=== PATIENT | female | born 1945 | race Caucasian/White ===

== ENCOUNTER → 2016-12-01 | Outpatient (CLI) | payer MEDICARE ==
--- NOTE | 2016-12-01 17:34 | BD ---
EXAMINATION TYPE: MG DEXA axial skeleton. DATE OF EXAM: 12/01/2016 COMPARISON: NONE CLINICAL HISTORY: Postmenopausal female. Height: 5 FT 4 1/2 IN Weight: 147 FRAX RISK QUESTIONS: Alcohol (3 or more units per day): NO Family History (Parent hip fracture): NO Glucocorticoids (More than 3mos): NO (Ex: prednisone, prednisolone, methylprednisolone, dexamethasone, and hydrocortisone). History of Fracture in Adulthood: NO Secondary Osteoporosis: 1. Type 1 Diabetes: NO 2. Hyperthyroidism: NO 3. Menopause before 45: YES 4. Malnutrition: NO 5. Chronic liver disease: NO Rheumatoid Arthritis: NO Current Tobacco Use: NO RISK FACTORS HISTORY OF: History of Wrist Fracture: YES BOTH When: A CHILD Active: YES Postmenopausal woman: TOTAL HYST AGE 45 MEDICATIONS: Additional Medications: LORAZAPAN,IBUPROFEN 800 MG, Additional History: PT HAD BREAST CA 2016 RAD AND CHEMO EXAM MEASUREMENTS: Bone mineral densitometry was performed using the [employer] System. Bone mineral density as measured about the Lumbar spine is: ----- L1-L4(G/cm2): 0.901 T Score Values are as follows: ----- L2: -3.1 ----- L3: -2.3 ----- L4: -1.7 ----- L1-L4: -2.3 Bone mineral density has: Decreased -0.1 since the study of: 2013 Bone mineral density about the R hip (g/cm2): 0.533 Bone mineral density about the L hip (g/cm2): 0.564 T Score values are as follows: -----R Neck: -3.6 -----L Neck: -3.4 -----R Total: -3.8 -----L Total: -3.8 Bone mineral density has: Decreased -13.4 centimeters study of: 2013 IMPRESSION: OSTEOPOROSIS. NOTE: T-SCORE=SD OF THE YOUNG ADULT MEAN.
== END | disposition home or self-care (01) ==
LOC: RADBDWWP 16:06
PROVIDERS: ATTEND Internal Medicine Hematology & Oncology
DX: M81.0 Age-related osteoporosis without current pathological fracture (principal); C50.311 Malignant neoplasm of lower-inner quadrant of right female breast; C50.511 Malignant neoplasm of lower-outer quadrant of right female breast; Z78.0 Asymptomatic menopausal state
CPT/HCPCS: 77080

== ENCOUNTER → 2016-12-23 | Outpatient (CLI) | payer MEDICARE ==
--- NOTE | 2016-12-23 15:18 | NM ---
EXAMINATION TYPE: NM bone scan whole body DATE OF EXAM: 12/23/2016 COMPARISON: NONE HISTORY: Breast CA Delayed whole-body scanning was performed following the injection of mCi Tc 99m MDP. Images acquired hours post injection. FINDINGS: No scintigraphic evidence to suggest metastatic disease at this time. Degenerative uptake about the s houlders, right hand and wrist, left hand and wrist, bilateral knees and left hip. IMPRESSION: No scintigraphic evidence to suggest metastatic disease at this time.
== END | disposition home or self-care (01) ==
LOC: RADNMMAIN 11:23
PROVIDERS: ATTEND Internal Medicine Hematology & Oncology
DX: C50.311 Malignant neoplasm of lower-inner quadrant of right female breast (principal); C50.511 Malignant neoplasm of lower-outer quadrant of right female breast
CPT/HCPCS: 78306; A9503

== ENCOUNTER → 2017-04-08 | Day surgery (SDC) | payer MEDICARE ==
--- NOTE | 2017-04-08 13:25 | USB ---
EXAMINATION TYPE: US biopsy breast VAD LT, MG diagnostic mammo LT wo CAD DATE OF EXAM: 04/08/2017 CLINICAL HISTORY: Z85.3 HX right-sided BREAST CA. Abnormal ultrasound. Palpable abnormality and lump right breast. TECHNIQUE: Ultrasound guided core biopsy of left breast with clip placement and follow-up two-view mammogram. COMPARISON: Left breast ultrasound March 12, 2017 FINDINGS: The procedure of ultrasound guided core biopsy was explained to the patient. Benefits, alternatives, and risks were discussed. An informed consent was then obtained. The patient was placed in supine positioning for imaging and for the procedure. Preprocedure imaging redemonstrates small curvilinear fluid collection 4:00 position left breast adjacent to area of heterogeneous hypoechoic tissue. The overlying skin was prepped and draped in usual sterile fashion. Lidocaine was used as anesthetic into the skin. Lidocaine with epinephrine is used as anesthetic into the deeper tissue up to area of concern in the left breast. Under ultrasound guidance, a 12-gauge vacuum assisted biopsy gun device was used to obtain 3 core samples. Following this, a biopsy clip was left in lesion. The patient tolerated the procedure well without any immediate complication. The patient was kept in the radiology department for short stay after the procedure and then discharged home in stable condition. Postprocedure mammogram shows successful deployment of clip. IMPRESSION: Successful, uncomplicated ultrasound guided core biopsy of area of concern in the left breast, full pathology results to follow. Intermediate index of suspicion noted at time of procedure. Pathology Results: Benign BREAST, LEFT, ULTRASOUND GUIDED CORE BIOPSY: FAT NECROSIS WITH FIBROSIS AND CHRONIC INFLAMMATION. NEGATIVE FOR MALIGNANCY Recommendation Follow up ultrasound of the left breast in 6 months. SUKHI
[2017-04-08 23:26] VITALS: BP 153/77; PULSE 86; RESP 16; TEMP 98.2; BMI 26.9
== END ==
LOC: RADUSWWP 11:51
PROVIDERS: ATTEND Plastic Surgery
DX: R92.8 Other abnormal and inconclusive findings on diagnostic imaging of breast (principal); N64.1 Fat necrosis of breast; N60.32 Fibrosclerosis of left breast; Z85.3 Personal history of malignant neoplasm of breast
CPT/HCPCS: 88305; 77065; 19083; A4648; J2001

== ENCOUNTER → 2017-06-10 | Outpatient (CLI) | payer MEDICARE ==
--- NOTE | 2017-06-11 11:21 | MM ---
Reason for exam: screening (asymptomatic). Last mammogram was performed 2 months ago. History: Patient is postmenopausal and has history of breast cancer at age 70. Family history of breast cancer in maternal aunt. Benign US biopsy breast VAD LT of the left breast, April 08, 2017. Malignant US biopsy breast VAD RT of the right breast, November 15, 2015. Malignant US biopsy breast add'l VAD RT of the right breast, November 15, 2015. Physical Findings: A clinical breast exam by your physician is recommended on an annual basis and results should be correlated with mammographic findings. MG 3D Screening Mammo W/Cad Bilateral CC and MLO view(s) were taken. Prior study comparison: October 18, 2015, bilateral MG 3d screening mammo w/cad. November 21, 2013, bilateral MG screening mammo w CAD. No significant changes when compared with prior studies. ASSESSMENT: Benign, BI-RAD 2 RECOMMENDATION: Routine screening mammogram of both breasts in 1 year.
== END | disposition home or self-care (01) ==
LOC: RADMAMWWP 15:13
PROVIDERS: ATTEND Surgery
DX: Z12.31 Encounter for screening mammogram for malignant neoplasm of breast (principal)
CPT/HCPCS: 77063; 77067

== ENCOUNTER → 2017-06-12 | Outpatient (CLI) | payer MEDICARE ==
--- NOTE | 2017-06-12 16:05 | XR ---
EXAMINATION TYPE: XR chest 2V DATE OF EXAM: 06/12/2017 COMPARISON: 01/07/2016 HISTORY: Shortness of breath and breast cancer TECHNIQUE: Frontal and lateral views of the chest are obtained. FINDINGS: Mildly prominent pulmonary vasculature without cephalization are unchanged from the prior o f 01/07/2016. Right-sided Mediport has been removed in the interim. There is no focal air space opacit y, pleural effusion, or pneumothorax seen. The cardiac silhouette size is within normal limits. Th e osseous structures are intact. There is diffuse osseous demineralization. Minimal multilevel degene rative changes of the thoracic spine are seen. IMPRESSION: No acute cardiopulmonary process.
== END | disposition home or self-care (01) ==
LOC: RADXRMAIN 15:09
PROVIDERS: ATTEND Nurse Practitioner Adult Health
DX: C50.311 Malignant neoplasm of lower-inner quadrant of right female breast (principal); C50.511 Malignant neoplasm of lower-outer quadrant of right female breast; M06.9 Rheumatoid arthritis, unspecified; Z17.1 Estrogen receptor negative status [ER-]
CPT/HCPCS: 71046

== ENCOUNTER → 2017-06-16 | Outpatient (CLI) | payer MEDICARE ==
--- NOTE | 2017-06-16 18:28 | ECHOF ---
Referral Reason:increasing shortness of breath R06.02 MEASUREMENTS -------- HEIGHT: 167.6 cm WEIGHT: 76.7 kg BP: RVIDd: 2.3 cm (< 3.3) IVSd: 1.1 cm (0.6 - 1.1) LVIDd: 3.7 cm (3.9 - 5.3) LVPWd: 1.1 cm (0.6 - 1.1) IVSs: 1.7 cm LVIDs: 2.6 cm LVPWs: 1.6 cm LAESV Index (A-L): 17.53 ml/m Ao Diam: 3.4 cm (2.0 - 3.7) AV Cusp: 2.0 cm (1.5 - 2.6) LA Diam: 2.9 cm (2.7 - 3.8) MV EXCURSION: 17.007 mm (> 18.000) MV EF SLOPE: 75 mm/s (70 - 150) EPSS: 0.9 cm MV E Apco: 0.63 m/s MV DecT: 277 ms MV A Paco: 0.85 m/s MV E/A Ratio: 0.73 RAP: 5.00 mmHg RVSP: 32.20 mmHg FINDINGS -------- Sinus rhythm. Pulsatile mass in the liver. May consider computed tomography scan or ultrasound of the liver for further evaluation This was a technically good study. The left ventricular size is normal. There is borderline concentric left ventricular hypertrophy. Overall left ventricular systolic function is normal with, an EF between 55 - 60 %. The right ventricle is normal in size and function. Normal LA size by volume 22+/-6 ml/m2. The right atrium is normal in size. The aortic valve is trileaflet, and appears structurally normal. No aortic stenosis or regurgitation. Mild mitral annular calcification present. There is trace to mild mitral regurgitation. Trace tricuspid regurgitation present. Right ventricular systolic pressure is normal at < 35 mmHg. There is no evidence of pulmonary hypertension. Trace/mild (physiologic) pulmonic regurgitation. The aortic root size is normal. Normal inferior vena cava with normal inspiratory collapse consistent with estimated right atrial pre ssure of 5 mmHg. There is a small pericardial effusion is located near the right ventricle. Incidental finding in li alicia. CONCLUSIONS -------- 1. Sinus rhythm. 2. Pulsatile mass in the liver. May consider computed tomography scan or ultrasound of the liver for further evaluation 3. This was a technically good study. 4. The left ventricular size is normal. 5. There is borderline concentric left ventricular hypertrophy. 6. Overall left ventricular systolic function is normal with, an EF between 55 - 60 %. 7. Normal LA size by volume 22+/-6 ml/m2. 8. The aortic valve is trileaflet, and appears structurally normal. No aortic stenosis or regurgitati on. 9. Mild mitral annular calcification present. 10. There is trace to mild mitral regurgitation. 11. Trace tricuspid regurgitation present. 12. Right ventricular systolic pressure is normal at < 35 mmHg. 13. There is no evidence of pulmonary hypertension. 14. Trace/mild (physiologic) pulmonic regurgitation. 15. The aortic root size is normal. 16. There is a small pericardial effusion is located near the right ventricle. 17. Incidental finding in liver. HOG STOMACH PREPARER: Suhail Joseph RDCS
== END | disposition home or self-care (01) ==
LOC: RADECHMAIN 12:50
PROVIDERS: ATTEND Internal Medicine Hematology & Oncology
DX: I34.0 Nonrheumatic mitral (valve) insufficiency (principal); I31.3 Pericardial effusion (noninflammatory); Z88.0 Allergy status to penicillin
CPT/HCPCS: 93306

== ENCOUNTER → 2017-07-03 | Outpatient (CLI) | payer MEDICARE ==
--- NOTE | 2017-07-03 08:33 | US ---
EXAMINATION TYPE: US liver DATE OF EXAM: 07/03/2017 COMPARISON: PET/CT 12/01/2015 CLINICAL HISTORY: C50.311 Breast Ca, R93.8 Abnormal Imaging. Liver lesion seen on recent echo, histor y of breast cancer EXAM MEASUREMENTS: Liver Length: 13.2 cm Gallbladder Wall: 0.3 cm CBD: 0.4 cm Right Kidney: 10.7 x 3.9 x 4.2 cm Pancreas: visualized portions appear wnl Liver: heterogeneous in appearance with multiple probable complex cystic areas, largest = 6.7 x 5.9 x 6.7cm Gallbladder: no evidence of stones Evidence for sonographic Martinez's sign: no CBD: wnl Right Kidney: no evidence of hydronephrosis IMPRESSION: 1. Multiple large cystic lesions throughout the liver were present on prior PET/CT fusion dated 2015.
== END ==
LOC: RADUSWWP 07:27
PROVIDERS: ATTEND Internal Medicine Hematology & Oncology
DX: C50.311 Malignant neoplasm of lower-inner quadrant of right female breast (principal); K76.89 Other specified diseases of liver
CPT/HCPCS: 76705

== ENCOUNTER → 2017-12-01 | Outpatient (CLI) | payer MEDICARE ==
--- NOTE | 2017-12-01 14:37 | US ---
EXAMINATION TYPE: US carotid duplex BILAT DATE OF EXAM: 12/01/2017 COMPARISON: NONE CLINICAL HISTORY: I65.23 Occlusion and stenosis of bilateral carotid. Patient denies symptoms. EXAM MEASUREMENTS: RIGHT: Peak Systolic Velocity (PSV) cm/sec ----- Right CCA: 72.9 ----- Right ICA: 74.7 ----- Right ECA: 69.6 ICA/CCA ratio: 1.0 RIGHT: End Diastole cm/sec ----- Right CCA: 22.3 ----- Right ICA: 25.0 ----- Right ECA: 0.0 LEFT: Peak Systolic Velocity (PSV) cm/sec ----- Left CCA: 68.8 ----- Left ICA: 83.6 ----- Left ECA: 88.6 ICA/CCA ratio: 1.2 LEFT: End Diastole cm/sec ----- Left CCA: 17.1 ----- Left ICA: 20.2 ----- Left ECA: 20.4 VERTEBRALS (direction of flow): Right Vertebral: Antegrade Left Vertebral: Antegrade Rhythm: Arrhythmia Moderate and irregular intimal wall changes are noted at bilateral carotid bifurcation, but PSV is wn l. IMPRESSION: Atheromatous plaquing and intimal thickening. Significant flow-limiting stenosis is not evident. Criteria for Assigning % of Stenosis / Diameter reduction (Estimation based on the indirect measurements of the internal carotid artery velocities (ICA PSV). 1. Normal (no stenosis)=ICA PSV < 125 cm/s: ratio < 2.0: ICA EDV<40 cm/s. 2. Less than 50% stenosis=ICA PSV < 125 cm/s: ratio < 2.0: ICA EDV<40 cm/s. 3. 50 to 69% stenosis=ICA PSV of 125 to 230 cm/s: ration 2.0 ? 4.0: ICA EDV 40-100 cm/s. 4. Greater than 70% stenosis to near occlusion= ICA PSV > 230 cm/s: ratio > 4.0: ICA EDV > 100 cm/s. 5. Near occlusion= ICA PSV velocities may be low or undetectable: variable ratio and ICA EDV. 6. Total occlusion=unable to detect flow.
== END | disposition home or self-care (01) ==
LOC: RADUSWWP 12:38
PROVIDERS: ATTEND Internal Medicine
DX: I67.2 Cerebral atherosclerosis (principal); I65.23 Occlusion and stenosis of bilateral carotid arteries
CPT/HCPCS: 93880

== ENCOUNTER → 2018-04-12 | Outpatient (CLI) | payer MEDICARE ==
--- NOTE | 2018-04-12 15:47 | BD ---
EXAMINATION TYPE: Axial Bone Density DATE OF EXAM: 04/12/2018 Comparison: Prior DEXA bone scan 2016. CLINICAL HISTORY: Height: 64.25 Weight: 155 FRAX RISK QUESTIONS: Alcohol (3 or more units per day): no Family History (Parent hip fracture): father broke femur, unsure if hip Glucocorticoids (More than 3mos): no (Ex: prednisone, prednisolone, methylprednisolone, dexamethasone, and hydrocortisone). History of Fracture in Adulthood: no Secondary Osteoporosis: 1. Type 1 Diabetes: no 2. Hyperthyroidism: no 3. Menopause before 45: yes 4. Malnutrition: no 5. Chronic liver disease: no Rheumatoid Arthritis: yes Current Tobacco Use: no RISK FACTORS HISTORY OF: History of Wrist Fracture: yes, both When: as child Surgery to Wrist (left): yes When: as young child Family History of Osteoporosis: unsure Active: yes Diet low in dairy products/other sources of calcium: no Postmenopausal woman: yes Take estrogen and/or progesterone medications: no Lost more than 2 inches in height since high school: yes Frequent falls: no Poor Health: no Hyperparathyroidism: no Adrenal Insufficiency: no MEDICATIONS: Thyroid Medications: no Osteoporosis Medications: no Additional Medications: Calcium & Vitamin D , Duloxetine HCL, Omeprazole, Lorazepam, Letrozole, ibupr ofen Additional History: Breast CA 2016/radiation-chemo EXAM MEASUREMENTS: Bone mineral densitometry was performed using the [employer] System. Bone mineral density as measured about the Lumbar spine is: ----- L1-L4(G/cm2): 0.769 T Score Values are as follows: ----- L2: -3.7 ----- L3: -3.4 ----- L4: -3.4 ----- L1-L4: -3.4 Bone mineral density has: Decreased -15.1% since study of: 12/01/2016 Bone mineral density about the R hip (g/cm2): 0.541 Bone mineral density about the L hip (g/cm2): 0.567 T Score values are as follows: -----R Neck: -3.6 -----L Neck: -3.4 -----R Total: -3.7 -----L Total: -3.7 Bone mineral density has: Increased 2.1% since study of: 12/01/2016 IMPRESSION: Osteoporosis (T Score less than -2.5) persistent bilateral hips and is now present in the low back. There remains increased fracture risk and therapy is usually indicated based on age. Re-Screen 1-2 years. NOTE: T-SCORE=SD OF THE YOUNG ADULT MEAN.
== END | disposition home or self-care (01) ==
LOC: RADBDWWP 12:23
PROVIDERS: ATTEND Internal Medicine Hematology & Oncology
DX: C50.311 Malignant neoplasm of lower-inner quadrant of right female breast (principal); M81.0 Age-related osteoporosis without current pathological fracture
CPT/HCPCS: 77080

== ENCOUNTER → 2018-06-11 | Outpatient (CLI) | payer MEDICARE ==
--- NOTE | 2018-06-11 11:52 | MM ---
Reason for exam: additional evaluation requested from prior study. Last mammogram was performed 1 year ago. History: Patient is postmenopausal and has history of breast cancer at age 70. Family history of breast cancer in maternal aunt. Benign US biopsy breast VAD LT of the left breast, April 08, 2017. Reductions of both breasts, 2017. Malignant US biopsy breast VAD RT of the right breast, November 15, 2015. Malignant US biopsy breast add'l VAD RT of the right breast, November 15, 2015. Chemotherapy, 2016. Radiation therapy, 2016. Taking antineoplastic for 3 years. Physical Findings: Nurse Summary: 1.5 x 2cm nodule in the left breast at 4 o'clock (nurse ts). MG 3D Diag Mammo W/Cad CHRIS Bilateral CC and MLO view(s) were taken. Prior study comparison: June 10, 2017, bilateral MG 3d screening mammo w/cad. April 08, 2017, left breast MG diagnostic mammo LT wo CAD. There is a distortion and increased density. There are benign appearing round calcifications in the left breast consistent with fat necrosis dystrophic calcifications. Previous mammotome biopsy in the left breast. There is chronic nodularity in the left breast. These results were verbally communicated with the patient and result sheet given to the patient on 06/11/18. ASSESSMENT: Probably benign, BI-RAD 3 RECOMMENDATION: Follow-up diagnostic mammogram of the left breast in 6 months.
== END | disposition home or self-care (01) ==
LOC: RADMAMWWP 10:45
PROVIDERS: ATTEND Radiology Radiation Oncology
DX: C50.311 Malignant neoplasm of lower-inner quadrant of right female breast (principal); Z17.0 Estrogen receptor positive status [ER+]
CPT/HCPCS: 77066; G0279; 77062

== ENCOUNTER → 2018-12-13 | Outpatient (CLI) | payer MEDICARE ==
--- NOTE | 2018-12-14 07:04 | MM ---
Reason for exam: follow-up at short interval from prior study. Last mammogram was performed 6 months ago. History: Patient is postmenopausal and has history of breast cancer at age 70. Family history of breast cancer in maternal aunt at age 70. Benign US biopsy breast VAD LT of the left breast, April 08, 2017. Reductions of both breasts, 2017. Malignant US biopsy breast VAD RT of the right breast, November 15, 2015. Malignant US biopsy breast add'l VAD RT of the right breast, November 15, 2015. Chemotherapy, 2015. Radiation therapy, 2016. Took hormonal contraceptives for 10 years. Taking antineoplastic for 3 years. Physical Findings: Nurse Summary: 2cm nodule in the left breast at 3 o'clock (nurse TM). MG 3D Diag Mammo W/Cad LT CC and MLO view(s) were taken of the left breast. Prior study comparison: June 11, 2018, bilateral MG 3d diag mammo w/cad CHRIS. June 10, 2017, bilateral MG 3d screening mammo w/cad. The breast tissue is almost entirely fat. Large area of fat necrosis left breast is stable with dystrophic calcifications. These results were verbally communicated with the patient and result sheet given to the patient on 12/13/18. ASSESSMENT: Benign, BI-RAD 2 RECOMMENDATION: Follow-up diagnostic mammogram of both breasts in 6 months. Manage patient on a clinical basis.
== END | disposition home or self-care (01) ==
LOC: RADMAMWWP 15:11
PROVIDERS: ATTEND Radiology Radiation Oncology
DX: C50.311 Malignant neoplasm of lower-inner quadrant of right female breast (principal); Z17.0 Estrogen receptor positive status [ER+]
CPT/HCPCS: 77065; G0279; 77061

== ENCOUNTER → 2019-04-21 | Day surgery (SDC) | payer MEDICARE ==
[2019-04-19 15:17] VITALS: BMI 26.0
[~2019-04-21] MED LIST: LACTATED RINGERS 1,000 ML IV SCH; PROPOFOL 10 MG/ML 20 ML VIAL IV ONE
[2019-04-21 09:57] VITALS: TEMP 98.2
[2019-04-21 10:00] LABS: Glucose,Whole Blood 155 mg/dL (75-99)
--- NOTE | 2019-04-21 10:55 | P.PCN ---
Date of Procedure: 04/21/19 Procedure(s) Performed: BRIEF HISTORY: Patient is a 73-year-old pleasant white female scheduled for an elective colonoscopy as a part of evaluation of positive cologuard. PROCEDURE PERFORMED: Attempted Colonoscopy. PREOPERATIVE DIAGNOSIS: Positive cologuard. IV sedation per Anesthesia. PROCEDURE: After informed consent was obtained, the patient, was brought into the endoscopy unit. IV sedation was administered by Anesthesia under continuous monitoring. Digital rectal examination was normal. Initially the Olympus CF-160 flexible video colonoscope was then inserted in the rectum, gradually advanced into the sigmoid: Further advancement was not possible because of acute angulation in this area. Despite multiple attempts and changing the scope to a pediatric colonoscopy was still unable to advance into the descending colon. At this time procedure was terminated. Scattered sigmoid diverticulosis seen. Mucosa of the sigmoid colon, and rectum appeared normal. Retroflexion was performed in the rectum and no lesions were seen. The patient tolerated the procedure well. IMPRESSION: Attempted colonoscopy up to the sigmoid: Further advancement was not possible because of acute angulation in this area. Sigmoid diverticula RECOMMENDATIONS: Findings of this examination were discussed with the patient as well as his family. She will be scheduled for a barium enema today to examine the rest of the colon. She'll be seen in office in 2 weeks.
[2019-04-21 11:07] VITALS: RESP 18
[2019-04-21 13:39] VITALS: BP 112/67; PULSE 62
--- NOTE | 2019-04-21 15:37 | XR ---
EXAMINATION TYPE: XR abdomen 1V DATE OF EXAM: 04/21/2019 2:15 PM CLINICAL HISTORY: Incomplete colonoscopy. TECHNIQUE: Single supine KUB image of the abdomen is obtained. COMPARISON: None. FINDINGS: Air is seen throughout the colon dilating the colon up to 7.0 cm. The entirety of the bowel is not visualized on this image was to evaluate for the possibility of barium enema. No dilated smal l bowel. Diffuse osseous demineralization and degenerative changes of the lumbar spine and hips. IMPRESSION: Postprocedure air mildly dilated portions of the colon.
--- NOTE | 2019-04-22 12:15 | FL ---
EXAMINATION TYPE: FL barium enema DATE OF EXAM: 04/22/2019 COMPARISON: None HISTORY: Incomplete colonoscopy TECHNIQUE: Attempts to perform a double air contrast unsuccessful due to the cooperative patient's in ability ability to roll onto her stomach. Study was performed as a single contrast study. Fluoroscopy time: 1 minute 48 seconds. Images: 25 FINDINGS: Barium is refluxed through the colon to appears to be the cecum. The appendix is not identi fied. The terminal ileum was not identified. Diverticular changes are within the sigmoid colon. No persistent suspicious area of circumferential n arrowing is evident. There are some additional scattered diverticuli present in the proximal transver se colon. Postevacuation film appears unremarkable. IMPRESSION: 1. Diverticulosis.
== END ==
LOC: ORWHC2ENDO 09:09
PROVIDERS: ATTEND Internal Medicine Gastroenterology
DX: K57.30 Diverticulosis of large intestine without perforation or abscess without bleeding (principal); E11.9 Type 2 diabetes mellitus without complications; M06.9 Rheumatoid arthritis, unspecified; K21.9 Gastro-esophageal reflux disease without esophagitis; Z86.69 Personal history of other diseases of the nervous system and sense organs; Z79.52 Long term (current) use of systemic steroids; Z79.84 Long term (current) use of oral hypoglycemic drugs; Z98.890 Other specified postprocedural states; Z88.0 Allergy status to penicillin; Z87.891 Personal history of nicotine dependence
CPT/HCPCS: 74018; 45330; J2704; 45378; 74270

== ENCOUNTER → 2019-04-22 | Outpatient (CLI) | payer MEDICARE | END | disposition home or self-care (01) | LOC: RADFLMAIN 08:07 | PROVIDERS: ATTEND Internal Medicine Gastroenterology | DX: Z53.9 Procedure and treatment not carried out, unspecified reason (principal) ==

== ENCOUNTER → 2019-06-13 | Outpatient (CLI) | payer MEDICARE ==
--- NOTE | 2019-06-13 13:59 | MM ---
Reason for exam: follow-up at short interval from prior study. Last mammogram was performed 6 months ago. History: Patient is postmenopausal and has history of breast cancer at age 70. Family history of breast cancer in maternal aunt at age 70. Benign US biopsy breast VAD LT of the left breast, April 08, 2017. Reductions of both breasts, 2017. Malignant US biopsy breast VAD RT of the right breast, November 15, 2015. Malignant US biopsy breast add'l VAD RT of the right breast, November 15, 2015. Chemotherapy, 2015. Radiation therapy, 2015. Took hormonal contraceptives for 10 years. Taking antineoplastic for 3 years. Physical Findings: Nurse Summary: lateral 1 x 1.5cm nodule in the left breast at 3 o'clock, medial 0.5 x 1cm nodule in the left breast at 3 o'clock (nurse ts). MG 3D Diag Mammo W/Cad CHRIS Bilateral CC and MLO view(s) were taken. Prior study comparison: December 13, 2018, left breast MG 3d diag mammo w/cad LT. June 11, 2018, bilateral MG 3d diag mammo w/cad CHRIS. There are scattered fibroglandular densities. No suspicious abnormality. Post therapy change on the left and associated fat necrosis. Left upper outer quadrant stable probable intramammary lymph node. No significant new findings when compared with previous films. These results were verbally communicated with the patient and result sheet given to the patient on 06/13/19. ASSESSMENT: Benign, BI-RAD 2 RECOMMENDATION: Routine screening mammogram of both breasts in 1 year.
== END | disposition home or self-care (01) ==
LOC: RADMAMWWP 12:57
PROVIDERS: ATTEND Radiology Radiation Oncology
DX: C50.311 Malignant neoplasm of lower-inner quadrant of right female breast (principal); Z17.0 Estrogen receptor positive status [ER+]
CPT/HCPCS: 77066; G0279; 77062

== ENCOUNTER → 2020-07-03 | Outpatient (CLI) | payer MEDICARE ==
--- NOTE | 2020-07-03 16:49 | BD ---
EXAMINATION TYPE: Axial Bone Density DATE OF EXAM: 07/03/2020 COMPARISON: 04/12/2018 CLINICAL HISTORY: Postmenopausal screening Height: 63.5 IN Weight: 164 LBS FRAX RISK QUESTIONS: Secondary Osteoporosis: 3. Menopause before 45: TOTAL HYST AGE 35 Rheumatoid Arthritis: YES RISK FACTORS HISTORY OF: History of Wrist Fracture: CHRIS WRIST FX AGE 10 Surgery to Wrist (CHRIS): APPROX AGE 10 Active: LIMITED Diet low in dairy products/other sources of calcium: YES Postmenopausal woman: TOTAL HYST AGE 35 Take estrogen and/or progesterone medications: NOT NOW . TOOK 5 YEARS Lost more than 2 inches in height since high school: YES 04/07" MEDICATIONS: Additional Medications: OMEPRAZOLE, DULOXETINE, RALOXIFENE, METFORMIN, LORAZEPAM, LISINOPRIL Additional History: BREAST CANCER WITH CHEMO AND RADIATION EXAM MEASUREMENTS: Bone mineral densitometry was performed using the [employer] System. Bone mineral density as measured about the Lumbar spine is: ----- L1-L4(G/cm2): 0.931 T Score Values are as follows: ----- L2: -2.3 ----- L3: -1.8 ----- L4: -1.9 ----- L1-L4: -2.1 Bone mineral density has: Increased 23.2% since study of: 04/12/2018 Bone mineral density about the R hip (g/cm2): 0.519 Bone mineral density about the L hip (g/cm2): 0.614 T Score values are as follows: -----R Neck: -3.7 -----L Neck: -3.0 -----R Total: -3.3 -----L Total: -3.4 Bone mineral density has: Increased 8.5% since study of: 04/12/2018 IMPRESSION: Osteoporosis (T Score less than -2.5). There is increased fracture risk and therapy is usually indicated based on age. Re-Screen 1-2 years. NOTE: T-SCORE=SD OF THE YOUNG ADULT MEAN.
--- NOTE | 2020-07-05 13:53 | MM ---
Reason for exam: screening (asymptomatic). Last mammogram was performed 1 year and 1 month ago. History: Patient is postmenopausal and has history of breast cancer at age 70. Family history of breast cancer in maternal aunt at age 70. Benign US biopsy breast VAD LT of the left breast, April 08, 2017. Reductions of both breasts, 2017. Malignant US biopsy breast VAD RT of the right breast, November 15, 2015. Malignant US biopsy breast add'l VAD RT of the right breast, November 15, 2015. Chemotherapy, 2015. Radiation therapy, 2015. Took hormonal contraceptives for 10 years. Taking antineoplastic for 3 years. Physical Findings: A clinical breast exam by your physician is recommended on an annual basis and results should be correlated with mammographic findings. MG 3D Screening Mammo W/Cad Bilateral CC and MLO view(s) were taken. Prior study comparison: June 13, 2019, bilateral MG 3d diag mammo w/cad CHRIS. December 13, 2018, left breast MG 3d diag mammo w/cad LT. Chronic changes in the left breast. No significant changes when compared with prior studies. ASSESSMENT: Benign, BI-RAD 2 RECOMMENDATION: Routine screening mammogram of both breasts in 1 year.
== END | disposition home or self-care (01) ==
LOC: RADMAMWWP 10:20
PROVIDERS: ATTEND Internal Medicine Hematology & Oncology
DX: Z12.31 Encounter for screening mammogram for malignant neoplasm of breast (principal); M81.0 Age-related osteoporosis without current pathological fracture; Z78.0 Asymptomatic menopausal state; Z80.3 Family history of malignant neoplasm of breast; Z85.3 Personal history of malignant neoplasm of breast
CPT/HCPCS: 77063; 77067; 77080

== ENCOUNTER 2020-12-07 13:18 | Emergency (ER) | payer MEDICARE ==
--- NOTE | 2020-12-07 14:53 | CT ---
EXAMINATION TYPE: CT brain gaye barnard DATE OF EXAM: 12/07/2020 COMPARISON: None HISTORY: fall CT DLP: 1020.[address] of the brain was performed. The ventricles, basal cisterns and sulci overlying the cerebral convexities demonstrate mild enlargem ent. There is no evidence for intracranial hemorrhage or sulcal effacement. There is decreased attenuatio n about the periventricular white matter and deep white matter of both cerebral hemispheres, compatib le with chronic small vessel ischemia. No mass effects are seen. If symptoms persist consider MRI. Osseous calvarium is intact. IMPRESSION: 1. Age related atrophic and chronic small vessel ischemic change without acute intracranial process seen at this time. CT Cervical Spine: Unenhanced CT of the cervical spine was performed with bone and soft tissue window settings submitted . Coronal and sagittal reconstruction is obtained. There is normal alignment and prevertebral soft tissues. No evidence for acute cervical fracture . Mo derate degenerative disc disease and spondylosis. Biapical scarring. IMPRESSION: 1. No evidence for acute fracture or subluxation of the cervical spine.
--- NOTE | 2020-12-07 14:56 | CT ---
EXAMINATION TYPE: CT facial bones wo con DATE OF EXAM: 12/07/2020 COMPARISON: None HISTORY: fall CT DLP: 798.[address] of the facial bones was performed in the axial and coronal planes. Bone and soft tissu e window settings are submitted. There is displaced and depressed nasal bone fracture with nasal spine involvement. Soft tissue swelli ng noted. No additional fracture seen. The globes are intact. Paranasal sinuses are well-aerated. IMPRESSION: 1. There is displaced and depressed nasal bone fracture with nasal spine involvement.
--- NOTE | 2020-12-07 15:21 | XR ---
EXAMINATION TYPE: XR hand complete RT DATE OF EXAM: 12/07/2020 COMPARISON: None HISTORY: Severe arthritis fixation of the hands TECHNIQUE: 3 view right hand FINDINGS: Advanced degenerative changes are present. There is extensive erosive changes of the fourth and fifth metacarpals. There is fusion of the metacarpal phalangeal regions of the thumb. Loss of prasanth int spaces. The index and middle fingers. Advanced degenerative changes are at radial carpal junction . There is fusion of the carpal and metacarpal osseous structures. An acute fracture is not identified. Follow-up can be performed 7-10 days from acute trauma for shukri nued pain. IMPRESSION: 1. No acute osseous abnormality. 2. Extensive destructive degenerative changes throughout the hand and wrist
--- NOTE | 2020-12-07 15:22 | ED ---
General Adult HPI - General Source: patient Mode of arrival: ambulatory Limitations: no limitations <Juancarlos Gill - Last Filed: 12/07/20 15:24> <Mariluz Brunner - Last Filed: 12/08/20 14:14> - General Chief complaint: Fall Stated complaint: Fall Time Seen by Provider: 12/07/20 13:40 - History of Present Illness Initial comments: 75-year-old female presents to the emergency room for a chief complaint of fall. Patient was in the bathroom and went to stand put something in a cabinet and tripped over the rug. Patient fell and hit her nose and mouth on the floor. No loss of consciousness. No blood thinners. Patient states her nose was bleeding but that has mostly resolved. Patient denies any loose teeth. Patient denies headache.Patient has no other complaints at this time including shortness of breath, chest pain, abdominal pain, nausea or vomiting, headache, or visual changes. (Juancarlos Gill) - Related Data Home Medications Medication Instructions Recorded Confirmed LORazepam [Ativan] 0.5 mg PO TID PRN 10/19/14 05/16/20 DULoxetine HCL [Cymbalta] 60 mg PO HS 04/19/19 05/16/20 Omeprazole 20 mg PO DAILY 04/19/19 05/16/20 Raloxifene [Evista] 60 mg PO HS 04/19/19 05/16/20 metFORMIN HCL [Glucophage] 500 mg PO BID 04/19/19 05/16/20 predniSONE 4 mg PO DAILY 04/19/19 05/16/20 Lisinopril [Prinivil] 10 mg PO DAILY 05/09/20 05/16/20 Allergies Allergy/AdvReac Type Severity Reaction Status Date / Time Penicillins Allergy Itching Verified 12/07/20 13:32 Review of Systems ROS Other: All systems not noted in ROS Statement are negative. <Juancarlos Gill - Last Filed: 12/07/20 15:24> ROS Other: All systems not noted in ROS Statement are negative. <Mariluz Brunner - Last Filed: 12/08/20 14:14> ROS Statement: Those systems with pertinent positive or pertinent negative responses have been documented in the HPI. Past Medical History Past Medical History: Cancer, GERD/Reflux, Rheumatoid Arthritis (RA) Additional Past Medical History / Comment(s): "head tremors", Right Breast Cancer (Nov 2015) History of Any Multi-Drug Resistant Organisms: None Reported Past Surgical History: Hysterectomy Additional Past Surgical History / Comment(s): right breast lumpectomy 2016,left breast reduction 2016 skin cysts removed, Breast bx. Past Anesthesia/Blood Transfusion Reactions: No Reported Reaction Past Psychological History: Anxiety Smoking Status: Former smoker Past Alcohol Use History: None Reported Past Drug Use History: None Reported - Past Family History Brother(s) Family Medical History: Cancer <Juancarlos Gill - Last Filed: 12/07/20 15:24> General Exam Limitations: no limitations General appearance: alert, in no apparent distress Head exam: Present: atraumatic Eye exam: Present: normal appearance, PERRL, EOMI. Absent: scleral icterus, conjunctival injection ENT exam: Present: normal exam, normal oropharynx, mucous membranes moist, other (tenderness to the nasal bridge. No epistaxis at this time. no septal hematoma.) Neck exam: Present: normal inspection, full ROM. Absent: tenderness Respiratory exam: Present: normal lung sounds bilaterally. Absent: respiratory distress, wheezes Cardiovascular Exam: Present: regular rate, normal rhythm, normal heart sounds GI/Abdominal exam: Present: soft, normal bowel sounds. Absent: distended, tenderness <Juancarlos Gill - Last Filed: 12/07/20 15:24> - General Exam Comments Initial Comments: Ecchymosis noted to the right third digit. Patient does have chronic deformities noted of the hands. There is minimal generalized tenderness of the right third digit. No other traumatic injury in the upper or lower extremities. (Juancarlos Gill) Course Vital Signs 12/07/20 12/07/20 13:29 15:44 Temperature 97.9 F 97.6 F Pulse Rate 79 76 Respiratory 16 18 Rate Blood Pressure 155/75 149/77 O2 Sat by Pulse 95 98 Oximetry Medical Decision Making <Juancarlos Gill - Last Filed: 12/07/20 15:24> <Mariluz Brunner - Last Filed: 12/08/20 14:14> - Medical Decision Making CT brain shows age-related atrophic and chronic small vessel ischemic changes without acute cranial process seen. CT cervical spine shows no evidence for acute fracture or subluxation. CT nasal bones does show a displaced and depressed nasal bone fracture with nasal spine involvement. X-ray of the right hand shows no acute osseous abnormality, destructive changes noted. Patient was given ENT follow-up. She was encouraged not to blow her nose. She will return for any worsening symptoms. (Juancarlos Gill) I was available for consultation in the emergency department. The history and physical exam were done by the midlevel provider. I was consulted for this patients care. I reviewed the case with the midlevel provider and based on their presentation of the patient, I agree with the assessment, medical decision making and plan of care as documented. Chart was dictated using [employer] dictation software. Attempts were made to correct any dictation errors however some typographical errors may persist. Patient was seen during a national state of emergency due to the Covid-19 pandemic. (Mariluz Brunner) Disposition Is patient prescribed a controlled substance at d/c from ED?: No Time of Disposition: 15:26 <Juancarlos Gill - Last Filed: 12/07/20 15:24> <Mariluz Brunner - Last Filed: 12/08/20 14:14> Clinical Impression: Nasal fracture Disposition: HOME SELF-CARE Condition: Good Instructions (If sedation given, give patient instructions): Nasal Fracture (ED) Additional Instructions: Take tylenol for pain. Ice the nose on and off. Try to refrain from blowing your nose. Return to the ER for any worsening symptoms. Other guevara follow up with ENT. Referrals: Nieves Martin MD [Primary Care Provider] - 1-2 days George Sharma MD [STAFF PHYSICIAN] - 1-2 days Aram Garcia MD [STAFF PHYSICIAN] - 1-2 days
[2020-12-07 15:46] VITALS: BP 149/77; PULSE 76; RESP 18; TEMP 97.6
== END 2020-12-07 15:47 | disposition home or self-care (01) ==
LOC: EC 13:18
DX: S02.2XXA Fracture of nasal bones, initial encounter for closed fracture (principal); K21.9 Gastro-esophageal reflux disease without esophagitis; M06.9 Rheumatoid arthritis, unspecified; F41.9 Anxiety disorder, unspecified; Z79.52 Long term (current) use of systemic steroids; Z79.84 Long term (current) use of oral hypoglycemic drugs; Z79.899 Other long term (current) drug therapy; Z87.891 Personal history of nicotine dependence; Z88.0 Allergy status to penicillin; Z85.3 Personal history of malignant neoplasm of breast; W01.0XXA Fall on same level from slipping, tripping and stumbling without subsequent striking against object, initial encounter
CPT/HCPCS: 70450; 70486; 72125; 99284

== ENCOUNTER → 2021-07-25 | Outpatient (CLI) | payer MEDICARE ==
--- NOTE | 2021-07-29 11:35 | MM ---
Reason for exam: screening (asymptomatic). Last mammogram was performed 1 year and 1 month ago. History: Patient is postmenopausal and has history of breast cancer at age 70. Family history of breast cancer in maternal aunt at age 70. Benign US biopsy breast VAD LT of the left breast, April 08, 2017. Reductions of both breasts, 2017. Malignant US biopsy breast VAD RT of the right breast, November 15, 2015. Malignant US biopsy breast add'l VAD RT of the right breast, November 15, 2015. Chemotherapy, 2015. Radiation therapy, 2016. Took hormonal contraceptives for 10 years. Taking antineoplastic for 3 years. Physical Findings: A clinical breast exam by your physician is recommended on an annual basis and results should be correlated with mammographic findings. MG 3D Screening Mammo W/Cad Bilateral CC and MLO view(s) were taken. Prior study comparison: July 03, 2020, bilateral MG 3d screening mammo w/cad. June 13, 2019, bilateral MG 3d diag mammo w/cad [facility]. There are scattered fibroglandular densities. Focal asymmetry in the left breast is stable. No significant changes when compared with prior studies. ASSESSMENT: Benign, BI-RAD 2 RECOMMENDATION: Routine screening mammogram of both breasts in 1 year.
== END | disposition home or self-care (01) ==
LOC: RADMAMWWP 13:11
PROVIDERS: ATTEND Internal Medicine Hematology & Oncology
DX: Z12.31 Encounter for screening mammogram for malignant neoplasm of breast (principal); Z78.0 Asymptomatic menopausal state; Z85.3 Personal history of malignant neoplasm of breast; Z80.3 Family history of malignant neoplasm of breast
CPT/HCPCS: 77063; 77067

== ENCOUNTER → 2022-06-12 | Outpatient (CLI) | payer MEDICARE ==
--- NOTE | 2022-06-12 14:57 | USB ---
Patient History: Menarche at age 11. First Full-Term at age 20. Left ovary removed at age 35. Right ovary removed at age 35. Hysterectomy at age 35. Postmenopausal. Breast cancer, age 70. Patient used Hormonal Contraceptives for 10 years. 2016, Bilateral Reduction. 04/08/2017, Benign Core Biopsy on the left side. 11/15/2015, Malignant Core Biopsy on the right side. 11/15/2015, Malignant Core Biopsy on the right side. 2015, Chemotherapy. 2015, Radiation Therapy. Maternal aunt had breast cancer, age 70. Prior Study Comparison: 06/13/2019 Bilateral Diagnostic Mammogram, [facility]. 07/03/2020 Bilateral Screening Mammogram, [facility]. 07/25/2021 Bilateral Screening Mammogram, [facility]. Findings: The axilla of the right breast was scanned. Electronically signed and approved by: Napoleon Palmer M.D. Radiologist
== END | disposition home or self-care (01) ==
LOC: RADUSWWP 12:00
PROVIDERS: ATTEND Internal Medicine
DX: D36.0 Benign neoplasm of lymph nodes (principal); Z78.0 Asymptomatic menopausal state; Z80.3 Family history of malignant neoplasm of breast

== ENCOUNTER → 2022-07-07 | Outpatient (CLI) | payer MEDICARE ==
--- NOTE | 2022-07-07 15:40 | BD ---
EXAMINATION TYPE: Axial Bone Density DATE OF EXAM: 07/07/2022 CLINICAL HISTORY: 76 years old Female. 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 History of Fracture in Adulthood: Yes, left toe, nasal bone Secondary Osteoporosis: 1. Type 1 Diabetes: Yes 2. Hyperthyroidism: No 3. Menopause before 45: Yes, in her 30's, hysterectomy 4. Malnutrition: No 5. Chronic liver disease: No Rheumatoid Arthritis: Possibly, doctor said she could have both Current Tobacco Use: No RISK FACTORS HISTORY OF: Hip Fracture (Right/Left): No Spine Fracture: No History of Wrist Fracture: Yes, bilateral wrist fracture when young Surgery to Spine/Hip(right/left)/Wrist (right/left): No Family History of Osteoporosis: Unknown Active: No Diet low in dairy products/other sources of calcium: No Postmenopausal woman: Yes Lost more than 2 inches in height since high school: No Frequent falls: Yes, 3-4 times in last couple years Poor Health: No Hyperparathyroidism: No Adrenal Insufficiency: No MEDICATIONS: Prednisone or other steroids: Yes, Prednisone, 4 weeks left to take Thyroid Medications: No Osteoporosis Medications: No Additional Medications: Lipitor, omeprazole, vitamin D3, calcium, anti-anxiety/depression meds (ralox ifene), diabetic medications including metformin, prednisone Additional History: Breast cancer with chemotherapy and radiation (approx.. 7 years ago) EXAM MEASUREMENTS: Bone mineral densitometry was performed using the [employer] System. Bone mineral density as measured about the Lumbar spine is: ----- L1-L4(G/cm2): 0.894 T Score Values are as follows: ----- L1: -3.2 ----- L2: -3.2 ----- L3: -1.9 ----- L4: -1.7 ----- L1-L4: -2.4 Z Score Values are as follows: ----- L1: -1.6 ----- L2: -1.6 ----- L3: -0.3 ----- L4: -0.1 ----- L1-L4: -0.8 Bone mineral density has: decreased -4.3% since study of: 07/03/2020 Bone mineral density about the R hip (g/cm2): 0.586 Bone mineral density about the L hip (g/cm2): 0.581 T Score values are as follows: -----R Neck: -3.1 -----L Neck: -2.7 -----R Total: -3.3 -----L Total: -3.4 Z Score values are as follows: -----R Neck: -1.2 -----L Neck: -0.9 -----R Total: -1.7 -----L Total: -1.7 Bone mineral density has: decreased -0.5% since study of: 07/03/2020 FRAX%s: The graph provided illustrates a 32.6% chance for a major osteoporotic fx and a 12.8% chance for the hips probability for fx in 10 years time. IMPRESSION: Osteoporosis (T Score less than -2.5). There is increased fracture risk and therapy is usually indicated based on age. Re-Screen 1-2 years. NOTE: T-SCORE=SD OF THE YOUNG ADULT MEAN.
== END | disposition home or self-care (01) ==
LOC: RADBDWWP 09:43
PROVIDERS: ATTEND Internal Medicine Hematology & Oncology
DX: C50.311 Malignant neoplasm of lower-inner quadrant of right female breast (principal); M81.0 Age-related osteoporosis without current pathological fracture; M85.89 Other specified disorders of bone density and structure, multiple sites; Z78.0 Asymptomatic menopausal state
CPT/HCPCS: 77080

== ENCOUNTER 2022-07-19 11:29 | Emergency (ER) | payer MEDICARE ==
[2022-07-19 11:45] VITALS: BP 147/75; PULSE 78; RESP 20; TEMP 98.3
[2022-07-19] MEDS ORDERED: HYDROcodone/APAP 5-325MG 1 EACH TAB PO STA (12:46)
--- NOTE | 2022-07-19 12:51 | ED ---
Fall HPI - General Chief Complaint: Fall Stated Complaint: fall on table Time Seen by Provider: 07/19/22 12:30 Source: patient, family Mode of arrival: wheelchair Limitations: no limitations - History of Present Illness Initial Comments: This is a pleasant nontoxic-appearing 76-year-old female with complaints of left anterior rib pain. Patient states that she tripped over a friend's dogs and landed on the side table 10 days ago. Has had pain since and is concerned for fracture. Denies any other injuries. No shortness of breath. She is taking ox ycodone for her arthritis with no relief. 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) Fall Witnessed: yes, by family Place Fall Occurred: home Loss of Consciousness: none Prolonged Down Time?: no Severity scale (1-10): 8 Context: tripped/slipped Associated Symptoms: headache - Related Data Home Medications Medication Instructions Recorded Confirmed LORazepam [Ativan] 0.5 mg PO TID PRN 10/19/14 05/16/20 DULoxetine HCL [Cymbalta] 60 mg PO HS 04/19/19 05/16/20 Omeprazole 20 mg PO DAILY 04/19/19 05/16/20 Raloxifene [Evista] 60 mg PO HS 04/19/19 05/16/20 metFORMIN HCL [Glucophage] 500 mg PO BID 04/19/19 05/16/20 predniSONE 4 mg PO DAILY 04/19/19 05/16/20 lisinopriL [Prinivil] 10 mg PO DAILY 05/09/20 05/16/20 Previous Rx's Medication Instructions Recorded Lidocaine 5% Patch [Lidoderm] 1 patch TOPICAL DAILY 14 Days #14 07/19/22 patch Allergies Allergy/AdvReac Type Severity Reaction Status Date / Time Penicillins Allergy Itching Verified 07/19/22 11:45 Review of Systems ROS Statement: Those systems with pertinent positive or pertinent negative responses have been documented in the HPI. ROS Other: All systems not noted in ROS Statement are negative. Past Medical History Past Medical History: Cancer, GERD/Reflux, Rheumatoid Arthritis (RA) Additional Past Medical History / Comment(s): "head tremors", Right Breast Cancer (Nov 2015) History of Any Multi-Drug Resistant Organisms: None Reported Past Surgical History: Hysterectomy Additional Past Surgical History / Comment(s): right breast lumpectomy 2016,left breast reduction 2016 skin cysts removed, Breast bx. Past Anesthesia/Blood Transfusion Reactions: No Reported Reaction Past Psychological History: Anxiety Smoking Status: Former smoker Past Alcohol Use History: None Reported Past Drug Use History: None Reported - Past Family History Brother(s) Family Medical History: Cancer General Exam Limitations: no limitations General appearance: alert, in no apparent distress Head exam: Present: atraumatic, normocephalic, normal inspection Eye exam: Present: normal appearance. Absent: scleral icterus, conjunctival injection, periorbital swelling Neck exam: Present: full ROM. Absent: tenderness, meningismus, lymphadenopathy Respiratory exam: Present: normal lung sounds bilaterally, chest wall tenderness (Left anterior under her breast). Absent: respiratory distress, accessory muscle use Cardiovascular Exam: Present: regular rate GI/Abdominal exam: Present: soft. Absent: distended, tenderness, guarding, rebound, rigid Extremities exam: Present: full ROM, normal capillary refill. Absent: tenderness, pedal edema, joint swelling, calf tenderness Back exam: Present: normal inspection, full ROM. Absent: tenderness, CVA tende rness (R), CVA tenderness (L), rash noted Neurological exam: Present: alert, oriented X3 Psychiatric exam: Present: normal affect, normal mood Skin exam: Present: warm, dry, normal color. Absent: cyanosis, diaphoretic, petechiae, pallor Course Vital Signs 07/19/22 11:42 Temperature 98.3 F Pulse Rate 78 Respiratory 20 Rate Blood Pressure 147/75 O2 Sat by Pulse 94 L Oximetry Medical Decision Making - Medical Decision Making On exam patient does have anterior chest wall pain over the left side ribs. No evidence of bruising or redness. Lungs sounds are clear to auscultation. No respiratory distress. No other injuries. Chest x-ray interpreted by me shows no evidence of focal consolidation, cardiac silhouette with a normal size. No evidence of rib fracture. Radiologist interpretation no acute cardiopulmonary disease or process. COPD changes. No acute osseous pathology. Patient was given a Lidoderm patch. She was directed to continue her previously prescribed pain medications which include [place]. She was given a prescription for Lidoderm patches. Directed to use incentive spirometry as provided. Follow- up with her primary care doctor. Was pt. sent in by a medical professional or institution (JONNY Seals, QUARRY EQUIPMENT OPERATOR, urgent care, hospital, or longterm...) When possible be specific @ -No Did you speak to anyone other than the patient for history (EMS, parent, family, police, friend...)? What history was obtained from this source @ -family at bedside and witnessed fall onto the table, no loss of consciousn ess or any other injuries Did you review nursing and triage notes (agree or disagree)? Why? @ -I reviewed and agree with nursing and triage notes Were old charts reviewed (outside hosp., previous admission, EMS record, old EKG, old radiological studies, urgent care reports/EKG's, longterm records)? Report findings @ -No old charts were reviewed Differential Diagnosis (chest pain, altered mental status, abdominal pain women, abdominal pain men, vaginal bleeding, weakness, fever, dyspnea, syncope, headache, dizziness, GI bleed, back pain, seizure, CVA, palpatations, mental health, musculoskeletal)? @ -Rib fracture, contusion, pneumothorax, pneumonia EKG interpreted by me (3pts min.). @ -n/a X-rays interpreted by me (1pt min.). @ -Yes as above CT interpreted by me (1pt min.). @ -None done U/S interpreted by me (1pt. min.). @ -None done What testing was considered but not performed or refused? (CT, X-rays, U/S, labs)? Why? @ -None What meds were considered but not given or refused? Why? @ -None Did you discuss the management of the patient with other professionals (professionals i.e. JONNY Seals, QUARRY EQUIPMENT OPERATOR, lab, RT, psych nurse, social problems specialist, admiralty lawyer, teacher, community development officer, watch caser)? Give summary @ -No Was smoking cessation discussed for >3mins.? @ -No Was critical care preformed (if so, how long)? @ -No Were there social determinants of health that impacted care today? How? (Homelessness, low income, unemployed, alcoholism, drug addiction, transportation, low edu. Level, literacy, decrease access to med. care, fpc, rehab)? @ -No Was there de-escalation of care discussed even if they declined (Discuss DNR or withdrawal of care, Hospice)? DNR status @ -No What co-morbidities impacted this encounter? (DM, HTN, Smoking, COPD, CAD, Cancer, CVA, ARF, Chemo, Hep., AIDS, mental health diagnosis, sleep apnea, morbid obesity)? @ -History of breast cancer, rheumatoid arthritis, GERD, anxiety Was patient admitted / discharged? Hospital course, mention meds given and route, prescriptions, significant lab abnormalities, going to OR and other pertinent info. @ -Discharged Undiagnosed new problem with uncertain prognosis? @ -No Drug Therapy requiring intensive monitoring for toxicity (Heparin, Nitro, Insulin, Cardizem)? @ -No Were any procedures done? @ -No Diagnosis/symptom? @ -Rib contusion Acute, or Chronic, or Acute on Chronic? @ -Acute Uncomplicated (without systemic symptoms) or Complicated (systemic symptoms)? @ -Uncomplicated Side effects of treatment? @ -No Exacerbation, Progression, or Severe Exacerbation? @ -No Poses a threat to life or bodily function? How? (Chest pain, [place], [place], pneumonia, PE, COPD, DKA, ARF, appy, cholecystitis, CVA, Diverticulitis, Homicidal, Suicidal, threat to staff... and all critical care pts) @ -No Disposition Clinical Impression: Fall, Rib pain on left side Disposition: HOME SELF-CARE Instructions (If sedation given, give patient instructions): Fall Prevention for Older Adults (ED), Rib Contusion (ED) Additional Instructions: Continue taking your previously prescribed pain medications. You can use the Lidoderm patches once a day 12 hours on 12 hours off. Use incentive spirometer as provided. Remember to take deep breaths and cough at least once an hour to prevent pneumonia. Follow-up with your primary care doctor on Thursday. Return to the emergency room with any new or concerning symptoms including difficulty breathing or fevers Prescriptions: Lidocaine 5% Patch [Lidoderm] 1 patch TOPICAL DAILY 14 Days #14 patch Is patient prescribed a controlled substance at d/c from ED?: No Referrals: Nieves Martin MD [Primary Care Provider] - 1-2 days Time of Disposition: 13:29
[2022-07-19] MEDS ORDERED: LIDOCAINE 5% PATCH TOPICAL SCH (13:00)
--- NOTE | 2022-07-19 13:24 | XR ---
EXAMINATION TYPE: XR chest 2V DATE OF EXAM: 07/19/2022 1:19 PM COMPARISON: Chest radiographs from 06/12/2017. TECHNIQUE: XR chest 2V Frontal and lateral views of the chest. CLINICAL INDICATION:Female, 76 years old with history of fall left anterior rib pain; FINDINGS: Lungs/Pleura: There is flattening of the diaphragm with increased lucency of the lungs. No evidence o f pneumothorax, pleural effusion or focal consolidation. Chronic senescent parenchymal change. Pulmonary vascularity: Unremarkable. Heart/mediastinum: Cardiomediastinal silhouette is unremarkable. Atherosclerotic calcifications are seen in the aorta. Musculoskeletal: No acute osseous pathology. IMPRESSION: 1. No acute cardiopulmonary disease process. 2. COPD changes.
== END 2022-07-19 14:35 | disposition home or self-care (01) ==
LOC: EC 11:29
DX: R07.81 Pleurodynia (principal); J44.9 Chronic obstructive pulmonary disease, unspecified; K21.9 Gastro-esophageal reflux disease without esophagitis; F41.9 Anxiety disorder, unspecified; Z87.891 Personal history of nicotine dependence; Z79.899 Other long term (current) drug therapy; Z88.0 Allergy status to penicillin; W01.119A Fall on same level from slipping, tripping and stumbling with subsequent striking against unspecified sharp object, initial encounter; Y92.009 Unspecified place in unspecified non-institutional (private) residence as the place of occurrence of the external cause
CPT/HCPCS: 71046; 99284

== ENCOUNTER 2022-08-24 18:50 | Emergency (ER) | payer MEDICARE ==
[2022-08-24 19:45] VITALS: RESP 16; TEMP 98.1
[2022-08-24] MEDS ORDERED: SODIUM CHLORIDE 0.9% 500 ML 500 ML IV STA (21:30)
[2022-08-24] MEDS ORDERED: HYDROmorphone 1 MG/ML 1 ML SYRINGE IVP STA (21:32)
[2022-08-24 22:42] LABS: ALT 10 U/L (4-34); AST 16 U/L (14-36); African American GFR (CKD) >90 (>60 ml/min/1.73 sqM); Albumin 3.1 g/dL (3.5-5.0); Alkaline Phosphatase 81 U/L (38-126); Anion Gap 12 mmol/L; Blood Urea Nitrogen 12 mg/dL (7-17); Carbon Dioxide 28 mmol/L (22-30); Chloride 95 mmol/L (98-107); Glucose 149 mg/dL (74-99); Non-African American GFR(CKD) 89 (>60 ml/min/1.73 sqM); Potassium 3.7 mmol/L (3.5-5.1); Sodium 135 mmol/L (137-145); Total Bilirubin 0.5 mg/dL (0.2-1.3); Total Protein 6.2 g/dL (6.3-8.2)
[2022-08-24 22:55] LABS: Basophils % (A) 1 %; Eosinophils # (A) 0.1 k/uL (0-0.7); Eosinophils % (A) 1 %; HCT 40.6 % (34.0-46.0); HGB 12.9 gm/dL (11.4-16.0); Hypochromasia Slight; Lymphocytes % (A) 12 %; MCH 25.8 pg (25.0-35.0); MCHC 31.8 g/dL (31.0-37.0); MCV 80.9 fL (80.0-100.0); Mean Platelet Volume 8.3; Monocytes # (A) 0.6 k/uL (0-1.0); Monocytes % (A) 7 %; Neutrophils # (A) 6.7 k/uL (1.3-7.7); Neutrophils % (A) 79 %; Platelet Count 373 k/uL (150-450); RBC 5.02 m/uL (3.80-5.40); RDW 15.3 % (11.5-15.5); WBC 8.5 k/uL (3.8-10.6)
[2022-08-24 23:05] LABS: C Reactive Protein 15.2 mg/dL (<1.0)
[2022-08-24] MEDS ORDERED: KETOROLAC 15 MG/ML 1 ML VIAL IVP STA (23:08)
[2022-08-24] MEDS ORDERED: methylPREDNISolone SOD SUCCI 125 MG/2 ML VIAL IV STA (23:10)
[2022-08-24 23:14] VITALS: BP 160/74; PULSE 70
--- NOTE | 2022-08-24 23:20 | ED ---
Extremity Problem HPI - General Chief complaint: Extremity Problem,Nontraumatic Stated complaint: pain Time Seen by Provider: 08/24/22 21:00 Source: patient, family Mode of arrival: ambulatory Limitations: physical limitation - History of Present Illness Initial comments: 76-year-old female presents to the emergency department reporting body pain. She has history of rheumatoid arthritis and states that her current flare has been going on for the past 3 weeks. states she can barely ambulate. She reports to most of her pain in her lower back and hips. She denies any fevers. She does not currently take any medications specific for her rheumatoid arthritis. Reports the following with several [facility] however never agreed to trying any medications. Her primary care physician did place her on some opiate pain medications but she states this has not been helping. She does have a history of breast cancer. Denies any bowel or bladder symptoms. Recently was treated for UTI with antibiotics. No headaches or visual changes. Minimal hand wrist pain. No other alleviating, precipitating or modifying factors - Related Data Home Medications Medication Instructions Recorded Confirmed LORazepam [Ativan] 0.5 mg PO TID PRN 10/19/14 05/16/20 DULoxetine HCL [Cymbalta] 60 mg PO HS 04/19/19 05/16/20 Omeprazole 20 mg PO DAILY 04/19/19 05/16/20 Raloxifene [Evista] 60 mg PO HS 04/19/19 05/16/20 metFORMIN HCL [Glucophage] 500 mg PO BID 04/19/19 05/16/20 predniSONE 4 mg PO DAILY 04/19/19 05/16/20 lisinopriL [Prinivil] 10 mg PO DAILY 05/09/20 05/16/20 Previous Rx's Medication Instructions Recorded Lidocaine 5% Patch [Lidoderm] 1 patch TOPICAL DAILY 14 Days #14 07/19/22 patch Cefpodoxime Proxetil [Vantin] 200 mg PO Q12HR 10 Days #20 tab 08/11/22 Ibuprofen [Motrin] 600 mg PO Q8HR PRN #30 tab 08/25/22 predniSONE [Deltasone] 20 mg PO BID #10 tab 08/25/22 Allergies Allergy/AdvReac Type Severity Reaction Status Date / Time Penicillins Allergy Itching Verified 08/24/22 19:40 Review of Systems ROS Statement: Those systems with pertinent positive or pertinent negative responses have been documented in the HPI. ROS Other: All systems not noted in ROS Statement are negative. Past Medical History Past Medical History: Cancer, GERD/Reflux, Rheumatoid Arthritis (RA) Additional Past Medical History / Comment(s): "head tremors", Right Breast Cancer (Nov 2015) History of Any Multi-Drug Resistant Organisms: None Reported Past Surgical History: Hysterectomy Additional Past Surgical History / Comment(s): right breast lumpectomy 2015,left breast reduction 2015 skin cysts removed, Breast bx. Past Anesthesia/Blood Transfusion Reactions: No Reported Reaction Past Psychological History: Anxiety Smoking Status: Former smoker Past Alcohol Use History: None Reported Past Drug Use History: None Reported - Past Family History Brother(s) Family Medical History: Cancer General Exam Limitations: physical limitation General appearance: alert, anxious, in distress Head exam: Present: atraumatic, normocephalic, normal inspection Eye exam: Present: normal appearance, PERRL, EOMI. Absent: scleral icterus, conjunctival injection, periorbital swelling ENT exam: Present: normal exam, mucous membranes moist Neck exam: Present: normal inspection. Absent: tenderness, meningismus, lymphadenopathy Respiratory exam: Present: normal lung sounds bilaterally. Absent: respiratory distress, wheezes, rales, rhonchi, stridor Cardiovascular Exam: Present: regular rate, normal rhythm, normal heart sounds. Absent: systolic murmur, diastolic murmur, rubs, gallop, clicks GI/Abdominal exam: Present: soft, normal bowel sounds. Absent: distended, tenderness, guarding, rebound, rigid Extremities exam: Present: full ROM, normal capillary refill, other (chronic def ormity of hands). Absent: tenderness, pedal edema, joint swelling, calf tenderness Back exam: Present: normal inspection Neurological exam: Present: alert, oriented X3, CN II-XII intact Psychiatric exam: Present: normal affect, normal mood Skin exam: Present: warm, dry, intact, normal color. Absent: rash Course Vital Signs 08/24/22 08/24/22 19:40 23:00 Temperature 98.1 F Pulse Rate 78 70 Respiratory 16 16 Rate Blood Pressure 131/72 160/74 O2 Sat by Pulse 98 Oximetry Medical Decision Making - Medical Decision Making Was pt. sent in by a medical professional or institution (, PA, [facility], urgent care, hospital, or retirement...) When possible be specific @ -No Did you speak to anyone other than the patient for history (EMS, parent, family, police, friend...)? What history was obtained from this source @ -Patients provides symptoms and details of providers that she has already seen for this condition Did you review nursing and triage notes (agree or disagree)? Why? @ -I reviewed and agree with nursing and triage notes Were old charts reviewed (outside hosp., previous admission, EMS record, old EKG, old radiological studies, urgent care reports/EKG's, retirement records)? Report findings @ -No old charts were reviewed Differential Diagnosis (chest pain, altered mental status, abdominal pain women, abdominal pain men, vaginal bleeding, weakness, fever, dyspnea, syncope, he adache, dizziness, GI bleed, back pain, seizure, CVA, palpatations, mental health, musculoskeletal)? @ -RA flare, lupus, osteoarthritis, chronic pain EKG interpreted by me (3pts min.). @ -Not done X-rays interpreted by me (1pt min.). @ -yes - advanced arthritis CT interpreted by me (1pt min.). @ -None done U/S interpreted by me (1pt. min.). @ -None done What testing was considered but not performed or refused? (CT, X-rays, U/S, labs)? Why? @ -None What meds were considered but not given or refused? Why? @ -None Did you discuss the management of the patient with other professionals (professionals i.e. , PA, [facility], lab, RT, psych nurse, social welfare administrator, bone crusher, teacher, freedom of information officer, family service caseworker)? Give summary @ -No Was smoking cessation discussed for >3mins.? @ -No Was critical care preformed (if so, how long)? @ -No Were there social determinants of health that impacted care today? How? (Homelessness, low income, unemployed, alcoholism, drug addiction, transportation, low edu. Level, literacy, decrease access to med. care, usp, rehab)? @ -No Was there de-escalation of care discussed even if they declined (Discuss DNR or withdrawal of care, Hospice)? DNR status @ -No What co-morbidities impacted this encounter? (DM, HTN, Smoking, COPD, CAD, Cancer, CVA, ARF, Chemo, Hep., AIDS, mental health diagnosis, sleep apnea, morbid obesity)? @ -RA Was patient admitted / discharged? Hospital course, mention meds given and route, prescriptions, significant lab abnormalities, going to OR and other pertinent info. @ -Upon arrival patient is placed into room 19. A thorough history and physical exam is performed. IV access established laboratory studies were conducted. Patient is given 1 mg of Dilaudid. Laboratory studies demonstrated an ESR of 72. CRP of 15.2. She is sent over for an x-ray of her lumbar spine as well as her pelvis because of her history of breast cancer. This demonstrates degenerative disc disease and osteopenia. No signs of suspicious masses. Patient reevaluated and continues to have pain. She is given a dose of Toradol and Solu-Medrol. Did discuss treatment options with the patient. Patient will be discharged home at this time. She is given follow-up information for rheumatology. She will be placed on 5 days of prednisone. May continue taking her oxycodone. I did recommend anti-inflammatories however once the steroids are finished. Return for any new or worsening symptoms. Patient was agreeable with plan and discharged home stable condition Undiagnosed new problem with uncertain prognosis? @ -No Drug Therapy requiring intensive monitoring for toxicity (Heparin, Nitro, Insulin, Cardizem)? @ -No Were any procedures done? @ -No Diagnosis/symptom? @ -acute myalgias, back pain, ra flare Acute, or Chronic, or Acute on Chronic? @ -acute on chronic Uncomplicated (without systemic symptoms) or Complicated (systemic symptoms)? @ -complicated Side effects of treatment? @ -allergic reaction, hallucinations, nausea and vomiting Exacerbation, Progression, or Severe Exacerbation? @ -yes Poses a threat to life or bodily function? How? (Chest pain, USA, ID, pneumonia, PE, COPD, DKA, ARF, appy, cholecystitis, CVA, Diverticulitis, Homicidal, Suicidal, threat to staff... and all critical care pts) @ -No - Lab Data Result diagrams: 08/24/22 21:57 08/24/22 21:57 Lab Results 08/24/22 08/24/22 Range/Units 21:57 21:57 WBC 8.5 (3.8-10.6) k/uL RBC 5.02 (3.80-5.40) m/uL Hgb 12.9 (11.4-16.0) gm/dL Hct 40.6 (34.0-46.0) % MCV 80.9 (80.0-100.0) fL MCH 25.8 (25.0-35.0) pg MCHC 31.8 (31.0-37.0) g/dL RDW 15.3 (11.5-15.5) % Plt Count 373 (150-450) k/uL MPV 8.3 Neutrophils % 79 % Lymphocytes % 12 % Monocytes % 7 % Eosinophils % 1 % Basophils % 1 % Neutrophils # 6.7 (1.3-7.7) k/uL Lymphocytes # 1.0 (1.0-4.8) k/uL Monocytes # 0.6 (0-1.0) k/uL Eosinophils # 0.1 (0-0.7) k/uL Basophils # 0.0 (0-0.2) k/uL Hypochromasia Slight ESR 72 H (0-20) mm/hr Sodium 135 L (137-145) mmol/L Potassium 3.7 (3.5-5.1) mmol/L Chloride 95 L (98-107) mmol/L Carbon Dioxide 28 (22-30) mmol/L Anion Gap 12 mmol/L BUN 12 (7-17) mg/dL Creatinine 0.59 (0.52-1.04) mg/dL Est GFR (CKD-EPI)AfAm >90 (>60 ml/min/1.73 sqM) Est GFR (CKD-EPI)NonAf 89 (>60 ml/min/1.73 sqM) Glucose 149 H (74-99) mg/dL Calcium 9.0 (8.4-10.2) mg/dL Total Bilirubin 0.5 (0.2-1.3) mg/dL AST 16 (14-36) U/L ALT 10 (4-34) U/L Alkaline Phosphatase 81 (38-126) U/L C-Reactive Protein 15.2 H (<1.0) mg/dL Total Protein 6.2 L (6.3-8.2) g/dL Albumin 3.1 L (3.5-5.0) g/dL Disposition Clinical Impression: Hip pain, Rheumatoid arthritis flare, Back pain Disposition: HOME SELF-CARE Condition: Stable Instructions (If sedation given, give patient instructions): Rheumatoid Arthritis (ED) Additional Instructions: Please follow-up with the [facility] for further management of your rheumatoid arthritis. See Dr. Martin in 1 week and return for any new or worsening symptoms. Take the steroids for the next 5 days. When those are gone, you may start taking the Motrin. Prescriptions: predniSONE [Deltasone] 20 mg PO BID #10 tab Ibuprofen [Motrin] 600 mg PO Q8HR PRN #30 tab PRN Reason: Pain Is patient prescribed a controlled substance at d/c from ED?: No Referrals: Nieves Martin MD [Primary Care Provider] - 1-2 days Olu Justice MD [REFERRING] - 1-2 days Time of Disposition: 00:06
[2022-08-24 23:25] LABS: Erythrocyte Sedimentation Rate 72 mm/hr (0-20)
--- NOTE | 2022-08-24 23:35 | XR ---
EXAM: XR Lumbosacral Spine, 2 or 3 Views CLINICAL HISTORY: ITS.REASON XR Reason: pain, hx breast cancer TECHNIQUE: Frontal and lateral views of the lumbar spine and sacrum. COMPARISON: 06/12/2022. FINDINGS: Vertebrae: There is osteopenia. The vertebral bodies and the pedicles are unremarkable. No acute fracture. Normal alignment. Sacrum/coccyx: Mild to moderate osteoarthritic changes about the sacrum nectars. No acute fracture. Disc spaces: Mild to moderate degenerative disc disease of the lumbar spine. Soft tissues: Unremarkable. Vasculature: Atherosclerotic disease. Other findings: A 0.3 cm nonobstructing left renal calculus. IMPRESSION: 1. Osteopenia. 2. Mild to moderate degenerative disc disease. 3. Levoscoliosis. 4. Atherosclerotic disease.
--- NOTE | 2022-08-24 23:36 | XR ---
EXAM: XR Pelvis, 1 or 2 Views CLINICAL HISTORY: ITS.REASON XR Reason: pain, hx breast cancer TECHNIQUE: Frontal view of the pelvis. COMPARISON: No previous studies. FINDINGS: Bones/joints: Moderate to severe osteoarthritic changes about the left hip joint. Right hip joint is intact. Moderate osteoarthritic changes about the sacral iliac joints. Lower lumbar spine is unremarkable. No acute fracture. No dislocation. Soft tissues: Unremarkable. IMPRESSION: 1. Moderate to severe osteoarthritic changes about the left hip joint. 2. No acute fracture or dislocation.
== END 2022-08-25 00:44 | disposition home or self-care (01) ==
LOC: EC 18:50
DX: M06.9 Rheumatoid arthritis, unspecified (principal); M54.50 Low back pain, unspecified; M25.559 Pain in unspecified hip; K21.9 Gastro-esophageal reflux disease without esophagitis; F41.9 Anxiety disorder, unspecified; Z87.891 Personal history of nicotine dependence; Z88.0 Allergy status to penicillin; Z79.84 Long term (current) use of oral hypoglycemic drugs; Z79.899 Other long term (current) drug therapy
CPT/HCPCS: 36415; 80053; 85652; 85025; 86140; 72100; 72170; 99284; 96374; 96375 ×2; 96361; J2930; J1170; J1885

== ENCOUNTER → 2022-09-19 | Outpatient (CLI) | payer MEDICARE ==
--- NOTE | 2022-09-22 09:30 | MM ---
Reason for Exam: Screening (asymptomatic). Last mammogram was performed 1 year(s) and 2 month(s) ago. Patient History: Menarche at age 11. First Full-Term at age 20. Left ovary removed at age 35. Right ovary removed at age 35. Hysterectomy at age 35. Postmenopausal. Breast cancer, right, age 70. Previous chest radiation therapy at age 70. Previous chemotherapy at age 70. Patient used Hormonal Contraceptives for 10 years. 2017, Bilateral Reduction. 04/08/2017, Benign Core Biopsy on the left side. 11/15/2015, Malignant Core Biopsy on the right side. 11/15/2015, Malignant Core Biopsy on the right side. 2016, Chemotherapy. 2016, Radiation Therapy. Maternal aunt had breast cancer, age 70. Prior Study Comparison: 06/13/2019 Bilateral Diagnostic Mammogram, [facility]. 07/03/2020 Bilateral Screening Mammogram, [facility]. 07/25/2021 Bilateral Screening Mammogram, [facility]. Tissue Density: The breast tissue is heterogeneously dense. This may lower the sensitivity of mammography. Findings: Analyzed By CAD. There is no suspicious group of microcalcifications or new suspicious mass in either breast. Traumatic oil cyst left breast with benign calcifications. Overall Assessment: Benign, BI-RAD 2 Management: Screening Mammogram of both breasts in 1 year. . Patient should continue monthly self-breast exams. A clinical breast exam by your physician is recommended on an annual basis. This exam should not preclude additional follow-up of suspicious palpable abnormalities. Note on Esme scores and lifetime risk: 1. A Esme score greater than 3% is considered moderate risk. If this is the case, consider specialist referral to assess eligibility for a risk reducing agent. 2. If overall lifetime risk for the development of breast cancer is 20% or higher, the patient may qualify for future screening with alternating mammogram and breast MRI. Electronically signed and approved by: Félix Burris M.D. Radiologis
== END | disposition home or self-care (01) ==
LOC: RADMAMWWP 15:11
PROVIDERS: ATTEND Internal Medicine Hematology & Oncology
DX: Z12.31 Encounter for screening mammogram for malignant neoplasm of breast (principal); Z78.0 Asymptomatic menopausal state; Z80.3 Family history of malignant neoplasm of breast
CPT/HCPCS: 77063; 77067

== ENCOUNTER 2023-05-20 05:50 | Day surgery (SDC) | payer MEDICARE ==
[2023-05-18 11:34] VITALS: BMI 23.3
[2023-05-20 06:42] LABS: Glucose,Whole Blood 145 mg/dL (70-110)
[2023-05-20] MEDS: LACTATED RINGERS 1,000 ML IV SCH (06:42)
[2023-05-20] MEDS ORDERED: PROPOFOL 10 MG/ML 20 ML VIAL IV ONE (06:58)
[2023-05-20] MEDS ORDERED: LIDOCAINE 2% (PF) 20 MG/ML 5 ML VIAL ONE (06:58)
--- NOTE | 2023-05-20 07:44 | P.PCN ---
Date of Procedure: 05/20/23 Procedure(s) Performed: Brief history: Patient is a pleasant 77-year-old white female scheduled for an elective upper endoscopy as well as colonoscopy as a part of evaluation of I deficiency anemia. Procedure performed: Esophagogastroduodenoscopy biopsy Colonoscopy Preoperative diagnosis: Iron deficiency anemia Anesthesia: MAC Procedure: After informed consent was obtained from the patient was brought into the endoscopy unit and IV sedation was administered by anesthesia under continuous monitoring. Initially upper endoscopy was done. The Olympus GF 160 video endoscope was inserted inserted into the mouth and esophagus intubated without any difficulty and was gradually advanced into the stomach and duodenum and carefully examined. The bulb and second part of the duodenum appeared normal. The scope was then withdrawn into the stomach adequately insufflated with air and upon careful examination the antrum had mild gastritis and biopsies were done from this area. Mucosa of the body, cardia and fundus appeared normal. The scope was then withdrawn into the esophagus. The GE junction was located at 40 cm to the incisors. Small hiatal hernia noted. There was a short segment of White's esophagus extending 3 mm proximal to the cecum was biopsied. Rest of the esophagus appeared normal. Patient tolerated the procedure well. At this time the patient continued to remain sedation. Initial digital rectal examination was normal. Olympus CF 160 video pediatric colonoscope was then inserted into the rectum and gradually advanced to the sigmoid: Further advancement was not possible despite multiple attempts. At this time and upper scope was used and with gentle manipulation advance the scope into the cecum without any difficulty. Careful examination was performed as the scope was gradually being withdrawn. The prep was excellent. The cecum, ascending colon, transverse colon, descending colon, sigmoid colon and rectum appeared normal. Diverticulosis. Retroflexion was performed in the rectum and no lesions were noted. Patient tolerated the procedure well. Impression: 1. Upper endoscopy revealed antral gastritis, small hiatal hernia and short segment White's esophagus 2. Colonoscopy revealed scattered sigmoid diverticulosis but no evidence of colorectal neoplasia Recommendations: Findings of this examination were discussed with the patient as well as her family. She was advised to follow with the biopsy results. Monitor CBC periodically. If she has persistent iron deficiency anemia she may be a candidate for a small bowel capsule endoscopy in the future.
[2023-05-20 08:00] VITALS: RESP 14; TEMP 97
[2023-05-20 08:11] LABS: Glucose,Whole Blood 176 mg/dL (70-110)
[2023-05-20 08:32] VITALS: BP 114/59; PULSE 64
== END 2023-05-20 08:36 | disposition home or self-care (01) ==
LOC: ORWHC2ENDO 05:50
PROVIDERS: ATTEND Internal Medicine Gastroenterology
DX: K29.50 Unspecified chronic gastritis without bleeding (principal); K44.9 Diaphragmatic hernia without obstruction or gangrene; K22.70 Barrett's esophagus without dysplasia; D50.9 Iron deficiency anemia, unspecified; K57.30 Diverticulosis of large intestine without perforation or abscess without bleeding; M06.9 Rheumatoid arthritis, unspecified; E78.5 Hyperlipidemia, unspecified; E11.9 Type 2 diabetes mellitus without complications; Z87.891 Personal history of nicotine dependence; Z79.899 Other long term (current) drug therapy; Z88.0 Allergy status to penicillin; Z98.890 Other specified postprocedural states; Z85.3 Personal history of malignant neoplasm of breast; Z92.21 Personal history of antineoplastic chemotherapy
CPT/HCPCS: 88305; 45378; 43239; J2704; J2001

== ENCOUNTER → 2023-12-31 | Outpatient (CLI) | payer MEDICARE ==
--- NOTE | 2024-01-03 21:43 | MM ---
Reason for Exam: Screening (asymptomatic). Last mammogram was performed 1 year(s) and 3 month(s) ago. Patient History: Menarche at age 11. First Full-Term at age 20. Left ovary removed at age 35. Right ovary removed at age 35. Hysterectomy at age 35. Postmenopausal. Breast cancer, right, age 70. Previous chest radiation therapy at age 70. Previous chemotherapy at age 70. Patient used Hormonal Contraceptives for 10 years. 2017, Bilateral Reduction. 04/08/2017, Benign Core Biopsy on the left side. 11/15/2015, Malignant Core Biopsy on the right side. 11/15/2015, Malignant Core Biopsy on the right side. 2016, Chemotherapy. 2016, Radiation Therapy. Maternal aunt had breast cancer, age 70. Prior Study Comparison: 07/03/2020 Bilateral Screening Mammogram, [facility]. 07/25/2021 Bilateral Screening Mammogram, [facility]. 09/19/2022 Bilateral MG 3D screening mammo w/cad, [facility]. Tissue Density: There are scattered areas of fibroglandular density. Findings: Analyzed By CAD. Pattern is stable. Chronic changes noted through the left breast. Coarse calcifications are present. No significant interval change. No suspicious groups of microcalcifications, spiculated or lobular masses, architectural distortion or other secondary signs of malignancy are mammographically apparent. Overall Assessment: Benign, BI-RAD 2 Management: Screening Mammogram of both breasts in 1 year. A negative mammogram report should not preclude additional follow up of suspicious palpable abnormalities. Patient should continue monthly self breast exam. A clinical breast exam by your physician is recommended on an annual basis and results should be correlated with mammographic findings. Note on Esme scores and lifetime risk: 1. A Esme score greater than 3% is considered moderate risk. If this is the case, consider specialist referral to assess eligibility for a risk reducing agent. 2. If overall lifetime risk for the development of breast cancer is 20% or higher, the patient may qualify for future screening with alternating mammogram and breast MRI. [facility], , 01/03/2024 9:40 PM. Electronically signed and approved by: Addison Samayoa D.O. Radiologis
== END | disposition home or self-care (01) ==
LOC: RADMAMWWP 12:49
PROVIDERS: ATTEND Internal Medicine Hematology & Oncology
DX: Z12.31 Encounter for screening mammogram for malignant neoplasm of breast
CPT/HCPCS: 77063; 77067

== ENCOUNTER 2024-05-16 04:42 | Inpatient (IN) | payer MEDICARE ==
[2024-05-16 04:50] LABS: Glucose,Whole Blood 128 mg/dL (70-110)
[2024-05-16] MEDS: HYDROmorphone 0.5 MG/0.5 ML SYRINGE IVP STA ×2 (05:13→19:19)
--- NOTE | 2024-05-16 06:09 | XR ---
EXAM: XR Lumbosacral Spine, 2 or 3 Views CLINICAL HISTORY: ITS.REASON XR Reason: fall injury TECHNIQUE: Frontal and lateral views of the lumbar spine and sacrum. COMPARISON: No relevant prior studies available. FINDINGS: Vertebrae: Diffuse endplate hypertrophy. Facet hypertrophy is seen at L2-S1. No acute fracture. Normal alignment. Sacrum/coccyx: Unremarkable as visualized. No acute fracture. Disc spaces: See above. Soft tissues: Unremarkable. Vasculature: Calcifications overlie the aortic shadow. IMPRESSION: Multilevel degenerative change. No definitive fracture.
[2024-05-16] MEDS ORDERED: MAG HYDROX/AL HYDROX/SIMETH 30 ML CUP PO PRN (06:10)
[2024-05-16] MEDS ORDERED: ACETAMINOPHEN TAB 325 MG TAB PO PRN (06:10)
[2024-05-16] MEDS ORDERED: NALOXONE 0.4 MG/ML 1 ML VIAL IV PRN ×2 (06:10→18:49)
--- NOTE | 2024-05-16 06:10 | XR ---
EXAM: XR Right Hip With Pelvis When Performed, 2 or 3 Views CLINICAL HISTORY: ITS.REASON XR Reason: fall injury TECHNIQUE: Two or three views of the right hip with pelvis when performed. COMPARISON: Comminuted intertrochanteric fracture is visualized to the right femur. FINDINGS: Bones/joints: Degenerative changes are seen within the spine and hips. No acute fracture. No dislocation of the femoral head. Soft tissues: Unremarkable. IMPRESSION: Comminuted right femoral fracture.
--- NOTE | 2024-05-16 06:17 | XR ---
EXAM: XR Chest, 1 View CLINICAL HISTORY: ITS.REASON XR Reason: FALL TECHNIQUE: Frontal view of the chest. COMPARISON: No relevant prior studies available. FINDINGS: Lungs: Chronic lung markings are seen bilaterally. No consolidation. Pleural space: Unremarkable. No pneumothorax. Heart: Mild enlargement of the cardiac silhouette. Mediastinum: Unremarkable. Normal mediastinal contour. Bones/joints: Degenerative changes are seen in the spine and shoulders. No acute fracture. Vasculature: Calcifications overlie the aorta. IMPRESSION: No acute findings in the chest.
--- NOTE | 2024-05-16 06:21 | ED ---
Fall HPI - General Chief Complaint: Fall Stated Complaint: fall Time Seen by Provider: 05/16/24 04:48 Source: EMS Mode of arrival: EMS - History of Present Illness Initial Comments: This patient is a 78-year-old woman with history of breast cancer, who presents for evaluation after having had ground-level fall. The patient had gotten up to use the bathroom. When the patient was in the bathroom she stood up, lost her balance and fell backward striking her back. She has pain to the lumbar back area and to the right hip. She was not able to stand. EMS was called and trans ported the patient. They report that patient had shortening of the right leg. Patient denies head or neck injury or pain. No chest, abdomen or other extremity pain. MD Complaint: fall Onset/Timin -: hour(s) Fall From: standing When Fall Occurred: just prior to arrival Fall Witnessed: no Place Fall Occurred: home Loss of Consciousness: none Prolonged Down Time?: no Location: back Location - Extremities: Right: Thigh Severity: severe Quality: sharp Context: tripped/slipped Associated Symptoms: unable to walk - Related Data Home Medications Medication Instructions Recorded Confirmed DULoxetine HCL [Cymbalta] 60 mg PO BID 04/19/19 05/16/24 Omeprazole 20 mg PO BID 04/19/19 05/16/24 metFORMIN HCL [Glucophage] 1,000 mg PO BID 04/19/19 05/16/24 LORazepam [Ativan] 0.5 mg PO TID 05/18/23 05/16/24 ARIPiprazole [Abilify] 2 mg PO DAILY 05/16/24 05/16/24 Insulin Glargine/Lixisenatide 15 units SQ DAILY 05/16/24 05/16/24 [[place] 100 Unit-33 Mcg/ml Pen] lisinopriL [Zestril] 5 mg PO DAILY 05/16/24 05/16/24 predniSONE 10 mg PO DAILY 05/16/24 05/16/24 Previous Rx's Medication Instructions Recorded Aspirin 81 mg PO BID #60 tab 05/18/24 HYDROcodone/APAP 10-325MG [[place] 1 each PO Q6H PRN #28 tab 05/18/24 10] Sennosides-Docusate Sodium 1 tab PO BID PRN #60 tablet 05/18/24 [Senokot-S] Allergies Allergy/AdvReac Type Severity Reaction Status Date / Time Penicillins Allergy Itching Verified 05/16/24 11:16 Review of Systems ROS Statement: Those systems with pertinent positive or pertinent negative responses have been documented in the HPI. ROS Other: All systems not noted in ROS Statement are negative. Constitutional: Denies: fever, chills Respiratory: Denies: cough, dyspnea Cardiovascular: Denies: chest pain, palpitations, dyspnea on exertion Gastrointestinal: Denies: abdominal pain, nausea, vomiting Genitourinary: Denies: dysuria, hematuria Musculoskeletal: Reports: as per HPI, back pain, arthralgia Skin: Denies: rash Neurological: Denies: headache, weakness, numbness Past Medical History Past Medical History: Cancer, Diabetes Mellitus, GERD/Reflux, Hyperlipidemia, Rheumatoid Arthritis (RA) Additional Past Medical History / Comment(s): anemia,fatigue, has followed w/ Dr Mello in the past with prior iron transfusion, "head tremors", Rt Right Breast Cancer (Nov 2015)-received chemo and radiation. daily steroid History of Any Multi-Drug Resistant Organisms: None Reported Past Surgical History: Hysterectomy Additional Past Surgical History / Comment(s): right breast lumpectomy 2015,left breast reduction 2016 skin cysts removed, Breast bx. Past Anesthesia/Blood Transfusion Reactions: No Reported Reaction Additional Past Anesthesia/Blood Transfusion Reaction / Comment(s): iron transfusions in past no blood transfusions Past Psychological History: Anxiety Smoking Status: Former smoker - Past Family History Brother(s) Family Medical History: Cancer Additional Family Medical History / Comment(s): w/ bladder CA General Exam Limitations: no limitations General appearance: alert, in no apparent distress Head exam: Present: atraumatic, normocephalic Eye exam: Present: normal appearance. Absent: scleral icterus, conjunctival injection Neck exam: Present: normal inspection, full ROM. Absent: tenderness Respiratory exam: Present: normal lung sounds bilaterally. Absent: respiratory distress, wheezes, rales, rhonchi, stridor, chest wall tenderness, accessory muscle use Cardiovascular Exam: Present: regular rate, normal rhythm, normal heart sounds. Absent: systolic murmur, diastolic murmur, rubs, gallop GI/Abdominal exam: Present: soft. Absent: distended, tenderness, guarding, rebound, rigid, mass Extremities exam: Present: normal capillary refill. Absent: pedal edema, calf tenderness Right Hip exam: Present: tenderness, external rotation, shortening. Absent: full ROM Back exam: Present: normal inspection, paraspinal tenderness, vertebral tenderness. Absent: CVA tenderness (R), CVA tenderness (L) Course Vital Signs 05/16/24 05/16/24 05/16/24 04:43 06:05 07:28 Temperature 98.1 F Pulse Rate 89 80 98 Respiratory 20 16 20 Rate Blood Pressure 197/88 142/71 143/95 O2 Sat by Pulse 94 L 93 L 95 Oximetry 05/16/24 05/16/24 05/16/24 08:14 10:33 13:16 Temperature Pulse Rate 81 96 87 Respiratory 14 20 18 Rate Blood Pressure 120/74 133/79 97/87 O2 Sat by Pulse 95 94 L 93 L Oximetry 05/16/24 14:59 Temperature Pulse Rate 82 Respiratory 18 Rate Blood Pressure 140/86 O2 Sat by Pulse 94 L Oximetry Medical Decision Making - Medical Decision Making The patient had hip and pelvis x-ray that I interpreted to show acute intertrochanteric hip fracture. The patient had lumbar spine x-ray that I interpreted as negative for acute fracture The patient had chest x-ray as part of presurgical clearance that I interpreted as negative for acute infiltrate, pneumothorax, congestive heart failure Was pt. sent in by a medical professional or institution ([facility], [facility], urgent care, hospital, or penitentiary...) When possible be specific @ -[No] Did you speak to anyone other than the patient for history (EMS, parent, family, police, friend...)? What history was obtained from this source @ -[No] Did you review nursing and triage notes (agree or disagree)? Why? @ -[I reviewed and agree with nursing and triage notes] Were old charts reviewed (outside hosp., previous admission, EMS record, old EKG, old radiological studies, urgent care reports/EKG's, penitentiary records)? Report findings @ -[No old charts were reviewed] Differential Diagnosis (chest pain, altered mental status, abdominal pain women, abdominal pain men, vaginal bleeding, weakness, fever, dyspnea, syncope, headache, dizziness, GI bleed, back pain, seizure, CVA, palpatations, mental health, musculoskeletal)? @ -[Differential Musculoskeletal Muscular strain, contusion, ligament sprain, fracture, arthritis, septic arthritis, bursitis, cellulitis, muscle spasm, nerve compression, DVT, arterial occlusion, herpes zoster, electrolyte abnormality, tumor.... This is not meant to be in all inclusive list EKG interpreted by me (3pts min.). @ -[I interpreted as above] X-rays interpreted by me (1pt min.). @ -I interpreted as above CT interpreted by me (1pt min.). @ -[None done] U/S interpreted by me (1pt. min.). @ -[None done] What testing was considered but not performed or refused? (CT, X-rays, U/S, labs)? Why? @ -[None] What meds were considered but not given or refused? Why? @ -[None] Did you discuss the management of the patient with other professionals (professionals i.e. , PA, [facility], lab, RT, psych nurse, delinquency prevention social worker, technical services assistant, teacher, network security officer, cyanide case hardener)? Give summary @ -[I discussed the case with admitting physician, treatment recommendations are incorporated also discussed case with the medical investigator who will see the patient as part of presurgical clearance. Was smoking cessation discussed for >3mins.? @ -[No] Was critical care preformed (if so, how long)? @ -[No] Were there social determinants of health that impacted care today? How? (Homelessness, low income, unemployed, alcoholism, drug addiction, transportation, low edu. Level, literacy, decrease access to med. care, [facility], rehab)? @ -[No] Was there de-escalation of care discussed even if they declined (Discuss DNR or withdrawal of care, Hospice)? DNR status @ -[No] What co-morbidities impacted this encounter? (DM, HTN, Smoking, COPD, CAD, Cancer, CVA, ARF, Chemo, Hep., AIDS, mental health diagnosis, sleep apnea, morbid obesity)? @ -[None] Was patient admitted / discharged? Hospital course, mention meds given and route, prescriptions, significant lab abnormalities, going to OR and other pertinent info. @ -[Patient is 78-year-old woman who had fallen and is found to have intertro chanteric hip fracture. Case discussed with the orthopedic surgeon who will admit the patient and then also discussed with the patient's java front end web developer who will help in performing presurgical clearance. Undiagnosed new problem with uncertain prognosis? @ -[No] Drug Therapy requiring intensive monitoring for toxicity (Heparin, Nitro, Insulin, Cardizem)? @ -[No] Were any procedures done? @ -[No] Diagnosis/symptom? @ -[Acute intertrochanteric hip fracture Acute, or Chronic, or Acute on Chronic? @ -[Acute Uncomplicated (without systemic symptoms) or Complicated (systemic symptoms)? @ -[Uncomplicated Side effects of treatment? @ -[No] Exacerbation, Progression, or Severe Exacerbation? @ -[No] Poses a threat to life or bodily function? How? (Chest pain, [place], [place], pneumonia, PE, COPD, DKA, ARF, appy, cholecystitis, CVA, Diverticulitis, Homicidal, Suicidal, threat to staff... and all critical care pts) @ -[Yes require surgical consultation for patient to return to ambulation All treatments are based on ideal body weight as in ED triage - Lab Data Result diagrams: 05/18/24 06:57 05/22/24 02:42 Lab Results 05/16/24 05/16/24 05/16/24 Range/Units 04:47 04:50 04:50 WBC 13.2 H (3.8-10.6) k/uL RBC 4.65 (3.80-5.40) m/uL Hgb 12.6 (11.4-16.0) gm/dL Hct 40.3 (34.0-46.0) % MCV 86.6 (80.0-100.0) fL MCH 27.0 (25.0-35.0) pg MCHC 31.2 (31.0-37.0) g/dL RDW 15.4 (11.5-15.5) % Plt Count 277 (150-450) k/uL MPV 8.3 Neutrophils % 75 % Lymphocytes % 16 % Monocytes % 7 % Eosinophils % 1 % Basophils % 1 % Neutrophils # 9.8 H (1.3-7.7) k/uL Lymphocytes # 2.1 (1.0-4.8) k/uL Monocytes # 0.9 (0-1.0) k/uL Eosinophils # 0.1 (0-0.7) k/uL Basophils # 0.1 (0-0.2) k/uL Hypochromasia Slight PT 11.2 (10.0-12.5) sec INR 1.0 (<1.2) APTT 24.1 (22.0-30.0) sec Sodium (137-145) mmol/L Potassium (3.5-5.1) mmol/L Chloride (98-107) mmol/L Carbon Dioxide (22-30) mmol/L Anion Gap mmol/L BUN (7-17) mg/dL Creatinine (0.52-1.04) mg/dL Est GFR (CKD-EPI)AfAm (>60 ml/min/1.73 sqM) Est GFR (CKD-EPI)NonAf (>60 ml/min/1.73 sqM) Glucose (74-99) mg/dL POC Glucose (mg/dL) 128 H (70-110) mg/dL POC Glu Ticket Attendant ID [place] Ernie Calcium (8.4-10.2) mg/dL Total Bilirubin (0.2-1.3) mg/dL AST (14-36) U/L ALT (4-34) U/L Alkaline Phosphatase (38-126) U/L Total Protein (6.3-8.2) g/dL Albumin (3.5-5.0) g/dL 05/16/24 Range/Units 04:50 WBC (3.8-10.6) k/uL RBC (3.80-5.40) m/uL Hgb (11.4-16.0) gm/dL Hct (34.0-46.0) % MCV (80.0-100.0) fL MCH (25.0-35.0) pg MCHC (31.0-37.0) g/dL RDW (11.5-15.5) % Plt Count (150-450) k/uL MPV Neutrophils % % Lymphocytes % % Monocytes % % Eosinophils % % Basophils % % Neutrophils # (1.3-7.7) k/uL Lymphocytes # (1.0-4.8) k/uL Monocytes # (0-1.0) k/uL Eosinophils # (0-0.7) k/uL Basophils # (0-0.2) k/uL Hypochromasia PT (10.0-12.5) sec INR (<1.2) APTT (22.0-30.0) sec Sodium 137 (137-145) mmol/L Potassium 4.1 (3.5-5.1) mmol/L Chloride 98 (98-107) mmol/L Carbon Dioxide 27 (22-30) mmol/L Anion Gap 12 mmol/L BUN 19 H (7-17) mg/dL Creatinine 0.68 (0.52-1.04) mg/dL Est GFR (CKD-EPI)AfAm >90 (>60 ml/min/1.73 sqM) Est GFR (CKD-EPI)NonAf 84 (>60 ml/min/1.73 sqM) Glucose 113 H (74-99) mg/dL POC Glucose (mg/dL) (70-110) mg/dL POC Glu Ticket Attendant ID Calcium 9.0 (8.4-10.2) mg/dL Total Bilirubin 0.5 (0.2-1.3) mg/dL AST 17 (14-36) U/L ALT 14 (4-34) U/L Alkaline Phosphatase 62 (38-126) U/L Total Protein 6.6 (6.3-8.2) g/dL Albumin 3.8 (3.5-5.0) g/dL - EKG Data -: EKG Interpreted by Me EKG shows normal: sinus rhythm (With frequent premature supraventricular complexes), axis (Normal), intervals (Normal), QRS complexes (Normal) Rate: normal (Rate approximately 97) Disposition Clinical Impression: Fall, Intertrochanteric fracture of right hip Disposition: ADMITTED IP TO THIS [facility] Condition: Stable Is patient prescribed a controlled substance at d/c from ED?: No
[2024-05-16] MEDS: SODIUM CHLORIDE 0.9% 1,000 ML IV SCH (06:30)
[2024-05-16 06:35] LABS: Basophils # (A) 0.1 k/uL (0-0.2); Basophils % (A) 1 %; Eosinophils # (A) 0.1 k/uL (0-0.7); Eosinophils % (A) 1 %; HCT 40.3 % (34.0-46.0); HGB 12.6 gm/dL (11.4-16.0); Hypochromasia Slight; Lymphocytes # (A) 2.1 k/uL (1.0-4.8); Lymphocytes % (A) 16 %; MCHC 31.2 g/dL (31.0-37.0); MCV 86.6 fL (80.0-100.0); Mean Platelet Volume 8.3; Monocytes # (A) 0.9 k/uL (0-1.0); Monocytes % (A) 7 %; Neutrophils # (A) 9.8 k/uL (1.3-7.7); Neutrophils % (A) 75 %; Platelet Count 277 k/uL (150-450); RBC 4.65 m/uL (3.80-5.40); RDW 15.4 % (11.5-15.5); WBC 13.2 k/uL (3.8-10.6)
[2024-05-16 06:45] LABS: Partial Thromboplastin Time 24.1 sec (22.0-30.0); Prothrombin Time 11.2 sec (10.0-12.5)
[2024-05-16 06:47] LABS: ALT 14 U/L (4-34); AST 17 U/L (14-36); African American GFR (CKD) >90 (>60 ml/min/1.73 sqM); Albumin 3.8 g/dL (3.5-5.0); Alkaline Phosphatase 62 U/L (38-126); Anion Gap 12 mmol/L; Blood Urea Nitrogen 19 mg/dL (7-17); Carbon Dioxide 27 mmol/L (22-30); Chloride 98 mmol/L (98-107); Glucose 113 mg/dL (74-99); Non-African American GFR(CKD) 84 (>60 ml/min/1.73 sqM); Potassium 4.1 mmol/L (3.5-5.1); Sodium 137 mmol/L (137-145); Total Bilirubin 0.5 mg/dL (0.2-1.3); Total Protein 6.6 g/dL (6.3-8.2)
[2024-05-16] MEDS: MORPHINE SULFATE 4 MG/ML SYRINGE IV PRN (07:34)
[2024-05-16] MEDS: INSULIN ASPART (NovoLOG) 100 UNIT/ML VIAL SQ SCH (07:40)
[2024-05-16 07:41] LABS: Glucose,Whole Blood 136 mg/dL (70-110)
[2024-05-16] MEDS: PANTOPRAZOLE 40 MG/10 ML VIAL IV SCH (08:13)
--- NOTE | 2024-05-16 08:13 | P.HPOR ---
History of Present Illness The patient is a very pleasant 78-year-old female who is presently in the ER following a ground-level fall. The patient states that she fell last night resulting in right hip pain and an inability to ambulate. She was brought to [facility] ER where x-rays show a right hip fracture. At the time of my evaluation the patient is complaining of isolated pain in her right hip. She normally lives at home with her and is a community ambulator. She denies antecedent right hip pain. Past Medical History Past Medical History: Cancer, Diabetes Mellitus, GERD/Reflux, Hyperlipidemia, Rheumatoid Arthritis (RA) Additional Past Medical History / Comment(s): anemia,fatigue, has followed w/ Dr Mello in the past with prior iron transfusion, "head tremors", Rt Right Breast Cancer (Nov 2015)-received chemo and radiation. daily steroid History of Any Multi-Drug Resistant Organisms: None Reported Past Surgical History: Hysterectomy Additional Past Surgical History / Comment(s): right breast lumpectomy 2015,left breast reduction 2015 skin cysts removed, Breast bx. Past Anesthesia/Blood Transfusion Reactions: No Reported Reaction Additional Past Anesthesia/Blood Transfusion Reaction / Comment(s): iron transfusions in past no blood transfusions Past Psychological History: Anxiety Smoking Status: Former smoker - Past Family History Brother(s) Family Medical History: Cancer Additional Family Medical History / Comment(s): w/ bladder CA Medications and Allergies Home Medications Medication Instructions Recorded Confirmed Type DULoxetine HCL [Cymbalta] 60 mg PO BID 04/19/19 01/04/24 History Omeprazole 20 mg PO BID 04/19/19 01/04/24 History Raloxifene [[place]] 60 mg PO DAILY 04/19/19 01/04/24 History metFORMIN HCL [Glucophage] 500 mg PO BID 04/19/19 01/04/24 History predniSONE 10 mg PO QAM 04/19/19 01/04/24 History lisinopriL [Prinivil] 5 mg PO QAM 05/09/20 01/04/24 History Atorvastatin [Lipitor] 40 mg PO DAILY 05/18/23 01/04/24 History LORazepam [Ativan] 0.5 mg PO TID PRN 05/18/23 01/04/24 History Allergies Allergy/AdvReac Type Severity Reaction Status Date / Time Penicillins Allergy Itching Verified 05/16/24 04:51 Physical Examination Patient is resting comfortably in her ER gurney. She is alert and able to answer questions. Her head is normocephalic and atraumatic. She demonstrates nonlabored breathing. Her abdomen is soft and nontender. Both upper extremities and the left lower extremity are without deformities. A focused exam of the right lower extremity was conducted. The right leg is shortened and externally rotated. There are no skin lesions. She has pain with any attempts at passive range of motion. She is nontender over the right knee or ankle. She can actively plantarflex and dorsiflex her ankle and her toes. Results X-rays of the pelvis and right hip show a short reverse oblique proximal femur fracture - Labs Labs: Abnormal Lab Results - Last 24 Hours (Table) 05/16/24 05/16/24 05/16/24 Range/Units 04:47 04:50 04:50 WBC 13.2 H (3.8-10.6) k/uL Neutrophils # 9.8 H (1.3-7.7) k/uL BUN 19 H (7-17) mg/dL Glucose 113 H (74-99) mg/dL POC Glucose (mg/dL) 128 H (70-110) mg/dL 05/16/24 Range/Units 07:39 WBC (3.8-10.6) k/uL Neutrophils # (1.3-7.7) k/uL BUN (7-17) mg/dL Glucose (74-99) mg/dL POC Glucose (mg/dL) 136 H (70-110) mg/dL H & H 05/16/24 Range/Units 04:50 Hgb 12.6 (11.4-16.0) gm/dL Hct 40.3 (34.0-46.0) % Coagulation 05/16/24 Range/Units 04:50 INR 1.0 (<1.2) Result Diagrams: 05/16/24 04:50 05/16/24 04:50 Assessment and Plan Assessment: Right reverse oblique intertrochanteric femur fracture Plan: I met with the patient in the emergency department to discuss her injury and treatment options. I would recommend stabilization with an intramedullary hip screw. We discussed the procedure and the potential risks and complications. Internal medicine has been consulted for preoperative clearance and perioperative medical management. We will plan for surgery later today if she is medically stable and cleared for surgery. In the interim she is to remain strictly nonweightbearing and on bedrest. Time with Patient: Greater than 30
--- NOTE | 2024-05-16 09:36 | P.CONS ---
History of Present Illness - Reason for Consult Consult date: 05/16/24 Medical management Requesting physician: Zac Limon - Chief Complaint Comminuted right IT fracture - History of Present Illness HISTORY OF PRESENT ILLNESS: This is a 78-year-old female patient of mine with a previous medical history significant for hypertension and hypertensive cardiovascular disease, hyperlipidemia, age-related osteoporosis fibromyalgia, anxiety, history of left breast cancer status post left lumpectomy has been under the care of hematology oncology, diabetes mellitus type 2, White's esophagus, anxiety disorder, polymyalgia rheumatica, major depressive disorder, chronic pain syndrome, patient has been taking care of her since she was diagnosed with glioblastoma multiforme he has been getting radiation and chemotherapy here at [facility], apparently patient has been overwhelmed with the fact that her is critically ill, patient woke up to go to use the restroom, and stood up and all of a sudden lost her balance fell backward hit the back and ended up with significant pain in the lumbar spine as well as the right hip area, EMS was called and the patient was transported to [facility] for evaluation, and the lumbar spine x-ray that showed degenerative disc disease without evidence of fracture chest x-ray did not show evidence of acute abnormalities, right hip showed evidence of commuted right IT femoral neck fracture she was admitted under orthopedic surgery I was asked to see the patient for preoperative medical clearance and medical management. REVIEW OF SYSTEMS: Constitutional: No documented fever, no chills, no night sweats. No weight change. No weakness, fatigue or lethargy. No daytime sleepiness. EENT: No headache. No blurred vision or double vision, no loss of vision. No loss of Hearing, no ringing in the ears, no dizziness. No nasal drainage or congestion. No epistaxis. No sore throat. Lungs: No shortness of breath, no cough, no sputum production. No wheezing. Reports dyspnea with activity. Cardiovascular: No chest pain, no lower extremity edema. No palpitations. No paroxysmal nocturnal dyspnea. No orthopnea. No lightheadedness or dizziness. No syncopal episodes. Abdominal: Reports abdominal pain. No nausea, vomiting. No diarrhea. No constipation. No bloody or tarry stools reports loss of appetite. Genitourinary: No dysuria, increased frequency, urgency. No urinary retention. Musculoskeletal: No myalgias. No muscle weakness, posituve for gait dysfunction, no frequent falls. positive for back pain. No neck pain, right hip pain Integumentary: No wounds, no lesions. No rash or pruritus. No unusual bruising. No change in hair or nails. Neurologic: No aphasia. No facial droop. No change in mentation. No head injury. No headache. No paralysis. No paresthesia. Psychiatric: positive for depression. positive for anxiety. No mood swings. Endocrine: No abnormal blood sugars. positive for weight change. PAST MEDICAL HISTORY: Hypertension and hypertensive cardiovascular disease. Mixed hyperlipidemia. Age-related osteoporosis. Anxiety. Depression. Malignant neoplasm of left female breast. Diabetes mellitus type 2. White's esophagus without dysplasia. Fibromyalgia. Polymyalgia rheumatica Degenerative disc disease of the lumbar spine. Iron deficiency anemia. Vitamin D deficiency. GERD with esophagitis. PAST SURGICAL HISTORY: Right breast biopsy Left breast biopsy Lumpectomy SOCIAL HISTORY: Patient is a lifelong non-smoker, she denies any alcohol ingestion, she denies any drug use or abuse. FAMILY HISTORY: Father at age 78 from congestive heart failure mother at the age of 54 from atherosclerosis, patient had 2 brothers 1 at the age of 94 from [place] the other 1 with CABG, patient has 1 sister with dementia and Crohn disease with ileostomy patient has 1 son with ulcerative colitis and psoriatic arthritis patient has 1 daughter alive and well. PHYSICAL EXAMINATION: General: 78-year-old female examined in bed in significant distress. HEENT: Head is atraumatic, normocephalic, pupils were equal round reactive to light and recommendation, extraocular muscle movement were intact, sclera nonicteric, conjunctivae were pale, mucous membranes of the mouth are somewhat d ry. Neck: Supple, no JVP, normal carotid upstroke bilaterally, no lymphadenopathy. Chest: Decreased breath sounds at the bases, few rhonchi, no expiratory wheezes, no chest wall tenderness, no intercostal retractions. Heart: First heart sound is normal, second heart sounds normal there is systolic ejection murmur 2/6 located in the left sternal border Abdomen: Soft, nontender, nondistended, positive bowel sounds. Extremities: There is no edema no calf, right lower extremity is shorter and externally rotated. Status pedis +2 bilaterally. Neurologic examination: Patient is awake alert and oriented x3, cranial nerves II-12 appear grossly intact, muscle power were 4 out of 5 in upper extremities and 3 out of 5 in left lower extremity. ASSESSMENT AND PLAN: 1. Status post a fall with right IT fracture. Patient is coming for a moderate risk surgery there is no contraindication for the proposed surgical intervention at this point in time, I will obtain twelve-lead EKG for evaluation, patient is to be maintained on incentive spirometer to reduce the incidence of atelectasis and healthcare associated pneumonia, DVT prophylaxis as well as physical therapy evaluation and pain management. 2. Hypertension and hypertensive cardiovascular disease. Continue patient on lisinopril 5 mg orally once every day, monitor the patient blood pressure very closely. 3. Hyperlipidemia. Continue patient on atorvastatin 40 mg orally orally once every day. 4. History of diabetes mellitus type 2. Patient has been on metformin 500 mg orally twice every day as well and Soliqua 15 units after breakfast daily. We will hold Soliqua and start the patient on Levemir 15 units at bedtime along with a sliding scale insulin. 5. History of dietary disorder. Continue patient on lorazepam 0.5 mg orally 3 times a day as needed. Continue duloxetine 60 mg in the morning and 30 mg in the evening. 6. Depressive disorder. Currently on duloxetine 60 mg in the morning and 40 mg in the evening. 7. History of White's esophagus/GERD with esophagitis. Continue patient on pantoprazole 40 mg orally once every day. 8. Fibromyalgia. Continue duloxetine 60 mg in the morning 30 mg in the evening as well as pain management. 9. History of polymyalgia rheumatica currently on prednisone 10 mg orally once every day. 10. History of osteoporosis. Was supposed to be started on Prolia injection e very 6-month however the insurance declined, patient is currently on calcium 1200 mg once every day, vitamin D3 2000 unit once every day, Evista 60 mg orally once every day. 11. This is the lumbar spine that continue current pain management. 12. Thank you Dr. Limon for allowing me to participate in the care of your patient I will be more than happy to follow the patient with you. Past Medical History Past Medical History: Cancer, Diabetes Mellitus, GERD/Reflux, Hyperlipidemia, Rheumatoid Arthritis (RA) Additional Past Medical History / Comment(s): anemia,fatigue, has followed w/ Dr Mello in the past with prior iron transfusion, "head tremors", Rt Right Breast Cancer (Nov 2015)-received chemo and radiation. daily steroid History of Any Multi-Drug Resistant Organisms: None Reported Past Surgical History: Hysterectomy Additional Past Surgical History / Comment(s): right breast lumpectomy 2015,left breast reduction 2016 skin cysts removed, Breast bx. Past Anesthesia/Blood Transfusion Reactions: No Reported Reaction Additional Past Anesthesia/Blood Transfusion Reaction / Comm: iron transfusions in past no blood transfusions Past Psychological History: Anxiety Smoking Status: Former smoker - Past Family History Brother(s) Family Medical History: Cancer Additional Family Medical History / Comment(s): w/ bladder CA Medications and Allergies Home Medications Medication Instructions Recorded Confirmed Type DULoxetine HCL [Cymbalta] 60 mg PO BID 04/19/19 01/04/24 History Omeprazole 20 mg PO BID 04/19/19 01/04/24 History Raloxifene [Evista] 60 mg PO DAILY 04/19/19 01/04/24 History metFORMIN HCL [Glucophage] 500 mg PO BID 04/19/19 01/04/24 History predniSONE 10 mg PO QAM 04/19/19 01/04/24 History lisinopriL [Prinivil] 5 mg PO QAM 05/09/20 01/04/24 History Atorvastatin [Lipitor] 40 mg PO DAILY 05/18/23 01/04/24 History LORazepam [Ativan] 0.5 mg PO TID PRN 05/18/23 01/04/24 History Allergies Allergy/AdvReac Type Severity Reaction Status Date / Time Penicillins Allergy Itching Verified 05/16/24 04:51 Physical Exam Vitals: Vital Signs Temp Pulse Resp BP Pulse Ox 05/16/24 06:05 80 16 142/71 93 L 05/16/24 04:43 98.1 F 89 20 197/88 94 L Intake and Output 05/15/24 05/15/24 05/16/24 14:59 22:59 06:59 Other: Weight 64.864 kg Results CBC & Chem 7: 05/16/24 04:50 05/16/24 04:50 Labs: Abnormal Lab Results - Last 24 Hours (Table) 05/16/24 Range/Units 04:47 POC Glucose (mg/dL) 128 H (70-110) mg/dL
[2024-05-16] MEDS: HYDROmorphone 0.5 MG/0.5 ML SYRINGE IVP PRN (10:36)
[2024-05-16 11:53] LABS: Glucose,Whole Blood 135 mg/dL (70-110)
[2024-05-16] MEDS: IV FLUID CONTINUATION 1,000 ML IV ONE ×2 (15:43→18:26)
[2024-05-16 15:50] LABS: Glucose,Whole Blood 139 mg/dL (70-110)
[2024-05-16] MEDS: LACTATED RINGERS 1,000 ML BAG IV STA (15:53)
[2024-05-16] MEDS: ONDANSETRON 4 MG/2 ML VIAL IVP PRN (16:06)
[2024-05-16] MEDS: DEXAMETHASONE SOD PHOSPHATE 4 MG/ML 1 ML VIAL IVP STA (16:07)
[2024-05-16] MEDS ORDERED: GLYCOPYRROLATE 0.2 MG/ML 2 ML VIAL ONE (16:34)
[2024-05-16] MEDS ORDERED: LIDOCAINE 1% INJ 10MG/ML (20 ML MDV) ONE (16:34)
[2024-05-16] MEDS ORDERED: PROPOFOL 10 MG/ML 20 ML VIAL IV ONE (16:34)
[2024-05-16] MEDS ORDERED: SUCCINYLCHOLINE CHLORIDE 200 MG/10 ML VIAL IV ONE (16:34)
[2024-05-16] MEDS ORDERED: ceFAZolin 1 GM/50 ML BAG (PMX) ONE (16:34)
[2024-05-16] MEDS ORDERED: ROCURONIUM 10 MG/ML (5 ML VIAL) IV ONE (16:34)
[2024-05-16] MEDS ORDERED: MIDAZOLAM 2 MG/2 ML VIAL ONE (16:34)
[2024-05-16] MEDS ORDERED: PHENYLEPHRINE-0.9% NACL SYG 1,000 MCG/10 ML SYRINGE ONE (16:34)
[2024-05-16] MEDS ORDERED: TRANEXAMIC 1,000 MG/100ML-NACL PREMIX BAG ONE (16:34)
[2024-05-16] MEDS ORDERED: NEOSTIGMINE 1 MG/ML 10 ML VIAL ONE (16:34)
[2024-05-16] MEDS ORDERED: fentaNYL (PF) 50 MCG/ML 2 ML AMP ONE (16:34)
[2024-05-16] MEDS: IV FLUID CONTINUATION 50 ML with ceFAZolin 2,000 MG IV ONE (16:40)
--- NOTE | 2024-05-16 18:33 | XR ---
EXAMINATION TYPE: XR Hip Complete RT, FL guidance operating room DATE OF EXAM: 05/16/2024 6:24 PM COMPARISON: Pre Operative Images if available both CT/MRI or plain film CLINICAL INDICATION: Female, 78 years old with history of RT HIP GAMMA NAIL; TECHNIQUE: XR Hip Complete RT, FL guidance operating room, multiple fluoroscopic images provided for procedure. DAP: 2.7536 mGym2 Gycm2 uGym2 cGycm2 or equivalent. FINDINGS: Fluoroscopic images during internal fixation/arthroplasty demonstrate hardware in appropriate positio n. Hardware appears intact. No immediate complication identified. IMPRESSION: 1. No evidence for intraoperative complication. 2. Please see the operative/procedural note for further details. [facility], , 05/16/2024 6:30 PM
[2024-05-16] MEDS ORDERED: MAGNESIUM HYDROXIDE 2,400 MG/30 ML CUP PO PRN (18:49)
[2024-05-16] MEDS ORDERED: HYDROmorphone 0.5 MG/0.5 ML SYRINGE IVP PRN ×2 (18:49)
--- NOTE | 2024-05-16 18:49 | P.OP ---
Date of Procedure: 05/16/24 Preoperative Diagnosis: 1. Right reverse oblique subtrochanteric femur fracture 2. Coronary artery disease 3. Polymyalgia rheumatica 4. History of breast cancer 5. Type 2 diabetes 6. Chronic pain Postoperative Diagnosis: Same Procedure(s) Performed: Operative fixation of right subtrochanteric femur fracture with long intramedullary hip screw Implants: [place] gamma nail 11 x 400 mm x 125 degrees, 90 mm lag screw, 45 mm distal interlocking screw, 40 mm distal interlocking screw Anesthesia: FARNAZ, regional Surgeon: Zac Limon Special Education Teacher #1: Kendall Oneal Estimated Blood Loss (ml): 200 IV fluids (ml): 800 Pathology: none sent Condition: stable Disposition: PACU Indications for Procedure: I met with the patient and their family preoperatively to discuss their injury and treatment options. They have a reverse oblique subtrochanteric femur fracture and my recommendation was to stabilize the fracture with a long intramedullary hip screw to facilitate early mobilization. We discussed the potential risks and complications of this surgical procedure including but certainly not limited to risks from anesthesia, superficial infection, deep infection, fracture nonunion, fracture malunion, hardware failure including broken hardware, varus collapse with lag screw cut out of the femoral head, progression of hip arthritis, limb length discrepancy, symptomatic hardware, need for further surgery including hardware removal and conversion to arthroplasty, DVT, PE, acute coronary event, pressure ulcers, urinary tract infection, failure to thrive, an inability to regain preinjury level of function, and possibly . The patient and their family understand these potential complications and also awknowledge that other less common complications are possible. They provided both their verbal and written consent to go forward with operative fixation of their hip fracture with an intramedullary hip screw. Description of Procedure: The patient was identified in preoperative holding and the correct operative extremity was marked with my initials. I reviewed the consent form with the patient and their family and all of their questions were answered. The patient was then brought back to the operating room by anesthesia. Anesthesia, preoperative antibiotics, and tranexamic acid were given by the anesthesia team while on the [place]. Both ankles were padded with webril and boots for the [place] table were applied. The patient was then carefully transferred onto the [place] table. A perineal post was immediately placed. The contralateral arm was secured on a well-padded arm ulloa. The ipsilateral arm was draped across the chest and secured with a pillow, foam, and paper tape to allow access to the proximal femur. Nonsterile drapes were applied to the operative extremity. The height of the table was elevated and the contralateral extremity was dropped towards the floor to facilitate imaging. A timeout was performed identifying the correct patient, operative extremity, and procedure. Fluoroscopy was brought in to assess the fracture. A provisional reduction was performed using longitudinal traction, adduction, and internal rotation. An AP and lateral view were obtained to assess the reduction. The operative extremity was then prepped and draped in the standard sterile fashion. A straight incision was made at the tip of the greater trochanter and extended proximally for 3 cm. Skin and subcutaneous tissues were incised sharply. The underlying fascia was incised in line with the skin incision. An awl was placed just medial to the tip of the greater trochanter on the AP view and colinear with the canal on the lateral view. A 3.2 mm guide pin was then advanced into the proximal femur. The position of the guidepin was verified with fluoroscopy. An opening reamer and soft tissue cannula were placed over the guidepin and used to open the proximal femur to the level of the lesser trochanter. The 3.2 mm guide pin and opening reamer were removed. A long ball- tipped guidewire was then placed through the proximal opening in the femur and advanced distally into the femur to a level just proximal to the superior patella. The depth of the long ball-tipped guidewire was verified distally with fluoroscopy. The guidewire was centered in the femur on both views. A measuring device was then used and measured to just over 400 mm. I then placed a 12.5 mm reamer by hand over the guidepin and had minimal resistance. A 11 mm x 400 mm nail was dispensed. The nail was attached to the targeting arm. I verified that the trochar through the targeting arm lined up with the slots on the nail. The nail was then impacted into the proximal femur until the appropriate depth had been reached. A small stab incision was made over the lateral aspect of the femur using the targeting arm as a reference for the lag screw. Incision was carried down to the skin and fascia down to the lateral cortex of the femur. The trocar was then placed up to the lateral cortex of the femur and a guidepin was placed in the center position on the AP view and centered in the femoral head on the lateral view. Once the position of the g uidewire was verified, we reamed to appropriate depth and placed a lag screw over the guidewire and into the femoral head. The position of the lag screw was assessed with fluoroscopy. The guidewire was then removed from the femoral head. The set screw was placed proximally, brought fully down and then released a quarter turn to allow compression. The targeting arm was then removed proximally. 2 distal interlocking screws were made through a small lateral incision over the distal femur using the freehand perfect mohegan technique. Once this had been completed final fluoroscopic images were taken showing excellent reduction of the fracture and appropriate position of the implants. All wounds were thoroughly irrigated and closed in layers. Sterile dressings were applied. The drapes were taken down, the patient was transferred off the [place] table, and was brought to recovery having tolerated the procedure well. Kendall Oneal MD was required as a skilled library clerical assistant due to the complexity of surgery for patient positioning, exposure, draping, reduction of fracture, placement of implant, closure of wound, and application of dressing. PLAN: The patient can weight-bear as tolerated on their operative extremity. 2 doses of postoperative antibiotics. DVT prophylaxis with aspirin 81 mg twice a day starting the day of surgery. Dressing change on postoperative day #2. Appreciate Internal Medical assistance with perioperative medical management. Discharge planning in process.
[2024-05-16] MEDS: SODIUM CHLORIDE 0.9% 1,000 ML IV ONE (20:48)
[2024-05-16 20:56] LABS: Glucose,Whole Blood 162 mg/dL (70-110)
[2024-05-16] MEDS: SENNOSIDES-DOCUSATE SODIUM 1 EACH TAB PO SCH (22:11)
[2024-05-16] MEDS: HYDROCORTISONE SUCCINATE 100 MG/2 ML VIAL IV SCH (22:11)
[2024-05-16 23:04] LABS: Basophils % (A) 0 %; Eosinophils % (A) 0 %; HCT 34.6 % (34.0-46.0); HGB 11.1 gm/dL (11.4-16.0); Hypochromasia Moderate; Lymphocytes # (A) 0.6 k/uL (1.0-4.8); Lymphocytes % (A) 4 %; MCH 27.8 pg (25.0-35.0); Mean Platelet Volume 8.5; Monocytes # (A) 0.5 k/uL (0-1.0); Monocytes % (A) 4 %; Neutrophils # (A) 13.5 k/uL (1.3-7.7); Neutrophils % (A) 91 %; Platelet Count 291 k/uL (150-450); RBC 3.98 m/uL (3.80-5.40); RDW 15.4 % (11.5-15.5); WBC 14.7 k/uL (3.8-10.6)
[2024-05-17] MEDS: HYDROcodone/APAP 10-325MG 1 EACH TAB PO PRN (04:34)
[2024-05-17 06:24] LABS: Glucose,Whole Blood 142 mg/dL (70-110)
--- NOTE | 2024-05-17 09:06 | P.PN ---
Subjective Progress Note Date: 05/17/24 No acute events overnight per patient. Patient states they have right hip pain. Patient states they have not been up to chair yet. Patient states they have been eating breakfast this morning and tolerated that well. Objective - Vital Signs Vital signs: Vital Signs Temp 98.5 F 05/17/24 07:15 Pulse 62 05/17/24 07:15 Resp 15 05/17/24 07:15 BP 118/62 05/17/24 07:15 Pulse Ox 95 05/17/24 07:15 FiO2 Intake & Output 05/16/24 05/17/24 05/17/24 18:59 06:59 18:59 Intake Total 1150 Output Total 200 400 Balance 950 -400 Weight 64.864 kg Intake: IV 1150 Output: Urine 400 Straight 400 Estimated Blood Loss 200 Other: Voiding Method External Catheter # Voids 1 - Exam Patient was examined at bedside. Patient is resting comfortably in bed. No apparent distress. They are awake, alert and able to answer questions. On inspection the surgical hip dressing is intact, there is no drainage or strikethrough. The skin surrounding the dressing is free of erythema. There is mild swelling in the operative thigh. Operative femoral nerve function is intact. The operative calf is soft to compression. The patient is able to actively plantarflex and dorsiflex their operative ankle and toes. Their operative foot appears well perfused with capillary refill under 2 seconds. - Labs CBC & Chem 7: 05/16/24 22:13 05/16/24 04:50 Labs: Abnormal Lab Results - Last 24 Hours (Table) 05/16/24 05/16/24 05/16/24 Range/Units 11:52 15:48 20:55 WBC (3.8-10.6) k/uL Hgb (11.4-16.0) gm/dL Neutrophils # (1.3-7.7) k/uL Lymphocytes # (1.0-4.8) k/uL POC Glucose (mg/dL) 135 H 139 H 162 H (70-110) mg/dL 05/16/24 05/17/24 Range/Units 22:13 06:22 WBC 14.7 H (3.8-10.6) k/uL Hgb 11.1 L (11.4-16.0) gm/dL Neutrophils # 13.5 H (1.3-7.7) k/uL Lymphocytes # 0.6 L (1.0-4.8) k/uL POC Glucose (mg/dL) 142 H (70-110) mg/dL Assessment and Plan Assessment: Postop day #1 Operative fixation of right subtrochanteric femur fracture with long intramedullary hip screw Right hip pain Plan: Weight-bear as tolerated on the operative extremity. Use a walker to ambulate with assistance. Leave surgical dressing in place. Physical therapy for gait training and mobilization. We appreciate internal medicine for perioperative medical management. Disposition: Plan to stay tonight.
[2024-05-17] MEDS: predniSONE 10 MG TAB PO SCH (09:34)
[2024-05-17] MEDS: HYDROmorphone 0.5 MG/0.5 ML SYRINGE IVP PRN (09:41)
[2024-05-17 11:41] LABS: Glucose,Whole Blood 130 mg/dL (70-110)
[2024-05-17 11:53] LABS: ALT 11 U/L (8-44); AST 15 U/L (13-35); Albumin 3.2 g/dL (3.8-4.9); Albumin/Globulin Ratio 1.52 Ratio (1.60-3.17); Alkaline Phosphatase 41 U/L (41-126); Blood Urea Nitrogen 14.4 mg/dL (9.0-27.0); Calcium 8.2 mg/dL (8.7-10.3); Carbon Dioxide 29.7 mmol/L (21.6-31.8); Chloride 101 mmol/L (96-109); Globulin 2.1 g/dL (1.6-3.3); Glucose 127 mg/dL (70-110); Potassium 4.3 mmol/L (3.5-5.5); Sodium 140 mmol/L (135-145); Total Bilirubin 0.5 mg/dL (0.3-1.2); Total Protein 5.3 g/dL (6.2-8.2)
[2024-05-17 16:50] LABS: Glucose,Whole Blood 173 mg/dL (70-110)
--- NOTE | 2024-05-17 18:58 | P.PN ---
Subjective Progress Note Date: 05/17/24 HISTORY OF PRESENT ILLNESS: This is a 78-year-old female patient of [facility] with a previous medical history significant for hypertension and hypertensive cardiovascular disease, hyperlipidemia, age-related osteoporosis fibromyalgia, anxiety, history of left breast cancer status post left lumpectomy has been under the care of hematology oncology, diabetes mellitus type 2, White's esophagus, anxiety disorder, polymyalgia rheumatica, major depressive disorder, chronic pain syndrome, patient has been taking care of her since she was diagnosed with glioblastoma multiforme he has been getting radiation and chemotherapy here at [facility], apparently patient has been overwhelmed with the fact that her is critically ill, patient woke up to go to use the restroom, and stood up and all of a sudden lost her balance fell backward hit the back and ended up with significant pain in the lumbar spine as well as the right hip area, EMS was called and the patient was transported to [facility] for evaluation, and the lumbar spine x-ray that showed degenerative disc disease without evidence of fracture chest x-ray did not show evidence of acute abnormalities, right hip showed evidence of commuted right IT femoral neck fracture she was admitted under orthopedic surgery I was asked to see the patient for preoperative medical clearance and medical management. 05/17: Patient is laying down in bed in no apparent distress, she denies any chest pain, shortness of breath at this time, her pain is not well-controlled, she underwent right IT femoral neck fracture fixation with a long intramedullary nail that was done successfully, patient was instructed about usage of incentive spirometer to reduce the incidence of atelectasis and healthcare associated pneu monia, continue current pain management, physical therapy evaluation, patient will likely require subacute rehabilitation. REVIEW OF SYSTEMS: Constitutional: No documented fever, no chills, no night sweats. No weight change. No weakness, fatigue or lethargy. No daytime sleepiness. EENT: No headache. No blurred vision or double vision, no loss of vision. No loss of Hearing, no ringing in the ears, no dizziness. No nasal drainage or congestion. No epistaxis. No sore throat. Lungs: No shortness of breath, no cough, no sputum production. No wheezing. Reports dyspnea with activity. Cardiovascular: No chest pain, no lower extremity edema. No palpitations. No paroxysmal nocturnal dyspnea. No orthopnea. No lightheadedness or dizziness. No syncopal episodes. Abdominal: Reports abdominal pain. No nausea, vomiting. No diarrhea. No constipation. No bloody or tarry stools reports loss of appetite. Genitourinary: No dysuria, increased frequency, urgency. No urinary retention. Musculoskeletal: No myalgias. No muscle weakness, posituve for gait dysfunction, no frequent falls. positive for back pain. No neck pain, right hip pain Integumentary: No wounds, no lesions. No rash or pruritus. No unusual bruising. No change in hair or nails. Neurologic: No aphasia. No facial droop. No change in mentation. No head injury. No headache. No paralysis. No paresthesia. Psychiatric: positive for depression. positive for anxiety. No mood swings. Endocrine: No abnormal blood sugars. positive for weight change. PHYSICAL EXAMINATION: General: 78-year-old female examined in bed in significant distress. HEENT: Head is atraumatic, normocephalic, pupils were equal round reactive to light and recommendation, extraocular muscle movement were intact, sclera nonicteric, conjunctivae were pale, mucous membranes of the mouth are somewhat dry. Neck: Supple, no JVP, normal carotid upstroke bilaterally, no lymphadenopathy. Chest: Decreased breath sounds at the bases, few rhonchi, no expiratory wheezes, no chest wall tenderness, no intercostal retractions. Heart: First heart sound is normal, second heart sounds normal there is systolic ejection murmur 2/6 located in the left sternal border Abdomen: Soft, nontender, nondistended, positive bowel sounds. Extremities: There is no edema no calf, right lower extremity is shorter and externally rotated. Status pedis +2 bilaterally. Neurologic examination: Patient is awake alert and oriented x3, cranial nerves II-12 appear grossly intact, muscle power were 4 out of 5 in upper extremities and 3 out of 5 in left lower extremity. ASSESSMENT AND PLAN: 1. Postoperative day #1 status post intramedullary long nail for right hip IT fracture. Continue current pain management as outlined by orthopedic surgery, continue DVT prophylaxis, continue the use of incentive spirometer, physical therapy evaluation, patient will likely require subacute rehabilitation. Discontinue Solu-Cortef, start the patient back on her prednisone 10 mg orally once every day. With orthopedic surgery. 2. Hypertension and hypertensive cardiovascular disease. Continue patient on lisinopril 5 mg orally once every day, monitor the patient blood pressure very closely. 3. Hyperlipidemia. Continue patient on atorvastatin 40 mg orally orally once every day. 4. History of diabetes mellitus type 2. Patient has been on metformin 500 mg orally twice every day as well and Soliqua 15 units after breakfast daily. We will hold Soliqua and start the patient on Levemir 15 units at bedtime along with a sliding scale insulin. 5. History of anxiety disorder. Continue patient on lorazepam 0.5 mg orally 3 times a day as needed. Continue duloxetine 60 mg in the morning and 30 mg in the evening. 6. Depressive disorder. Currently on duloxetine 60 mg in the morning and 40 mg in the evening. 7. History of White's esophagus/GERD with esophagitis. Continue patient on pantoprazole 40 mg orally once every day. 8. Fibromyalgia. Continue duloxetine 60 mg in the morning 30 mg in the evening as well as pain management. 9. History of polymyalgia rheumatica currently on prednisone 10 mg orally once every day. Will resume that. Discontinue Solu-Cortef. 10. History of osteoporosis. Was supposed to be started on Prolia injection every 6-month however the insurance declined, patient is currently on calcium 1200 mg once every day, vitamin D3 2000 unit once every day, Evista 60 mg orally once every day. 11. Spondylosis of lumbar spine. Current pain management. 12. Physical therapy evaluation. 13. automotive worker consultation for discharge planning. Objective - Vital Signs Vital signs: Vital Signs Temp 98.1 F 05/17/24 01:54 Pulse 53 L 05/17/24 01:54 Resp 15 05/17/24 01:54 BP 145/69 05/17/24 01:54 Pulse Ox 96 05/17/24 01:54 FiO2 Intake & Output 05/16/24 05/17/24 05/17/24 18:59 06:59 18:59 Intake Total 1150 Output Total 200 400 Balance 950 -400 Weight 64.864 kg Intake: IV 1150 Output: Urine 400 Straight 400 Estimated Blood Loss 200 Other: Voiding Method External Catheter # Voids 1 - Labs CBC & Chem 7: 05/16/24 22:13 05/17/24 07:34 Labs: Abnormal Lab Results - Last 24 Hours (Table) 05/16/24 05/16/2405/16/25 Range/Units 07:39 11:52 15:48 WBC (3.8-10.6) k/uL Hgb (11.4-16.0) gm/dL Neutrophils # (1.3-7.7) k/uL Lymphocytes # (1.0-4.8) k/uL POC Glucose (mg/dL) 136 H 135 H 139 H (70-110) mg/dL 05/16/24 05/16/24 05/17/24 Range/Units 20:55 22:13 06:22 WBC 14.7 H (3.8-10.6) k/uL Hgb 11.1 L (11.4-16.0) gm/dL Neutrophils # 13.5 H (1.3-7.7) k/uL Lymphocytes # 0.6 L (1.0-4.8) k/uL POC Glucose (mg/dL) 162 H 142 H (70-110) mg/dL
[2024-05-18 00:11] LABS: Glucose,Whole Blood 131 mg/dL (70-110)
[2024-05-18 06:26] LABS: Glucose,Whole Blood 135 mg/dL (70-110)
[2024-05-18 07:35] LABS: ALT 12 U/L (4-34); AST 19 U/L (14-36); African American GFR (CKD) 85 (>60 ml/min/1.73 sqM); Albumin/Globulin Ratio 1.2; Alkaline Phosphatase 53 U/L (38-126); Anion Gap 6 mmol/L; Blood Urea Nitrogen 11 mg/dL (7-17); Calcium 8.5 mg/dL (8.4-10.2); Carbon Dioxide 32 mmol/L (22-30); Chloride 97 mmol/L (98-107); Globulin 2.5 g/dL; Glucose 135 mg/dL (74-99); Non-African American GFR(CKD) 73 (>60 ml/min/1.73 sqM); Potassium 3.7 mmol/L (3.5-5.1); Sodium 135 mmol/L (137-145); Total Bilirubin 0.7 mg/dL (0.2-1.3); Total Protein 5.5 g/dL (6.3-8.2)
--- NOTE | 2024-05-18 07:58 | P.PN ---
Subjective Progress Note Date: 05/18/24 No acute events overnight per patient. Patient states their right hip pain continues but has improved since yesterday. Patient states they have not been up to chair yet despite recommendations due to pain. Objective - Vital Signs Vital signs: Vital Signs Temp 98.8 F 05/18/24 07:15 Pulse 93 05/18/24 07:15 Resp 17 05/18/24 07:15 BP 158/51 05/18/24 07:15 Pulse Ox 93 L 05/18/24 07:15 FiO2 Intake & Output 05/17/24 05/18/24 05/18/24 18:59 06:59 18:59 Output Total 700 Balance -700 Output: Urine 700 Other: Voiding Method Bedside Commode Diaper Diaper External Catheter # Voids 2 - Exam Patient was examined at bedside. Patient is resting comfortably in bed. No apparent distress. They are awake, alert and able to answer questions. On inspection the surgical hip dressings are intact, there is no drainage or strikethrough. The skin surrounding the dressing is free of erythema. There is mild swelling in the operative thigh. Operative femoral nerve function is intact. The operative calf is soft to compression. The patient is able to actively plantarflex and dorsiflex their operative ankle and toes. Their operative foot appears well perfused with capillary refill under 2 seconds. - Labs CBC & Chem 7: 05/16/24 22:13 05/18/24 06:57 Labs: Abnormal Lab Results - Last 24 Hours (Table) 05/17/24 05/17/24 05/17/24 Range/Units 07:34 11:39 16:49 Sodium (137-145) mmol/L Chloride (98-107) mmol/L Carbon Dioxide (22-30) mmol/L Glucose 127 H (70-110) mg/dL POC Glucose (mg/dL) 130 H 173 H (70-110) mg/dL Calcium 8.2 L (8.7-10.3) mg/dL Total Protein 5.3 L (6.2-8.2) g/dL Albumin 3.2 L (3.8-4.9) g/dL Albumin/Globulin Ratio 1.52 L (1.60-3.17) Ratio 05/17/24 05/18/24 05/18/24 Range/Units 21:02 06:25 06:57 Sodium 135 L (137-145) mmol/L Chloride 97 L (98-107) mmol/L Carbon Dioxide 32 H (22-30) mmol/L Glucose 135 H (70-110) mg/dL POC Glucose (mg/dL) 131 H 135 H (70-110) mg/dL Calcium (8.7-10.3) mg/dL Total Protein 5.5 L (6.2-8.2) g/dL Albumin 3.0 L (3.8-4.9) g/dL Albumin/Globulin Ratio (1.60-3.17) Ratio Assessment and Plan Assessment: Postop day #2 Operative fixation of right subtrochanteric femur fracture with long intramedullary hip screw Right hip pain Plan: Weight-bear as tolerated on the operative extremity. Use a walker to ambulate with assistance. Leave surgical dressings in place. Physical therapy for gait training and mobilization, on 05/17/2024 was determined the patient would need transfer to rehab at time of discharge. We appreciate internal medicine for perioperative medical management. Disposition: Plan transfer to rehab at time of discharge.
[2024-05-18] MEDS: ASPIRIN 81 MG PO SCH (08:29)
[2024-05-18 10:35] LABS: Basophils # (A) 0.07 X 10*3/uL (0.00-0.10); Basophils % (A) 0.6 %; Eosinophils # (A) 0.16 X 10*3/uL (0.04-0.35); Eosinophils % (A) 1.4 %; HCT 31.4 % (37.2-46.3); HGB 9.3 g/dL (12.0-15.0); Lymphocytes # (A) 1.82 X 10*3/uL (0.90-5.00); Lymphocytes % (A) 15.4 %; MCH 26.8 pg (27.0-32.0); MCHC 29.6 g/dL (32.0-37.0); MCV 90.5 FL (80.0-97.0); Mean Platelet Volume 10.9 FL (9.5-12.2); Monocytes # (A) 1.07 X 10*3/uL (0.20-1.00); NRBC Per 100 WBC 0 X 10*3/uL (0.00-0.01); Neutrophils # (A) 8.65 X 10*3/uL (1.80-7.70); Neutrophils % (A) 72.9 %; Platelet Count 271 X 10*3/uL (140-440); RBC 3.47 X 10*6/uL (4.10-5.20); RDW 15.4 % (11.5-14.5); WBC 11.85 X 10*3/uL (4.50-10.00)
[2024-05-18 11:52] LABS: Glucose,Whole Blood 173 mg/dL (70-110)
--- NOTE | 2024-05-18 14:26 | P.PN ---
Subjective Progress Note Date: 05/18/24 HISTORY OF PRESENT ILLNESS: This is a 78-year-old female patient of [facility] with a previous medical history significant for hypertension and hypertensive cardiovascular disease, hyperlipidemia, age-related osteoporosis fibromyalgia, anxiety, history of left breast cancer status post left lumpectomy has been under the care of hematology oncology, diabetes mellitus type 2, White's esophagus, anxiety disorder, polymyalgia rheumatica, major depressive disorder, chronic pain syndrome, patient has been taking care of her since she was diagnosed with glioblastoma multiforme he has been getting radiation and chemotherapy here at [facility], apparently patient has been overwhelmed with the fact that her is critically ill, patient woke up to go to use the restroom, and stood up and all of a sudden lost her balance fell backward hit the back and ended up with significant pain in the lumbar spine as well as the right hip area, EMS was called and the patient was transported to [facility] for evaluation, and the lumbar spine x-ray that showed degenerative disc disease without evidence of fracture chest x-ray did not show evidence of acute abnormalities, right hip showed evidence of commuted right IT femoral neck fracture she was admitted under orthopedic surgery I was asked to see the patient for preoperative medical clearance and medical management. 05/17: Patient is laying down in bed in no apparent distress, she denies any chest pain, shortness of breath at this time, her pain is not well-controlled, she underwent right IT femoral neck fracture fixation with a long intramedullary nail that was done successfully, patient was instructed about usage of incentive spirometer to reduce the incidence of atelectasis and healthcare associated pneu monia, continue current pain management, physical therapy evaluation, patient will likely require subacute rehabilitation. 05/18: In bed she is crying less, she continues to to be in pain, she is taking her pain medicine, physical therapy evaluation, patient will require to go to subacute rehabilitation at this time, continue current treatment plan, follow-up with the patient very closely, we will check her labs today REVIEW OF SYSTEMS: Constitutional: No documented fever, no chills, no night sweats. No weight change. No weakness, fatigue or lethargy. No daytime sleepiness. EENT: No headache. No blurred vision or double vision, no loss of vision. No loss of Hearing, no ringing in the ears, no dizziness. No nasal drainage or congestion. No epistaxis. No sore throat. Lungs: No shortness of breath, no cough, no sputum production. No wheezing. Reports dyspnea with activity. Cardiovascular: No chest pain, no lower extremity edema. No palpitations. No paroxysmal nocturnal dyspnea. No orthopnea. No lightheadedness or dizziness. No syncopal episodes. Abdominal: Reports abdominal pain. No nausea, vomiting. No diarrhea. No constipation. No bloody or tarry stools reports loss of appetite. Genitourinary: No dysuria, increased frequency, urgency. No urinary retention. Musculoskeletal: No myalgias. No muscle weakness, posituve for gait dysfunction, no frequent falls. positive for back pain. No neck pain, right hip pain Integumentary: No wounds, no lesions. No rash or pruritus. No unusual bruising. No change in hair or nails. Neurologic: No aphasia. No facial droop. No change in mentation. No head injury. No headache. No paralysis. No paresthesia. Psychiatric: positive for depression. positive for anxiety. No mood swings. Endocrine: No abnormal blood sugars. positive for weight change. PHYSICAL EXAMINATION: General: 78-year-old female examined in bed in significant distress. HEENT: Head is atraumatic, normocephalic, pupils were equal round reactive to light and recommendation, extraocular muscle movement were intact, sclera nonicteric, conjunctivae were pale, mucous membranes of the mouth are somewhat dry. Neck: Supple, no JVP, normal carotid upstroke bilaterally, no lymphadenopathy. Chest: Decreased breath sounds at the bases, few rhonchi, no expiratory wheezes, no chest wall tenderness, no intercostal retractions. Heart: First heart sound is normal, second heart sounds normal there is systolic ejection murmur 2/6 located in the left sternal border Abdomen: Soft, nontender, nondistended, positive bowel sounds. Extremities: There is no edema no calf, right lower extremity is shorter and externally rotated. Status pedis +2 bilaterally. Neurologic examination: Patient is awake alert and oriented x3, cranial nerves II-12 appear grossly intact, muscle power were 4 out of 5 in upper extremities and 3 out of 5 in left lower extremity. ASSESSMENT AND PLAN: 1. Postoperative day #2 status post intramedullary long nail for right hip IT fracture. Continue current pain management as outlined by orthopedic surgery, continue DVT prophylaxis, continue the use of incentive spirometer, physical therapy evaluation, patient will likely require subacute rehabilitation. 2. Hypertension and hypertensive cardiovascular disease. Continue patient on lisinopril 5 mg orally once every day, monitor the patient blood pressure very closely. 3. Hyperlipidemia. Continue patient on atorvastatin 40 mg orally orally once every day. 4. History of diabetes mellitus type 2. Patient has been on metformin 500 mg orally twice every day as well and Soliqua 15 units after breakfast daily. We will hold Soliqua and start the patient on Levemir 15 units at bedtime along with a sliding scale insulin. 5. History of anxiety disorder. Continue patient on lorazepam 0.5 mg orally 3 times a day as needed. Continue duloxetine 60 mg in the morning and 30 mg in the evening. 6. Depressive disorder. Currently on duloxetine 60 mg in the morning and 40 mg in the evening. 7. History of White's esophagus/GERD with esophagitis. Continue patient on pantoprazole 40 mg orally once every day. 8. Fibromyalgia. Continue duloxetine 60 mg in the morning 30 mg in the evening as well as pain management. 9. History of polymyalgia rheumatica currently on prednisone 10 mg orally once every day. 10. History of osteoporosis. Was supposed to be started on Prolia injection every 6-month however the insurance declined, patient is currently on calcium 1200 mg once every day, vitamin D3 2000 unit once every day, Evista 60 mg orally once every day. 11. Spondylosis of lumbar spine. Current pain management. 12. Physical therapy evaluation. 13. connection worker consultation for discharge planning. Objective - Vital Signs Vital signs: Vital Signs Temp 98.6 F 05/18/24 00:18 Pulse 77 05/18/24 00:18 Resp 16 05/18/24 00:18 BP 160/70 05/18/24 00:18 Pulse Ox 95 05/18/24 00:18 FiO2 Intake & Output 05/17/24 05/17/24 05/18/24 06:59 18:59 06:59 Output Total 400 700 Balance -400 -700 Weight 64.864 kg Output: Urine 400 700 Straight 400 Other: Voiding Method External Catheter Bedside Commode Diaper Diaper External Catheter # Voids 1 2 - Labs CBC & Chem 7: 05/16/24 22:13 05/17/24 07:34 Labs: Abnormal Lab Results - Last 24 Hours (Table) 05/17/24 05/17/24 05/17/24 Range/Units 07:34 11:39 16:49 Glucose 127 H (70-110) mg/dL POC Glucose (mg/dL) 130 H 173 H (70-110) mg/dL Calcium 8.2 L (8.7-10.3) mg/dL Total Protein 5.3 L (6.2-8.2) g/dL Albumin 3.2 L (3.8-4.9) g/dL Albumin/Globulin Ratio 1.52 L (1.60-3.17) Ratio 05/17/24 05/18/24 Range/Units 21:02 06:25 Glucose (70-110) mg/dL POC Glucose (mg/dL) 131 H 135 H (70-110) mg/dL Calcium (8.7-10.3) mg/dL Total Protein (6.2-8.2) g/dL Albumin (3.8-4.9) g/dL Albumin/Globulin Ratio (1.60-3.17) Ratio
[2024-05-18] MEDS: polyethylene glycoL 3350 17 GM POWD.PACK PO SCH (15:45)
[2024-05-18 16:32] LABS: Glucose,Whole Blood 224 mg/dL (70-110)
[2024-05-18 20:05] LABS: Glucose,Whole Blood 140 mg/dL (70-110)
[2024-05-19 06:21] LABS: Glucose,Whole Blood 199 mg/dL (70-110)
--- NOTE | 2024-05-19 08:07 | P.DS ---
Providers Date of admission: 05/16/24 06:11 Attending physician: Zac Limon Consults: 05/16/24 06:10 Consult Physician Routine Consulting Provider: Nieves Martin Consult Reason/Comments: Medical management Do you want consulting provider notified?: Yes Primary care physician: Nieves Martin [facility] Course: HPI: The patient is a very pleasant 78-year-old female who is presently in the ER following a ground-level fall. The patient states that she fell last night resulting in right hip pain and an inability to ambulate. She was brought to the ER where x-rays show a right hip fracture. At the time of my evaluation the patient is complaining of isolated pain in her right hip. She normally lives at home with her and is a community ambulator. She denies antecedent right hip pain. On 05/16/2024 the patient underwent Operative fixation of right subtrochanteric femur fracture with long intramedullary hip screw by Dr. Limon. Patient tolerated the procedure well. Patient was transferred to orthopedic floor. Patient had postoperative pain as expected. Patient's postoperative pain has been controlled. Patient was examined at bedside this morning. Patient is resting comfortably in bed. No apparent distress. They are awake, alert and able to answer questions. On inspection the surgical hip dressings are intact, there is no drainage or strikethrough. The skin surrounding the dressing is free of erythema. There is mild swelling in the operative thigh. Operative femoral nerve function is intact. The operative calf is soft to compression. The patient is able to actively plantarflex and dorsiflex their operative ankle and toes. Their operative foot appears well perfused with capillary refill under 2 seconds. Plan: Weight-bear as tolerated on the operative extremity. Use a walker to ambulate with assistance. Leave surgical dressings in place. Physical therapy for gait training and mobilization, on 05/17/2024 was determined the patient would need transfer to rehab at time of discharge. We appreciate internal medicine for perioperative medical management. Patient may transfer when cleared by internal medicine. Disposition: Plan transfer to rehab today. Assessment: Postop day #3 Operative fixation of right subtrochanteric femur fracture with long intramedullary hip screw Right hip pain Patient Condition at Discharge: Stable Plan - Discharge Summary Discharge Rx Participant: Yes New Discharge Prescriptions: New HYDROcodone/APAP 10-325MG [Liberty 10] 1 each PO Q6H PRN #28 tab PRN Reason: Pain Aspirin 81 mg PO BID #60 tab Sennosides-Docusate Sodium [Senokot-S] 1 tab PO BID PRN #60 tablet PRN Reason: Constipation No Action metFORMIN HCL [Glucophage] 1,000 mg PO BID DULoxetine HCL [Cymbalta] 60 mg PO BID Omeprazole 20 mg PO BID lisinopriL [Zestril] 5 mg PO DAILY predniSONE 10 mg PO DAILY LORazepam [Ativan] 0.5 mg PO TID ARIPiprazole [Abilify] 2 mg PO DAILY Insulin Glargine/Lixisenatide [Soliqua 100 Unit-33 Mcg/ml Pen] 15 units SQ DAILY Discharge Medication List DULoxetine HCL [Cymbalta] 60 mg PO BID 04/19/19 [History] Omeprazole 20 mg PO BID 04/19/19 [History] metFORMIN HCL [Glucophage] 1,000 mg PO BID 04/19/19 [History] LORazepam [Ativan] 0.5 mg PO TID 05/18/23 [History] ARIPiprazole [Abilify] 2 mg PO DAILY 05/16/24 [History] Insulin Glargine/Lixisenatide [Soliqua 100 Unit-33 Mcg/ml Pen] 15 units SQ DAILY 05/16/24 [History] lisinopriL [Zestril] 5 mg PO DAILY 05/16/24 [History] predniSONE 10 mg PO DAILY 05/16/24 [History] Aspirin 81 mg PO BID #60 tab 05/18/24 [Rx] HYDROcodone/APAP 10-325MG [Liberty 10] 1 each PO Q6H PRN #28 tab 05/18/24 [Rx] Sennosides-Docusate Sodium [Senokot-S] 1 tab PO BID PRN #60 tablet 05/18/24 [Rx] Follow up Appointment(s)/Referral(s): Francisco Martin MD [REFERRING] - 1-2 days Zac Limon MD [Medical Doctor] - 2 Weeks Activity/Diet/Wound Care/Special Instructions: 1. Weight-bear as tolerated on your operative extremity unless instructed otherwise. Use a walker or other assistive device to ambulate. 2. Leave surgical dressing in place. If your dressing becomes saturated with blood, there is drainage, or the dressing becomes loose please contact the office. 3. It is okay to shower with your surgical dressing, but do not submerge in water (no hot tubs, bath's, swimming etc.) 4. Take your blood clot prevention medication as prescribed (aspirin, Eliquis, Xarelto, and Plavix are commonly prescribed medications for blood clot prevention) 5. While taking Liberty or Percocet for pain take a stool softener (Ex: Colace) and drink lots of water. 6. Keep all follow-up appointments as scheduled. You will usually be seen in 1-2 weeks following surgery. 7. Please contact the office with any questions or concerns [phone] Discharge Disposition: TRANSFER TO SNF/ECF
[2024-05-19] MEDS: FUROSEMIDE 10 MG/ML 2 ML VIAL IV STA (10:38)
[2024-05-19] MEDS: POTASSIUM CHLORIDE ER 20 MEQ TAB.ER PO STA (10:38)
--- NOTE | 2024-05-19 10:49 | XR ---
EXAMINATION TYPE: XR chest 1V DATE OF EXAM: 05/19/2024 10:41 AM COMPARISON: Chest radiographs from 05/16/2024. CLINICAL INDICATION: Female, 78 years old with history of sob; TECHNIQUE: XR chest 1V Frontal view of the chest. FINDINGS: Lungs/Pleura: There is flattening of the diaphragm with increased lucency of the lungs. No evidence o f pneumothorax, pleural effusion or focal consolidation. Pulmonary vascularity: Unremarkable. Heart/mediastinum: Cardiomediastinal silhouette is unremarkable. Musculoskeletal: No acute osseous pathology. IMPRESSION: 1. No acute cardiopulmonary disease process. 2. COPD changes. [facility], , 05/19/2024 10:47 AM
[2024-05-19 11:37] LABS: Glucose,Whole Blood 254 mg/dL (70-110)
--- NOTE | 2024-05-19 12:32 | P.PN ---
Subjective Progress Note Date: 05/19/24 HISTORY OF PRESENT ILLNESS: This is a 78-year-old female patient of [facility] with a previous medical history significant for hypertension and hypertensive cardiovascular disease, hyperlipidemia, age-related osteoporosis fibromyalgia, anxiety, history of left breast cancer status post left lumpectomy has been under the care of hematology oncology, diabetes mellitus type 2, White's esophagus, anxiety disorder, polymyalgia rheumatica, major depressive disorder, chronic pain syndrome, patient has been taking care of her since she was diagnosed with glioblastoma multiforme he has been getting radiation and chemotherapy here at [facility], apparently patient has been overwhelmed with the fact that her is critically ill, patient woke up to go to use the restroom, and stood up and all of a sudden lost her balance fell backward hit the back and ended up with significant pain in the lumbar spine as well as the right hip area, EMS was called and the patient was transported to [facility] for evaluation, and the lumbar spine x-ray that showed degenerative disc disease without evidence of fracture chest x-ray did not show evidence of acute abnormalities, right hip showed evidence of commuted right IT femoral neck fracture she was admitted under orthopedic surgery I was asked to see the patient for preoperative medical clearance and medical management. 05/17: Patient is laying down in bed in no apparent distress, she denies any chest pain, shortness of breath at this time, her pain is not well-controlled, she underwent right IT femoral neck fracture fixation with a long intramedullary nail that was done successfully, patient was instructed about usage of incentive spirometer to reduce the incidence of atelectasis and healthcare associated pneu monia, continue current pain management, physical therapy evaluation, patient will likely require subacute rehabilitation. 05/18: In bed she is crying less, she continues to to be in pain, she is taking her pain medicine, physical therapy evaluation, patient will require to go to subacute rehabilitation at this time, continue current treatment plan, follow-up with the patient very closely, we will check her labs today 05/19: Patient sitting up in bed in minimal distress, she continues to require 2 people to assist her to move from bed to chair, she will require a lot of physical therapy, patient continues to be on 2 L nasal cannula, chest x-ray showed evidence of COPD without evidence of any pulmonary disease, patient was given Lasix 20 mg IV push along with potassium supplement, we will try to keep the patient on oxygen at this point encouraged to use incentive spirometer, patient can be transferred to [facility] today I will follow-up with patient at [facility] in the next few days. REVIEW OF SYSTEMS: Constitutional: No documented fever, no chills, no night sweats. No weight change. No weakness, fatigue or lethargy. No daytime sleepiness. EENT: No headache. No blurred vision or double vision, no loss of vision. No loss of Hearing, no ringing in the ears, no dizziness. No nasal drainage or congestion. No epistaxis. No sore throat. Lungs: No shortness of breath, no cough, no sputum production. No wheezing. Reports dyspnea with activity. Cardiovascular: No chest pain, no lower extremity edema. No palpitations. No paroxysmal nocturnal dyspnea. No orthopnea. No lightheadedness or dizziness. No syncopal episodes. Abdominal: Reports abdominal pain. No nausea, vomiting. No diarrhea. No constipation. No bloody or tarry stools reports loss of appetite. Genitourinary: No dysuria, increased frequency, urgency. No urinary retention. Musculoskeletal: No myalgias. No muscle weakness, posituve for gait dysfunction, no frequent falls. positive for back pain. No neck pain, right hip pain Integumentary: No wounds, no lesions. No rash or pruritus. No unusual br uising. No change in hair or nails. Neurologic: No aphasia. No facial droop. No change in mentation. No head injury. No headache. No paralysis. No paresthesia. Psychiatric: positive for depression. positive for anxiety. No mood swings. Endocrine: No abnormal blood sugars. positive for weight change. PHYSICAL EXAMINATION: General: 78-year-old female examined in bed in significant distress. HEENT: Head is atraumatic, normocephalic, pupils were equal round reactive to light and recommendation, extraocular muscle movement were intact, sclera nonicteric, conjunctivae were pale, mucous membranes of the mouth are somewhat dry. Neck: Supple, no JVP, normal carotid upstroke bilaterally, no lymphadenopathy. Chest: Decreased breath sounds at the bases, few rhonchi, no expiratory w heezes, no chest wall tenderness, no intercostal retractions. Heart: First heart sound is normal, second heart sounds normal there is systolic ejection murmur 2/6 located in the left sternal border Abdomen: Soft, nontender, nondistended, positive bowel sounds. Extremities: There is no edema no calf, right lower extremity is shorter and externally rotated. Status pedis +2 bilaterally. Neurologic examination: Patient is awake alert and oriented x3, cranial nerves II-12 appear grossly intact, muscle power were 4 out of 5 in upper extremities and 3 out of 5 in left lower extremity. ASSESSMENT AND PLAN: 1. Postoperative day #3 status post intramedullary long nail for right hip IT fracture. Continue current pain management as outlined by orthopedic surgery, continue DVT prophylaxis, continue the use of incentive spirometer, physical therapy evaluation, patient will likely require subacute rehabilitation. 2. Hypertension and hypertensive cardiovascular disease. Continue patient on lisinopril 5 mg orally once every day, monitor the patient blood pressure very closely. 3. Hyperlipidemia. Continue patient on atorvastatin 40 mg orally orally once every day. 4. History of diabetes mellitus type 2. Patient has been on metformin 500 mg orally twice every day as well and Soliqua 15 units after breakfast daily. We will hold Soliqua and start the patient on Levemir 15 units at bedtime along with a sliding scale insulin. 5. History of anxiety disorder. Continue patient on lorazepam 0.5 mg orally 3 times a day as needed. Continue duloxetine 60 mg in the morning and 30 mg in the evening. 6. Depressive disorder. Currently on duloxetine 60 mg in the morning and 40 mg in the evening. 7. History of White's esophagus/GERD with esophagitis. Continue patient on pantoprazole 40 mg orally once every day. 8. Fibromyalgia. Continue duloxetine 60 mg in the morning 30 mg in the evening as well as pain management. 9. History of polymyalgia rheumatica currently on prednisone 10 mg orally once every day. 10. History of osteoporosis. Was supposed to be started on Prolia injection every 6-month however the insurance declined, patient is currently on calcium 1200 mg once every day, vitamin D3 2000 unit once every day, Evista 60 mg orally once every day. 11. Spondylosis of lumbar spine. Current pain management. 12. Physical therapy evaluation. 13. Patient is medically stable for discharge to [facility]. Objective - Vital Signs Vital signs: Vital Signs Temp 98.4 F 05/19/24 06:53 Pulse 96 05/19/24 06:53 Resp 18 05/19/24 06:53 BP 153/68 05/19/24 06:53 Pulse Ox 86 L 05/19/24 09:27 FiO2 Intake & Output 05/18/24 05/19/24 05/19/24 18:59 06:59 18:59 Output Total 950 Balance -950 Output: Urine 950 Other: Voiding Method Diaper Diaper External Catheter External Catheter # Voids 3 - Labs CBC & Chem 7: 05/18/24 06:57 05/18/24 06:57 Labs: Abnormal Lab Results - Last 24 Hours (Table) 05/18/24 05/18/24 05/18/24 Range/Units 06:57 11:50 16:30 WBC 11.85 H (4.50-10.00) X 10*3/uL RBC 3.47 L (4.10-5.20) X 10*6/uL Hgb 9.3 L (12.0-15.0) g/dL Hct 31.4 L (37.2-46.3) % MCH 26.8 L (27.0-32.0) pg MCHC 29.6 L (32.0-37.0) g/dL RDW 15.4 H (11.5-14.5) % Immature Gran # 0.08 H (0.00-0.04) X 10*3/uL Neutrophils # 8.65 H (1.80-7.70) X 10*3/uL Monocytes # 1.07 H (0.20-1.00) X 10*3/uL POC Glucose (mg/dL) 173 H 224 H (70-110) mg/dL 05/18/24 05/19/24 Range/Units 20:04 06:19 WBC (4.50-10.00) X 10*3/uL RBC (4.10-5.20) X 10*6/uL Hgb (12.0-15.0) g/dL Hct (37.2-46.3) % MCH (27.0-32.0) pg MCHC (32.0-37.0) g/dL RDW (11.5-14.5) % Immature Gran # (0.00-0.04) X 10*3/uL Neutrophils # (1.80-7.70) X 10*3/uL Monocytes # (0.20-1.00) X 10*3/uL POC Glucose (mg/dL) 140 H 199 H (70-110) mg/dL
[2024-05-19 16:35] LABS: Glucose,Whole Blood 203 mg/dL (70-110)
[2024-05-19 21:20] LABS: Glucose,Whole Blood 141 mg/dL (70-110)
[2024-05-20 06:23] LABS: Glucose,Whole Blood 151 mg/dL (70-110)
--- NOTE | 2024-05-20 09:50 | P.PN ---
Subjective Progress Note Date: 05/20/24 HISTORY OF PRESENT ILLNESS: This is a 78-year-old female patient of [facility] with a previous medical history significant for hypertension and hypertensive cardiovascular disease, hyperlipidemia, age-related osteoporosis fibromyalgia, anxiety, history of left breast cancer status post left lumpectomy has been under the care of hematology oncology, diabetes mellitus type 2, White's esophagus, anxiety disorder, polymyalgia rheumatica, major depressive disorder, chronic pain syndrome, patient has been taking care of her since she was diagnosed with glioblastoma multiforme he has been getting radiation and chemotherapy here at [facility], apparently patient has been overwhelmed with the fact that her is critically ill, patient woke up to go to use the restroom, and stood up and all of a sudden lost her balance fell backward hit the back and ended up with significant pain in the lumbar spine as well as the right hip area, EMS was called and the patient was transported to [facility] for evaluation, and the lumbar spine x-ray that showed degenerative disc disease without evidence of fracture chest x-ray did not show evidence of acute abnormalities, right hip showed evidence of commuted right IT femoral neck fracture she was admitted under orthopedic surgery I was asked to see the patient for preoperative medical clearance and medical management. 05/17: Patient is laying down in bed in no apparent distress, she denies any chest pain, shortness of breath at this time, her pain is not well-controlled, she underwent right IT femoral neck fracture fixation with a long intramedullary nail that was done successfully, patient was instructed about usage of incentive spirometer to reduce the incidence of atelectasis and healthcare associated pneu monia, continue current pain management, physical therapy evaluation, patient will likely require subacute rehabilitation. 05/18: In bed she is crying less, she continues to to be in pain, she is taking her pain medicine, physical therapy evaluation, patient will require to go to subacute rehabilitation at this time, continue current treatment plan, follow-up with the patient very closely, we will check her labs today 05/19: Patient sitting up in bed in minimal distress, she continues to require 2 people to assist her to move from bed to chair, she will require a lot of physical therapy, patient continues to be on 2 L nasal cannula, chest x-ray showed evidence of COPD without evidence of any pulmonary disease, patient was given Lasix 20 mg IV push along with potassium supplement, we will try to keep the patient on oxygen at this point encouraged to use incentive spirometer, patient can be transferred to [facility] today I will follow-up with patient at [facility] in the next few days. 05/20: Patient sitting up in a recliner chair in no apparent distress, she has no chest pain, shortness of breath, I took her off of the oxygen her oxygenation ranged between 97 and 100% on room air, discontinue oxygenation at this time follow-up with the patient very closely continue physical therapy and Occupational Therapy evaluation, patient is medically stable to be discharged to [facility]. REVIEW OF SYSTEMS: Constitutional: No documented fever, no chills, no night sweats. No weight change. No weakness, fatigue or lethargy. No daytime sleepiness. EENT: No headache. No blurred vision or double vision, no loss of vision. No loss of Hearing, no ringing in the ears, no dizziness. No nasal drainage or congestion. No epistaxis. No sore throat. Lungs: No shortness of breath, no cough, no sputum production. No wheezing. Reports dyspnea with activity. Cardiovascular: No chest pain, no lower extremity edema. No palpitations. No paroxysmal nocturnal dyspnea. No orthopnea. No lightheadedness or dizziness. No syncopal episodes. Abdominal: Reports abdominal pain. No nausea, vomiting. No diarrhea. No constipation. No bloody or tarry stools reports loss of appetite. Genitourinary: No dysuria, increased frequency, urgency. No urinary retention. Musculoskeletal: No myalgias. No muscle weakness, posituve for gait dysfunction, no frequent falls. positive for back pain. No neck pain, right hip pain Integumentary: No wounds, no lesions. No rash or pruritus. No unusual bruis ing. No change in hair or nails. Neurologic: No aphasia. No facial droop. No change in mentation. No head injury. No headache. No paralysis. No paresthesia. Psychiatric: positive for depression. positive for anxiety. No mood swings. Endocrine: No abnormal blood sugars. positive for weight change. PHYSICAL EXAMINATION: General: 78-year-old female examined in bed in significant distress. HEENT: Head is atraumatic, normocephalic, pupils were equal round reactive to light and recommendation, extraocular muscle movement were intact, sclera nonicteric, conjunctivae were pale, mucous membranes of the mouth are somewhat dry. Neck: Supple, no JVP, normal carotid upstroke bilaterally, no lymphadenopathy. Chest: Decreased breath sounds at the bases, few rhonchi, no expiratory whee zes, no chest wall tenderness, no intercostal retractions. Heart: First heart sound is normal, second heart sounds normal there is systolic ejection murmur 2/6 located in the left sternal border Abdomen: Soft, nontender, nondistended, positive bowel sounds. Extremities: There is no edema no calf, right lower extremity is shorter and externally rotated. Status pedis +2 bilaterally. Neurologic examination: Patient is awake alert and oriented x3, cranial nerves II-12 appear grossly intact, muscle power were 4 out of 5 in upper extremities and 4 out of 5 in bilateral lower extremities ASSESSMENT AND PLAN: 1. Postoperative day #4 status post intramedullary long nail for right hip IT fracture. Pain is much better today, continue aspirin 80 mg orally twice every day for 30 days, follow-up with the patient very closely, patient will work with physical therapy and Occupational Therapy likely will need to go for subacute rehabilitation at [facility]. 2. Hypertension and hypertensive cardiovascular disease. Continue patient on lisinopril 5 mg orally once every day, monitor the patient blood pressure very closely. 3. Hyperlipidemia. Continue patient on atorvastatin 40 mg orally orally once every day. 4. History of diabetes mellitus type 2. Patient has been on metformin 500 mg orally twice every day as well and Soliqua 15 units after breakfast daily. We will hold Soliqua and start the patient on Levemir 15 units at bedtime along with a sliding scale insulin. 5. History of anxiety disorder. Continue patient on lorazepam 0.5 mg orally 3 times a day as needed. Continue duloxetine 60 mg in the morning and 30 mg in the evening. 6. Depressive disorder. Currently on duloxetine 60 mg in the morning and 40 mg in the evening. 7. History of White's esophagus/GERD with esophagitis. Continue patient on pantoprazole 40 mg orally once every day. 8. Fibromyalgia. Continue duloxetine 60 mg in the morning 30 mg in the evening as well as pain management. 9. History of polymyalgia rheumatica currently on prednisone 10 mg orally once every day. 10. History of osteoporosis. Was supposed to be started on Prolia injection every 6-month however the insurance declined, patient is currently on calcium 1200 mg once every day, vitamin D3 2000 unit once every day, Evista 60 mg orally once every day. 11. Spondylosis of lumbar spine. Current pain management. 12. Physical therapy evaluation. 13. Patient is medically stable for discharge to [facility]. Objective - Vital Signs Vital signs: Vital Signs Temp 98.8 F 05/20/24 01:35 Pulse 75 05/20/24 01:35 Resp 18 05/20/24 01:35 BP 149/69 05/20/24 01:35 Pulse Ox 93 L 05/20/24 01:35 FiO2 Intake & Output 05/19/24 05/20/24 05/20/24 18:59 06:59 18:59 Intake Total 420 Output Total 1200 500 Balance -1200 -80 Intake: Oral 420 Output: Urine 1200 500 Other: Voiding Method Diaper Diaper External Catheter External Catheter - Labs CBC & Chem 7: 05/18/24 06:57 05/18/24 06:57 Labs: Abnormal Lab Results - Last 24 Hours (Table) 05/19/24 05/19/24 05/19/24 Range/Units 11:36 16:33 21:19 POC Glucose (mg/dL) 254 H 203 H 141 H (70-110) mg/dL 05/20/24 Range/Units 06:22 POC Glucose (mg/dL) 151 H (70-110) mg/dL
[2024-05-20 12:00] LABS: Glucose,Whole Blood 204 mg/dL (70-110)
--- NOTE | 2024-05-20 15:51 | P.PN ---
Subjective Progress Note Date: 05/20/24 No acute events overnight per patient. Patient states their right hip pain has been controlled with pain medication. Objective - Vital Signs Vital signs: Vital Signs Temp 98 F 05/20/24 07:19 Pulse 73 05/20/24 07:19 Resp 18 05/20/24 07:19 BP 154/71 05/20/24 07:19 Pulse Ox 92 L 05/20/24 10:10 FiO2 Intake & Output 05/19/24 05/20/24 05/20/24 18:59 06:59 18:59 Intake Total 420 Output Total 1200 500 Balance -1200 -80 Intake: Oral 420 Output: Urine 1200 500 Other: Voiding Method Diaper Diaper External Catheter External Catheter - Exam Patient was examined at bedside. Patient is resting comfortably in up in chair. No apparent distress. They are awake, alert and able to answer questions. On inspection the surgical hip dressings are intact, there is no drainage or strikethrough. The skin surrounding the dressing is free of erythema. There is mild swelling in the operative thigh. Operative femoral nerve function is intact. The operative calf is soft to compression. The patient is able to actively plantarflex and dorsiflex their operative ankle and toes. Their operative foot appears well perfused with capillary refill under 2 seconds. - Labs CBC & Chem 7: 05/18/24 06:57 05/18/24 06:57 Labs: Abnormal Lab Results - Last 24 Hours (Table) 05/19/24 05/19/24 05/20/24 Range/Units 16:33 21:19 06:22 POC Glucose (mg/dL) 203 H 141 H 151 H (70-110) mg/dL 05/20/24 Range/Units 11:58 POC Glucose (mg/dL) 204 H (70-110) mg/dL Assessment and Plan Assessment: Postop day #4 Operative fixation of right subtrochanteric femur fracture with long intramedullary hip screw Right hip pain Plan: Weight-bear as tolerated on the operative extremity. Use a walker to ambulate with assistance. Leave surgical dressings in place. Physical therapy for gait training and mobilization, on 05/17/2024 was determined the patient would need transfer to rehab at time of discharge. We appreciate internal medicine for perioperative medical management. Patient was unable to transfer to rehab due to authorization requirements. Disposition: Plan transfer to rehab at time of discharge when authorization obtained.
[2024-05-20 16:19] LABS: Glucose,Whole Blood 211 mg/dL (70-110)
[2024-05-20 21:02] LABS: Glucose,Whole Blood 252 mg/dL (70-110)
[2024-05-21 06:13] LABS: Glucose,Whole Blood 173 mg/dL (70-110)
--- NOTE | 2024-05-21 08:10 | P.PN ---
Subjective Progress Note Date: 05/21/24 No acute events overnight per nursing. According to the patient she had an episode yesterday where she had increased pain in her hip but is much better now. She is said she has been up in the chair. She does note that overall her family has many things going on including her being diagnosed with brain cancer. She is very upset about all of this. Objective - Vital Signs Vital signs: Vital Signs Temp 97.8 F 05/21/24 01:53 Pulse 62 05/21/24 01:53 Resp 15 05/21/24 01:53 BP 180/74 05/21/24 01:53 Pulse Ox 92 L 05/21/24 01:53 FiO2 Intake & Output 05/20/24 05/21/24 05/21/24 18:59 06:59 18:59 Intake Total 540 Balance 540 Intake: Oral 540 Other: Voiding Method Diaper External Catheter # Voids 0 - Exam Patient resting comfortably in bed. She is eating her breakfast. She is alert and able to answer questions. A focused exam of the right lower extremity was conducted. Dressings over the hip and distal thigh are intact with no drainage or strikethrough. Her thigh is soft. She can actively plantarflex and do rsiflex her ankle and her toes. - Labs CBC & Chem 7: 05/18/24 06:57 05/18/24 06:57 Labs: Abnormal Lab Results - Last 24 Hours (Table) 05/20/24 05/20/24 05/20/24 Range/Units 11:58 16:17 21:00 POC Glucose (mg/dL) 204 H 211 H 252 H (70-110) mg/dL 05/21/24 Range/Units 06:11 POC Glucose (mg/dL) 173 H (70-110) mg/dL Assessment and Plan Assessment: Postop day #5 status post long intramedullary hip screw for displaced reverse oblique subtrochanteric femur fracture Plan: Continue attempts at mobilization out of bed into a chair with therapy. The patient can weight-bear as tolerated on her right leg. Leave surgical dressings in place. The patient seems more agreeable to working with therapy. Discharge planning is in progress. Due to the patient initially refusing therapy we have had some issues getting this approved. Hopefully she can discharge to rehab on Thursday.
[2024-05-21 11:41] LABS: Glucose,Whole Blood 197 mg/dL (70-110)
[2024-05-21] MEDS: HYDROcodone/APAP 5-325MG 1 EACH TAB PO PRN (12:06)
[2024-05-21 17:22] LABS: Glucose,Whole Blood 215 mg/dL (70-110)
--- NOTE | 2024-05-21 20:13 | P.PN ---
Subjective Progress Note Date: 05/21/24 Patient evaluated today on the medical floor. She is postoperative day #5 right hip IM nailing. She reports feeling worse than yesterday and states that her right leg is throbbing at the knee. Continues to utilize IV and oral pain medications. Her discharge has gone to an appeals for rehab and social work to follow up on Thursday. Review of Systems Constitutional: Denied any fatigue denied any fever. Cardio vascular: denied any chest pain, palpitations Gastrointestinal: denied any nausea, vomiting, diarrhea Pulmonary: Denied any shortness of breath cough Neurologic denied any new focal deficits All inpatient medications were reviewed and appropriate changes in these medications as dictated in the interval history and assessment and plan. PHYSICAL EXAMINATION: GENERAL: The patient is alert and oriented x3, not in any acute distress. Well developed, well nourished. HEENT: Pupils are round and equally reacting to light. EOMI. No scleral icterus. No conjunctival pallor. Normocephalic, atraumatic. No pharyngeal erythema. No thyromegaly. CARDIOVASCULAR: S1 and S2 present. No murmurs, rubs, or gallops. PULMONARY: Chest is clear to auscultation, no wheezing or crackles. ABDOMEN: Soft, nontender, nondistended, normoactive bowel sounds. No palpable organomegaly. MUSCULOSKELETAL: No joint swelling or deformity. Right hip surgical dressing intact. EXTREMITIES: No cyanosis, clubbing, or pedal edema. NEUROLOGICAL: Gross neurological examination did not reveal any focal deficits. Generalized weakness SKIN: No rashes. Assessment and plan 1. Postoperative day #5 status post intramedullary long nail for right hip IT fracture. Pain is much better today, continue aspirin 80 mg orally twice every day for 30 days, follow-up with the patient very closely, patient will work with physical therapy and Occupational Therapy likely will need to go for subacute rehabilitation at [facility]. 2. Hypertension and hypertensive cardiovascular disease. Continue patient on lisinopril 5 mg orally once every day, monitor the patient blood pressure very closely. 3. Hyperlipidemia. Continue patient on atorvastatin 40 mg orally orally once every day. 4. History of diabetes mellitus type 2. Patient has been on metformin 500 mg orally twice every day as well and Soliqua 15 units after breakfast daily. We will hold Soliqua and start the patient on Levemir 15 units at bedtime along wit h a sliding scale insulin. 5. History of anxiety disorder. Continue patient on lorazepam 0.5 mg orally 3 times a day as needed. Continue duloxetine 60 mg in the morning and 30 mg in the evening. 6. Depressive disorder. Currently on duloxetine 60 mg in the morning and 40 mg in the evening. 7. History of White's esophagus/GERD with esophagitis. Continue patient on pantoprazole 40 mg orally once every day. 8. Fibromyalgia. Continue duloxetine 60 mg in the morning 30 mg in the evening as well as pain management. 9. History of polymyalgia rheumatica currently on prednisone 10 mg orally once every day. 10. History of osteoporosis. Was supposed to be started on Prolia injection every 6-month however the insurance declined, patient is currently on calcium 1200 mg once every day, vitamin D3 2000 unit once every day, Evista 60 mg orally once every day. 11. Spondylosis of lumbar spine. Current pain management. 12. Physical therapy evaluation. 13. Patient is medically stable for discharge to [facility]. This has gone to an appeals. social work to follow up on Thursday. The impression and plan of care has been dictated by Cece Holman, Nurse Practitioner as directed. Dr. Tien MD I have performed a history and physical examination and medical decision making of this patient, discussed the same with the dictator, and agree with the dictators assessment and plan as written, documented as a scribe. Based on total visit time, I have performed more than 50% of this visit. Objective - Vital Signs Vital signs: Vital Signs Temp 98.2 F 05/21/24 13:57 Pulse 84 05/21/24 13:57 Resp 18 05/21/24 13:57 BP 135/57 05/21/24 13:57 Pulse Ox 96 05/21/24 13:57 FiO2 Intake & Output 05/21/24 05/21/24 05/22/24 06:59 18:59 06:59 Intake Total 540 Output Total 300 Balance 540 -300 Intake: Oral 540 Output: Urine 300 Other: # Voids 3 - Labs CBC & Chem 7: 05/18/24 06:57 05/18/24 06:57 Labs: Abnormal Lab Results - Last 24 Hours (Table) 05/20/24 05/21/24 05/21/24 Range/Units 21:00 06:11 11:40 POC Glucose (mg/dL) 252 H 173 H 197 H (70-110) mg/dL 05/21/24 Range/Units 17:20 POC Glucose (mg/dL) 215 H (70-110) mg/dL Assessment and Plan Time with Patient: Less than 30
[2024-05-21 20:56] LABS: Glucose,Whole Blood 184 mg/dL (70-110)
[2024-05-22 06:32] LABS: Glucose,Whole Blood 157 mg/dL (70-110)
--- NOTE | 2024-05-22 08:59 | P.PN ---
Subjective Patient was seen this morning at bedside. She continues to complain of pain throughout her leg and her entire body. Per nursing she has been hesitant and resistant to mobilizing out of bed to a chair. Objective - Vital Signs Vital signs: Vital Signs Temp 97.8 F 05/22/24 02:41 Pulse 74 05/22/24 02:41 Resp 17 05/22/24 02:41 BP 167/68 05/22/24 02:41 Pulse Ox 96 05/22/24 02:41 FiO2 Intake & Output 05/21/24 05/22/24 05/22/24 18:59 06:59 18:59 Output Total 300 Balance -300 Output: Urine 300 Other: # Voids 3 1 - Exam The patient is resting in bed. She is alert and able to answer questions. Dressings over the right hip and thigh are intact with minimal drainage or strikethrough. She has mild swelling throughout her leg. She has flexion contractures in both knees. Was able to actively plantarflex and dorsiflex both of her ankles and toes. - Labs CBC & Chem 7: 05/18/24 06:57 05/18/24 06:57 Labs: Abnormal Lab Results - Last 24 Hours (Table) 05/21/24 05/21/24 05/21/24 Range/Units 11:40 17:20 20:55 POC Glucose (mg/dL) 197 H 215 H 184 H (70-110) mg/dL 05/22/24 Range/Units 06:30 POC Glucose (mg/dL) 157 H (70-110) mg/dL Assessment and Plan Assessment: POD #6 status post right long gamma nail for subtrochanteric femur fracture Multiple medical problems Plan: Continue treatment as outlined previously. I stressed the importance of the patient of attempts at mobilization out of bed to chair to prevent issues with prolonged bedrest. She seems agreeable to trying to mobilize into a chair. Amando guajardo planning on discharge hopefully Thursday or Thursday. Appreciate internal medicine's assistance with perioperative medical management.
[2024-05-22 10:10] LABS: BUN/Creat Ratio 20.12 Ratio (12.00-20.00); Blood Urea Nitrogen 16.1 mg/dL (9.0-27.0); Calcium 8.8 mg/dL (8.7-10.3); Carbon Dioxide 29.1 mmol/L (21.6-31.8); Chloride 102 mmol/L (96-109); Glucose 161 mg/dL (70-110); Potassium 4.5 mmol/L (3.5-5.5); Sodium 141 mmol/L (135-145)
[2024-05-22 12:03] LABS: Glucose,Whole Blood 192 mg/dL (70-110)
--- NOTE | 2024-05-22 12:45 | P.PN ---
Subjective Progress Note Date: 05/22/24 Patient evaluated today on the medical floor. She is postoperative day #5 right hip IM nailing. She reports feeling worse than yesterday and states that her right leg is throbbing at the knee. Continues to utilize IV and oral pain medications. Her discharge has gone to an appeals for rehab and social work to follow up on Thursday. 05/22/2024 Patient is evaluated in follow-up on the medical floor. She is quite tearful and discussing her social issues including the need to be at home to care for her and feels like she does not have much family support. Patient is indecisive about going to rehab at this point although she has not been able to ambulate postsurgically. She is now postoperative day #6 right hip IM nailing. Her pain is mildly improved today but she is continuing to use IV and oral pain medications. Review of Systems Constitutional: Denied any fatigue denied any fever. Cardio vascular: denied any chest pain, palpitations Gastrointestinal: denied any nausea, vomiting, diarrhea Pulmonary: Denied any shortness of breath cough Neurologic denied any new focal deficits All inpatient medications were reviewed and appropriate changes in these medications as dictated in the interval history and assessment and plan. PHYSICAL EXAMINATION: GENERAL: The patient is alert and oriented x3, not in any acute distress. Well developed, well nourished. HEENT: Pupils are round and equally reacting to light. EOMI. No scleral icterus. No conjunctival pallor. Normocephalic, atraumatic. No pharyngeal erythema. No thyromegaly. CARDIOVASCULAR: S1 and S2 present. No murmurs, rubs, or gallops. PULMONARY: Chest is clear to auscultation, no wheezing or crackles. ABDOMEN: Soft, nontender, nondistended, normoactive bowel sounds. No palpable organomegaly. MUSCULOSKELETAL: No joint swelling or deformity. Right hip surgical dressing intact. EXTREMITIES: No cyanosis, clubbing, or pedal edema. NEUROLOGICAL: Gross neurological examination did not reveal any focal deficits. Generalized weakness SKIN: No rashes. Assessment and plan 1. Postoperative day #5 status post intramedullary long nail for right hip IT fracture. Pain is much better today, continue aspirin 80 mg orally twice every day for 30 days, follow-up with the patient very closely, patient will work with physical therapy and Occupational Therapy likely will need to go for subacute rehabilitation at [facility]. 2. Hypertension and hypertensive cardiovascular disease. Continue patient on lisinopril 5 mg orally once every day, monitor the patient blood pressure very closely. 3. Hyperlipidemia. Continue patient on atorvastatin 40 mg orally orally once every day. 4. History of diabetes mellitus type 2. Patient has been on metformin 500 mg orally twice every day as well and Soliqua 15 units after breakfast daily. We will hold Soliqua and start the patient on Levemir 15 units at bedtime along wit h a sliding scale insulin. 5. History of anxiety disorder. Continue patient on lorazepam 0.5 mg orally 3 times a day as needed. Continue duloxetine 60 mg in the morning and 30 mg in the evening. 6. Depressive disorder. Currently on duloxetine 60 mg in the morning and 40 mg in the evening. 7. History of White's esophagus/GERD with esophagitis. Continue patient on pantoprazole 40 mg orally once every day. 8. Fibromyalgia. Continue duloxetine 60 mg twice daily 9. History of polymyalgia rheumatica currently on prednisone 10 mg orally once every day which is currently held. 10. History of osteoporosis. Was supposed to be started on Prolia injection every 6-month however the insurance declined, patient is currently on calcium 1200 mg once every day, vitamin D3 2000 unit once every day, Evista 60 mg orally once every day. 11. Spondylosis of lumbar spine. Current pain management. 12. Physical therapy evaluation. 13. Patient is medically stable for discharge to [facility]. This has gone to an appeals. social work to follow up on Thursday. Patient would benefit from outside resources as currently she is not able to drive, her doesn't drive and she is the primary caregiver for him. She is expressing concerns about being overwhelmed and unsure what her discharge plan should be and feels she needs to discharge home. The impression and plan of care has been dictated by Cece Holman Nurse Practitioner as directed. Dr. Tien MD I have performed a history and physical examination and medical decision making of this patient, discussed the same with the dictator, and agree with the dictators assessment and plan as written, documented as a scribe. Based on total visit time, I have performed more than 50% of this visit. Objective - Vital Signs Vital signs: Vital Signs Temp 97.8 F 05/22/24 02:41 Pulse 74 05/22/24 02:41 Resp 17 05/22/24 02:41 BP 167/68 05/22/24 02:41 Pulse Ox 96 05/22/24 02:41 FiO2 Intake & Output 05/21/24 05/22/24 05/22/24 18:59 06:59 18:59 Output Total 300 Balance -300 Output: Urine 300 Other: # Voids 3 1 - Labs CBC & Chem 7: 05/18/24 06:57 05/22/24 02:42 Labs: Abnormal Lab Results - Last 24 Hours (Table) 05/21/24 05/21/24 05/22/24 Range/Units 17:20 20:55 02:42 BUN/Creatinine Ratio 20.12 H (12.00-20.00) Ratio Glucose 161 H (70-110) mg/dL POC Glucose (mg/dL) 215 H 184 H (70-110) mg/dL 05/22/24 05/22/24 Range/Units 06:30 12:02 BUN/Creatinine Ratio (12.00-20.00) Ratio Glucose (70-110) mg/dL POC Glucose (mg/dL) 157 H 192 H (70-110) mg/dL Assessment and Plan Time with Patient: Less than 30
[2024-05-22] MEDS: lisinopriL 5 MG TAB PO SCH (13:05)
[2024-05-22] MEDS: ARIPiprazole 2 MG TAB PO SCH (14:04)
[2024-05-22] MEDS: LORazepam 0.5 MG TAB PO SCH (15:44)
[2024-05-22 16:43] LABS: Glucose,Whole Blood 219 mg/dL (70-110)
[2024-05-22 20:22] LABS: Glucose,Whole Blood 132 mg/dL (70-110)
[2024-05-22] MEDS: INSULIN DETEMIR (LEVEMIR) 100 UNIT/ML SYR SQ SCH (21:01)
[2024-05-22] MEDS: DULoxetine HCL 60 MG CAPSULE.DR PO SCH (21:01)
[2024-05-23 06:08] LABS: Glucose,Whole Blood 96 mg/dL (70-110)
[2024-05-23] MEDS: PANTOPRAZOLE 40 MG TABLET PO SCH (06:10)
--- NOTE | 2024-05-23 08:09 | P.PN ---
Subjective Progress Note Date: 05/23/24 No acute events overnight per patient. Patient states their right hip pain has been controlled with pain medication. Patient states they have been up to the bathroom with assistance. Objective - Vital Signs Vital signs: Vital Signs Temp 97.1 F L 05/23/24 07:26 Pulse 74 05/23/24 07:26 Resp 18 05/23/24 07:26 BP 162/68 05/23/24 07:26 Pulse Ox 91 L 05/23/24 07:26 FiO2 Intake & Output 05/22/24 05/23/24 05/23/24 18:59 06:59 18:59 Other: # Voids 5 1 - Exam Patient was examined at bedside. Patient is resting comfortably in up in bed. No apparent distress. They are awake, alert and able to answer questions. On inspection the surgical hip dressings are intact, there is no drainage, small spot of strikethrough. The skin surrounding the dressing is free of erythema. There is mild swelling in the operative thigh. Operative femoral nerve function is intact. The operative calf is soft to compression. The patient is able to actively plantarflex and d orsiflex their operative ankle and toes. Their operative foot appears well perfused with capillary refill under 2 seconds. - Labs CBC & Chem 7: 05/18/24 06:57 05/22/24 02:42 Labs: Abnormal Lab Results - Last 24 Hours (Table) 05/22/24 05/22/24 05/22/24 Range/Units 02:42 12:02 16:41 BUN/Creatinine Ratio 20.12 H (12.00-20.00) Ratio Glucose 161 H (70-110) mg/dL POC Glucose (mg/dL) 192 H 219 H (70-110) mg/dL 05/22/24 Range/Units 20:20 BUN/Creatinine Ratio (12.00-20.00) Ratio Glucose (70-110) mg/dL POC Glucose (mg/dL) 132 H (70-110) mg/dL Assessment and Plan Assessment: Postop 05/16/2024 Operative fixation of right subtrochanteric femur fracture with long intramedullary hip screw Right hip pain Plan: Weight-bear as tolerated on the operative extremity. Use a walker to ambulate with assistance. Leave surgical dressings in place. We appreciate internal medicine for perioperative medical management. Patient was unable to transfer to rehab due to authorization requirements. Physical therapy for gait training and mobilization this morning. Disposition: Pending physical therapy, anticipate staying stay until tomorrow.
[2024-05-23 10:46] LABS: Glucose,Whole Blood 140 mg/dL (70-110)
--- NOTE | 2024-05-23 13:00 | P.PN ---
Subjective Progress Note Date: 05/23/24 HISTORY OF PRESENT ILLNESS: This is a 78-year-old female patient of [facility] with a previous medical history significant for hypertension and hypertensive cardiovascular disease, hyperlipidemia, age-related osteoporosis fibromyalgia, anxiety, history of left breast cancer status post left lumpectomy has been under the care of hematology oncology, diabetes mellitus type 2, White's esophagus, anxiety disorder, polymyalgia rheumatica, major depressive disorder, chronic pain syndrome, patient has been taking care of her since she was diagnosed with glioblastoma multiforme he has been getting radiation and chemotherapy here at [facility], apparently patient has been overwhelmed with the fact that her is critically ill, patient woke up to go to use the restroom, and stood up and all of a sudden lost her balance fell backward hit the back and ended up with significant pain in the lumbar spine as well as the right hip area, EMS was called and the patient was transported to [facility] for evaluation, and the lumbar spine x-ray that showed degenerative disc disease without evidence of fracture chest x-ray did not show evidence of acute abnormalities, right hip showed evidence of commuted right IT femoral neck fracture she was admitted under orthopedic surgery I was asked to see the patient for preoperative medical clearance and medical management. 05/17: Patient is laying down in bed in no apparent distress, she denies any chest pain, shortness of breath at this time, her pain is not well-controlled, she underwent right IT femoral neck fracture fixation with a long intramedullary nail that was done successfully, patient was instructed about usage of incentive spirometer to reduce the incidence of atelectasis and healthcare associated pneu monia, continue current pain management, physical therapy evaluation, patient will likely require subacute rehabilitation. 05/18: In bed she is crying less, she continues to to be in pain, she is taking her pain medicine, physical therapy evaluation, patient will require to go to subacute rehabilitation at this time, continue current treatment plan, follow-up with the patient very closely, we will check her labs today 05/19: Patient sitting up in bed in minimal distress, she continues to require 2 people to assist her to move from bed to chair, she will require a lot of physical therapy, patient continues to be on 2 L nasal cannula, chest x-ray showed evidence of COPD without evidence of any pulmonary disease, patient was given Lasix 20 mg IV push along with potassium supplement, we will try to keep the patient on oxygen at this point encouraged to use incentive spirometer, patient can be transferred to [facility] today I will follow-up with patient at [facility] in the next few days. 05/20: Patient sitting up in a recliner chair in no apparent distress, she has no chest pain, shortness of breath, I took her off of the oxygen her oxygenation ranged between 97 and 100% on room air, discontinue oxygenation at this time follow-up with the patient very closely continue physical therapy and Occupational Therapy evaluation, patient is medically stable to be discharged to [facility]. 05/21:Patient evaluated today on the medical floor. She is postoperative day #5 right hip IM nailing. She reports feeling worse than yesterday and states that her right leg is throbbing at the knee. Continues to utilize IV and oral pain medications. Her discharge has gone to an appeals for rehab and social work to follow up on Thursday. 05/22:Patient is evaluated in follow-up on the medical floor. She is quite tearful and discussing her social issues including the need to be at home to care for her and feels like she does not have much family support. Patient is indecisive about going to rehab at this point although she has not been able to ambulate postsurgically. She is now postoperative day #6 right hip IM nailing. Her pain is mildly improved today but she is continuing to use IV and oral pain medications. 05/23: Patient remains in the hospital awaiting the final decision of her [employer] to be transferred to [facility] patient does not appear to need tremendous amount of help and she is down to get IV able to go home the way she is after surgery, especially with her who is fighting with glioblastoma multiforme and he is currently receiving radiation and chemotherapy. I would definitely advise for the patient to go to subacute rehabilitation otherwise her outcome will not be good REVIEW OF SYSTEMS: Constitutional: No documented fever, no chills, no night sweats. No weight change. No weakness, fatigue or lethargy. No daytime sleepiness. EENT: No headache. No blurred vision or double vision, no loss of vision. No loss of Hearing, no ringing in the ears, no dizziness. No nasal drainage or congestion. No epistaxis. No sore throat. Lungs: No shortness of breath, no cough, no sputum production. No wheezing. Reports dyspnea with activity. Cardiovascular: No chest pain, no lower extremity edema. No palpitations. No paroxysmal nocturnal dyspnea. No orthopnea. No lightheadedness or dizziness. No syncopal episodes. Abdominal: Reports no abdominal pain. No nausea, vomiting. No diarrhea. constipation. No bloody or tarry stools reports loss of appetite. Genitourinary: No dysuria, increased frequency, urgency. No urinary retention. Musculoskeletal: No myalgias. No muscle weakness, posituve for gait dysfunction, no frequent falls. positive for back pain. No neck pain, right hip pain Integumentary: Right hip wound is covered with a dressing drainage, no lesions. No rash or pruritus. No unusual bruising. No change in hair or nails. Neurologic: No aphasia. No facial droop. No change in mentation. No head injury. No headache. No paralysis. No paresthesia. Psychiatric: positive for depression. positive for anxiety. No mood swings. Endocrine: No abnormal blood sugars. positive for weight change. PHYSICAL EXAMINATION: General: 78-year-old female sitting up in the recliner chair no distress HEENT: Head is atraumatic, normocephalic, pupils were equal round reactive to light and recommendation, extraocular muscle movement were intact, sclera nonicteric, conjunctivae were pale, mucous membranes of the mouth are somewhat dry. Neck: Supple, no JVP, normal carotid upstroke bilaterally, no lymphadenopathy. Chest: Decreased breath sounds at the bases, few rhonchi, no expiratory wheezes, no chest wall tenderness, no intercostal retractions. Heart: First heart sound is normal, second heart sounds normal there is systolic ejection murmur 2/6 located in the left sternal border Abdomen: Soft, nontender, nondistended, positive bowel sounds. Extremities: No edema, no calf tenderness, incision site appears to be clean with no drainage dressing is intact Neurologic examination: Patient is awake alert and oriented x3, cranial nerves II-12 appear grossly intact, muscle power were 4 out of 5 in upper extremities and 3 out of 5 in bilateral lower extremities ASSESSMENT AND PLAN: 1. Postoperative day #7 status post intramedullary long nail for right hip IT fracture. Pain is much better today, continue aspirin 80 mg orally twice every day for 30 days, follow-up with the patient very closely, patient will work with physical therapy and Occupational Therapy likely will need to go for subacute rehabilitation at [facility]. 2. Hypertension and hypertensive cardiovascular disease. Continue patient on lisinopril 5 mg orally once every day, monitor the patient blood pressure very closely. 3. Hyperlipidemia. Continue patient on atorvastatin 40 mg orally orally once every day. 4. History of diabetes mellitus type 2. Patient has been on metformin 500 mg orally twice every day as well and Soliqua 15 units after breakfast daily. We will hold Soliqua and start the patient on Levemir 15 units at bedtime along with a sliding scale insulin. 5. History of anxiety disorder. Continue patient on lorazepam 0.5 mg orally 3 times a day as needed. Continue duloxetine 60 mg orally twice every day. 6. Depressive disorder. Currently on duloxetine 60 mg orally twice every day as well as Abilify 2 mg orally once every day. 7. History of White's esophagus/GERD with esophagitis. Continue patient on pantoprazole 40 mg orally once every day. 8. Fibromyalgia. Continue patient on duloxetine 60 mg orally twice every day. 9. History of polymyalgia rheumatica currently on prednisone 10 mg orally once every day. 10. History of osteoporosis. Was supposed to be started on Prolia injection every 6-month however the insurance declined, patient is currently on calcium 1200 mg once every day, vitamin D3 2000 unit once every day, Evista 60 mg orally once every day. 11. Spondylosis of lumbar spine. Current pain management. 12. Physical therapy has been working with the patient and trying to get the patient to subacute rehabilitation 13. Awaiting prior authorization for the patient to be transferred to [facility]. Objective - Vital Signs Vital signs: Vital Signs Temp 98.0 F 05/23/24 00:43 Pulse 80 05/23/24 00:43 Resp 18 05/23/24 00:43 BP 122/75 05/23/24 00:43 Pulse Ox 93 L 05/23/24 00:43 FiO2 Intake & Output 05/22/24 05/22/24 05/23/24 06:59 18:59 06:59 Other: # Voids 1 5 - Labs CBC & Chem 7: 05/18/24 06:57 05/22/24 02:42 Labs: Abnormal Lab Results - Last 24 Hours (Table) 05/22/24 05/22/24 05/22/24 Range/Units 02:42 06:30 12:02 BUN/Creatinine Ratio 20.12 H (12.00-20.00) Ratio Glucose 161 H (70-110) mg/dL POC Glucose (mg/dL) 157 H 192 H (70-110) mg/dL 05/22/24 05/22/24 Range/Units 16:41 20:20 BUN/Creatinine Ratio (12.00-20.00) Ratio Glucose (70-110) mg/dL POC Glucose (mg/dL) 219 H 132 H (70-110) mg/dL
[2024-05-23 16:36] LABS: Glucose,Whole Blood 159 mg/dL (70-110)
[2024-05-23 16:48] VITALS: BMI 23.1
[2024-05-23] MEDS: bisacodyL 10 MG SUPP RECTAL STA (19:25)
[2024-05-23 20:38] LABS: Glucose,Whole Blood 155 mg/dL (70-110)
[2024-05-23] MEDS: NA PHOS,M-B/NA PHOS,DI-BA 133 ML ENEMA RECTAL STA (22:31)
[2024-05-24 06:13] LABS: Glucose,Whole Blood 98 mg/dL (70-110)
--- NOTE | 2024-05-24 08:59 | P.PN ---
Subjective Progress Note Date: 05/24/24 No acute events overnight per patient. Patient states their right hip pain has been controlled with pain medication. Patient states they have been up to the bathroom with assistance. Objective - Vital Signs Vital signs: Vital Signs Temp 97.0 F L 05/24/24 07:08 Pulse 63 05/24/24 07:08 Resp 17 05/24/24 07:08 BP 123/76 05/24/24 07:08 Pulse Ox 91 L 05/24/24 07:08 FiO2 Intake & Output 05/23/24 05/24/24 05/24/24 18:59 06:59 18:59 Weight 64.864 kg Other: # Voids 2 1 # Bowel Movements 0 1 - Exam Patient was examined at bedside. Patient is resting comfortably in up in bed. No apparent distress. They are awake, alert and able to answer questions. On inspection the surgical hip dressings are intact, there is no drainage, small spot of strikethrough. The skin surrounding the dressing is free of erythema. There is mild swelling in the operative thigh. Operative femoral nerve function is intact. The operative calf is soft to compression. The patient is able to actively plantarflex and dorsiflex their operative ankle and toes. Their operative foot appears well perfused with capillary refill under 2 seconds. - Labs CBC & Chem 7: 05/18/24 06:57 05/22/24 02:42 Labs: Abnormal Lab Results - Last 24 Hours (Table) 05/23/24 05/23/24 05/23/24 Range/Units 10:39 16:35 20:37 POC Glucose (mg/dL) 140 H 159 H 155 H (70-110) mg/dL Assessment and Plan Assessment: Postop 05/16/2024 Operative fixation of right subtrochanteric femur fracture with long intramedullary hip screw Right hip pain Plan: Weight-bear as tolerated on the operative extremity. Use a walker to ambulate with assistance. Leave surgical dressings in place. We appreciate internal medicine for perioperative medical management. Patient was unable to transfer to rehab due to authorization requirements. Discussed with nursing team to have physical therapy for gait training and mobilization today. Disposition: Pending physical therapy, anticipate staying until tomorrow.
[2024-05-24 10:18] LABS: Glucose,Whole Blood 146 mg/dL (70-110)
[2024-05-24 16:53] LABS: Glucose,Whole Blood 208 mg/dL (70-110)
[2024-05-24 20:44] LABS: Glucose,Whole Blood 136 mg/dL (70-110)
[2024-05-25 05:57] LABS: Glucose,Whole Blood 93 mg/dL (70-110)
[2024-05-25 08:57] LABS: Basophils # (A) 0.06 X 10*3/uL (0.00-0.10); Basophils % (A) 0.6 %; Eosinophils # (A) 0.23 X 10*3/uL (0.04-0.35); Eosinophils % (A) 2.2 %; HCT 31.1 % (37.2-46.3); HGB 9.3 g/dL (12.0-15.0); Lymphocytes # (A) 2.25 X 10*3/uL (0.90-5.00); Lymphocytes % (A) 21.5 %; MCHC 29.9 g/dL (32.0-37.0); MCV 90.1 FL (80.0-97.0); Mean Platelet Volume 10.1 FL (9.5-12.2); Monocytes # (A) 0.82 X 10*3/uL (0.20-1.00); Monocytes % (A) 7.8 %; NRBC Per 100 WBC 0 X 10*3/uL (0.00-0.01); Neutrophils # (A) 7.02 X 10*3/uL (1.80-7.70); Neutrophils % (A) 67.1 %; Platelet Count 447 X 10*3/uL (140-440); RBC 3.45 X 10*6/uL (4.10-5.20); RDW 16.4 % (11.5-14.5); WBC 10.46 X 10*3/uL (4.50-10.00)
[2024-05-25 09:29] LABS: ALT 12 U/L (8-44); AST 19 U/L (13-35); Albumin 3.3 g/dL (3.8-4.9); Albumin/Globulin Ratio 1.43 Ratio (1.60-3.17); Alkaline Phosphatase 65 U/L (41-126); BUN/Creat Ratio 24.14 Ratio (12.00-20.00); Blood Urea Nitrogen 16.9 mg/dL (9.0-27.0); Calcium 8.9 mg/dL (8.7-10.3); Carbon Dioxide 30.1 mmol/L (21.6-31.8); Chloride 98 mmol/L (96-109); Globulin 2.3 g/dL (1.6-3.3); Glucose 79 mg/dL (70-110); Sodium 138 mmol/L (135-145); Total Bilirubin 0.5 mg/dL (0.3-1.2); Total Protein 5.6 g/dL (6.2-8.2)
[2024-05-25 11:27] LABS: Glucose,Whole Blood 100 mg/dL (70-110)
--- NOTE | 2024-05-25 13:55 | P.PN ---
Subjective Progress Note Date: 05/25/24 No acute events overnight per patient. Patient states their right hip pain has been controlled with pain medication. Patient states they have been up to the bathroom with assistance. Patient was evaluated by physical therapy on 03/23/2025 and patient was a two-person max assist to transfer to chair and short acute rehab was recommended. Objective - Vital Signs Vital signs: Vital Signs Temp 97.3 F L 05/25/24 13:34 Pulse 98 05/25/24 13:34 Resp 18 05/25/24 13:34 BP 120/66 05/25/24 13:34 Pulse Ox 96 05/25/24 13:34 FiO2 Intake & Output 05/24/24 05/25/24 05/25/24 18:59 06:59 18:59 Output Total 600 Balance -600 Output: Urine 600 Other: # Voids 3 # Bowel Movements 0 - Exam Patient was examined at bedside. Patient is resting comfortably in up in a chair. No apparent distress. They are awake, alert and able to answer questions. On inspection the surgical hip dressings are intact, there is no drainage, small spot of strikethrough. The skin surrounding the dressing is free of erythema. There is mild swelling in the operative thigh. Operative femoral nerve function is intact. The operative calf is soft to compression. The patient is able to actively plantarflex and dorsiflex their operative ankle and toes. Their operative foot appears well perfused with capillary refill under 2 seconds. - Labs CBC & Chem 7: 05/25/24 03:23 05/25/24 03:23 Labs: Abnormal Lab Results - Last 24 Hours (Table) 05/24/24 05/24/24 05/25/24 Range/Units 16:51 20:42 03:23 WBC 10.46 H (4.50-10.00) X 10*3/uL RBC 3.45 L (4.10-5.20) X 10*6/uL Hgb 9.3 L (12.0-15.0) g/dL Hct 31.1 L (37.2-46.3) % MCHC 29.9 L (32.0-37.0) g/dL RDW 16.4 H (11.5-14.5) % Plt Count 447 H (140-440) X 10*3/uL Immature Gran # 0.08 H (0.00-0.04) X 10*3/uL BUN/Creatinine Ratio (12.00-20.00) Ratio POC Glucose (mg/dL) 208 H 136 H (70-110) mg/dL Total Protein (6.2-8.2) g/dL Albumin (3.8-4.9) g/dL Albumin/Globulin Ratio (1.60-3.17) Ratio 05/25/24 Range/Units 03:23 WBC (4.50-10.00) X 10*3/uL RBC (4.10-5.20) X 10*6/uL Hgb (12.0-15.0) g/dL Hct (37.2-46.3) % MCHC (32.0-37.0) g/dL RDW (11.5-14.5) % Plt Count (140-440) X 10*3/uL Immature Gran # (0.00-0.04) X 10*3/uL BUN/Creatinine Ratio 24.14 H (12.00-20.00) Ratio POC Glucose (mg/dL) (70-110) mg/dL Total Protein 5.6 L (6.2-8.2) g/dL Albumin 3.3 L (3.8-4.9) g/dL Albumin/Globulin Ratio 1.43 L (1.60-3.17) Ratio Assessment and Plan Assessment: Postop 05/16/2024 Operative fixation of right subtrochanteric femur fracture with long intramedullary hip screw Right hip pain Plan: Weight-bear as tolerated on the operative extremity. Use a walker to ambulate with assistance. Leave surgical dressings in place. We appreciate internal medicine for perioperative medical management. Patient was evaluated by physical therapy on 03/23/2025 and patient was a two- person max assist to transfer to chair and short acute rehab was recommended. Disposition: Patient is cleared to transfer to short acute rehab from an orthopedic standpoint.
[2024-05-25 16:34] LABS: Glucose,Whole Blood 215 mg/dL (70-110)
[2024-05-25 22:46] LABS: Glucose,Whole Blood 213 mg/dL (70-110)
--- NOTE | 2024-05-26 05:56 | P.PN ---
Subjective Progress Note Date: 05/24/24 HISTORY OF PRESENT ILLNESS: This is a 78-year-old female patient of [facility] with a previous medical history significant for hypertension and hypertensive cardiovascular disease, hyperlipidemia, age-related osteoporosis fibromyalgia, anxiety, history of left breast cancer status post left lumpectomy has been under the care of hematology oncology, diabetes mellitus type 2, White's esophagus, anxiety disorder, polymyalgia rheumatica, major depressive disorder, chronic pain syndrome, patient has been taking care of her since she was diagnosed with glioblastoma multiforme he has been getting radiation and chemotherapy here at [facility], apparently patient has been overwhelmed with the fact that her is critically ill, patient woke up to go to use the restroom, and stood up and all of a sudden lost her balance fell backward hit the back and ended up with significant pain in the lumbar spine as well as the right hip area, EMS was called and the patient was transported to [facility] for evaluation, and the lumbar spine x-ray that showed degenerative disc disease without evidence of fracture chest x-ray did not show evidence of acute abnormalities, right hip showed evidence of commuted right IT femoral neck fracture she was admitted under orthopedic surgery I was asked to see the patient for preoperative medical clearance and medical management. 05/17: Patient is laying down in bed in no apparent distress, she denies any chest pain, shortness of breath at this time, her pain is not well-controlled, she underwent right IT femoral neck fracture fixation with a long intramedullary nail that was done successfully, patient was instructed about usage of incentive spirometer to reduce the incidence of atelectasis and healthcare associated pneu monia, continue current pain management, physical therapy evaluation, patient will likely require subacute rehabilitation. 05/18: In bed she is crying less, she continues to to be in pain, she is taking her pain medicine, physical therapy evaluation, patient will require to go to subacute rehabilitation at this time, continue current treatment plan, follow-up with the patient very closely, we will check her labs today 05/19: Patient sitting up in bed in minimal distress, she continues to require 2 people to assist her to move from bed to chair, she will require a lot of physical therapy, patient continues to be on 2 L nasal cannula, chest x-ray showed evidence of COPD without evidence of any pulmonary disease, patient was given Lasix 20 mg IV push along with potassium supplement, we will try to keep the patient on oxygen at this point encouraged to use incentive spirometer, patient can be transferred to [facility] today I will follow-up with patient at [facility] in the next few days. 05/20: Patient sitting up in a recliner chair in no apparent distress, she has no chest pain, shortness of breath, I took her off of the oxygen her oxygenation ranged between 97 and 100% on room air, discontinue oxygenation at this time follow-up with the patient very closely continue physical therapy and Occupational Therapy evaluation, patient is medically stable to be discharged to [facility]. 05/21:Patient evaluated today on the medical floor. She is postoperative day #5 right hip IM nailing. She reports feeling worse than yesterday and states that her right leg is throbbing at the knee. Continues to utilize IV and oral pain medications. Her discharge has gone to an appeals for rehab and social work to follow up on Thursday. 05/22:Patient is evaluated in follow-up on the medical floor. She is quite tearful and discussing her social issues including the need to be at home to care for her and feels like she does not have much family support. Patient is indecisive about going to rehab at this point although she has not been able to ambulate postsurgically. She is now postoperative day #6 right hip IM nailing. Her pain is mildly improved today but she is continuing to use IV and oral pain medications. 05/23: Patient remains in the hospital awaiting the final decision of her [employer] to be transferred to [facility] patient does not appear to need tremendous amount of help and she is down to get IV able to go home the way she is after surgery, especially with her who is fighting with glioblastoma multiforme and he is currently receiving radiation and chemotherapy. I would definitely advise for the patient to go to subacute rehabilitation otherwise her outcome will not be good 05/24: Patient is sitting up in bed in no apparent distress, she continues to h ave some pain on and off in the right lower extremity, she is using two-person assist, to get from the bed to the recliner chair, she continues to work with physical therapy, we are still awaiting prior authorization for the patient to be discharged to a subacute rehabilitation, as a matter fact it was declined and appeal was resent again. REVIEW OF SYSTEMS: Constitutional: No documented fever, no chills, no night sweats. No weight change. No weakness, fatigue or lethargy. No daytime sleepiness. EENT: No headache. No blurred vision or double vision, no loss of vision. No loss of Hearing, no ringing in the ears, no dizziness. No nasal drainage or congestion. No epistaxis. No sore throat. Lungs: No shortness of breath, no cough, no sputum production. No wheezing. Reports dyspnea with activity. Cardiovascular: No chest pain, no lower extremity edema. No palpitations. No paroxysmal nocturnal dyspnea. No orthopnea. No lightheadedness or dizziness. No syncopal episodes. Abdominal: Reports no abdominal pain. No nausea, vomiting. No diarrhea. constipation. No bloody or tarry stools reports loss of appetite. Genitourinary: No dysuria, increased frequency, urgency. No urinary retention. Musculoskeletal: No myalgias. No muscle weakness, posituve for gait dysfunction , no frequent falls. positive for back pain. No neck pain, right hip pain Integumentary: Right hip wound is covered with a dressing drainage, no lesions. No rash or pruritus. No unusual bruising. No change in hair or nails. Neurologic: No aphasia. No facial droop. No change in mentation. No head injury. No headache. No paralysis. No paresthesia. Psychiatric: positive for depression. positive for anxiety. No mood swings. Endocrine: No abnormal blood sugars. positive for weight change. PHYSICAL EXAMINATION: General: 78-year-old female sitting up in the recliner chair no di stress HEENT: Head is atraumatic, normocephalic, pupils were equal round reactive to light and recommendation, extraocular muscle movement were intact, sclera nonicteric, conjunctivae were pale, mucous membranes of the mouth are somewhat dry. Neck: Supple, no JVP, normal carotid upstroke bilaterally, no lymphadenopathy. Chest: Decreased breath sounds at the bases, few rhonchi, no expiratory wheez es, no chest wall tenderness, no intercostal retractions. Heart: First heart sound is normal, second heart sounds normal there is systolic ejection murmur 2/6 located in the left sternal border Abdomen: Soft, nontender, nondistended, positive bowel sounds. Extremities: No edema, no calf tenderness, incision site appears to be clean with no drainage dressing is intact Neurologic examination: Patient is awake alert and oriented x3, cranial nerves II-12 appear grossly intact, muscle power were 4 out of 5 in upper extremities and 3 out of 5 in bilateral lower extremities ASSESSMENT AND PLAN: 1. Postoperative day #8 status post intramedullary long nail for right hip IT fracture. Pain is much better today, continue aspirin 80 mg orally twice every day for 30 days, follow-up with the patient very closely, patient will work with physical therapy and Occupational Therapy likely will need to go for subacute rehabilitation at [facility]. 2. Hypertension and hypertensive cardiovascular disease. Continue patient on lisinopril 5 mg orally once every day, monitor the patient blood pressure very closely. 3. Hyperlipidemia. Continue patient on atorvastatin 40 mg orally orally once every day. 4. History of diabetes mellitus type 2. Patient has been on metformin 500 mg orally twice every day as well and Soliqua 15 units after breakfast daily. We will hold Soliqua and start the patient on Levemir 15 units at bedtime along with a sliding scale insulin. 5. History of anxiety disorder. Continue patient on lorazepam 0.5 mg orally 3 times a day as needed. Continue duloxetine 60 mg orally twice every day. 6. Depressive disorder. Currently on duloxetine 60 mg orally twice every day as well as Abilify 2 mg orally once every day. 7. History of White's esophagus/GERD with esophagitis. Continue patient on pantoprazole 40 mg orally once every day. 8. Fibromyalgia. Continue patient on duloxetine 60 mg orally twice every day. 9. History of polymyalgia rheumatica currently on prednisone 10 mg orally once every day. 10. History of osteoporosis. Was supposed to be started on Prolia injection every 6-month however the insurance declined, patient is currently on calcium 1200 mg once every day, vitamin D3 2000 unit once every day, Evista 60 mg orally once every day. 11. Spondylosis of lumbar spine. Current pain management. 12. Physical therapy has been working with the patient and trying to get the patient to subacute rehabilitation 13. Awaiting prior authorization/ appeal for the patient to be transferred to [facility]. Objective - Vital Signs Vital signs: Vital Signs Temp 97.0 F L 05/24/24 07:08 Pulse 63 05/24/24 07:08 Resp 17 05/24/24 07:08 BP 123/76 05/24/24 07:08 Pulse Ox 91 L 05/24/24 07:08 FiO2 Intake & Output 05/23/24 05/24/24 05/24/24 18:59 06:59 18:59 Weight 64.864 kg Other: # Voids 2 1 # Bowel Movements 0 1 - Labs CBC & Chem 7: 05/25/24 03:23 05/25/24 03:23 Labs: Abnormal Lab Results - Last 24 Hours (Table) 05/23/24 05/23/24 05/24/24 Range/Units 16:35 20:37 10:17 POC Glucose (mg/dL) 159 H 155 H 146 H (70-110) mg/dL
--- NOTE | 2024-05-26 05:57 | P.PN ---
Subjective Progress Note Date: 05/25/24 HISTORY OF PRESENT ILLNESS: This is a 78-year-old female patient of [facility] with a previous medical history significant for hypertension and hypertensive cardiovascular disease, hyperlipidemia, age-related osteoporosis fibromyalgia, anxiety, history of left breast cancer status post left lumpectomy has been under the care of hematology oncology, diabetes mellitus type 2, White's esophagus, anxiety disorder, polymyalgia rheumatica, major depressive disorder, chronic pain syndrome, patient has been taking care of her since she was diagnosed with glioblastoma multiforme he has been getting radiation and chemotherapy here at [facility], apparently patient has been overwhelmed with the fact that her is critically ill, patient woke up to go to use the restroom, and stood up and all of a sudden lost her balance fell backward hit the back and ended up with significant pain in the lumbar spine as well as the right hip area, EMS was called and the patient was transported to [facility] for evaluation, and the lumbar spine x-ray that showed degenerative disc disease without evidence of fracture chest x-ray did not show evidence of acute abnormalities, right hip showed evidence of commuted right IT femoral neck fracture she was admitted under orthopedic surgery I was asked to see the patient for preoperative medical clearance and medical management. 05/17: Patient is laying down in bed in no apparent distress, she denies any chest pain, shortness of breath at this time, her pain is not well-controlled, she underwent right IT femoral neck fracture fixation with a long intramedullary nail that was done successfully, patient was instructed about usage of incentive spirometer to reduce the incidence of atelectasis and healthcare associated pneu monia, continue current pain management, physical therapy evaluation, patient will likely require subacute rehabilitation. 05/18: In bed she is crying less, she continues to to be in pain, she is taking her pain medicine, physical therapy evaluation, patient will require to go to subacute rehabilitation at this time, continue current treatment plan, follow-up with the patient very closely, we will check her labs today 05/19: Patient sitting up in bed in minimal distress, she continues to require 2 people to assist her to move from bed to chair, she will require a lot of physical therapy, patient continues to be on 2 L nasal cannula, chest x-ray showed evidence of COPD without evidence of any pulmonary disease, patient was given Lasix 20 mg IV push along with potassium supplement, we will try to keep the patient on oxygen at this point encouraged to use incentive spirometer, patient can be transferred to [facility] today I will follow-up with patient at [facility] in the next few days. 05/20: Patient sitting up in a recliner chair in no apparent distress, she has no chest pain, shortness of breath, I took her off of the oxygen her oxygenation ranged between 97 and 100% on room air, discontinue oxygenation at this time follow-up with the patient very closely continue physical therapy and Occupational Therapy evaluation, patient is medically stable to be discharged to [facility]. 05/21:Patient evaluated today on the medical floor. She is postoperative day #5 right hip IM nailing. She reports feeling worse than yesterday and states that her right leg is throbbing at the knee. Continues to utilize IV and oral pain medications. Her discharge has gone to an appeals for rehab and social work to follow up on Thursday. 05/22:Patient is evaluated in follow-up on the medical floor. She is quite tearful and discussing her social issues including the need to be at home to care for her and feels like she does not have much family support. Patient is indecisive about going to rehab at this point although she has not been able to ambulate postsurgically. She is now postoperative day #6 right hip IM nailing. Her pain is mildly improved today but she is continuing to use IV and oral pain medications. 05/23: Patient remains in the hospital awaiting the final decision of her [employer] to be transferred to [facility] patient does not appear to need tremendous amount of help and she is down to get IV able to go home the way she is after surgery, especially with her who is fighting with glioblastoma multiforme and he is currently receiving radiation and chemotherapy. I would definitely advise for the patient to go to subacute rehabilitation otherwise her outcome will not be good 05/24: Patient is sitting up in bed in no apparent distress, she continues to h ave some pain on and off in the right lower extremity, she is using two-person assist, to get from the bed to the recliner chair, she continues to work with physical therapy, we are still awaiting prior authorization for the patient to be discharged to a subacute rehabilitation, as a matter fact it was declined and appeal was resent again. 2/19: Emotional at this point in time, she continues to have some pain not as bad as yesterday, she continues to work with physical therapy, show appetite is good, she did have a small bowel movement today, she continue to follow-up with our recommendation, awaiting the final appeal from [facility] for the patient to go to subacute rehabilitation at this point in time, no new changes at this point in time. REVIEW OF SYSTEMS: Constitutional: No documented fever, no chills, no night sweats. No weight change. No weakness, fatigue or lethargy. No daytime sleepiness. EENT: No headache. No blurred vision or double vision, no loss of vision. No loss of Hearing, no ringing in the ears, no dizziness. No nasal drainage or congestion. No epistaxis. No sore throat. Lungs: No shortness of breath, no cough, no sputum production. No wheezing. Reports dyspnea with activity. Cardiovascular: No chest pain, no lower extremity edema. No palpitations. No paroxysmal nocturnal dyspnea. No orthopnea. No lightheadedness or dizziness. No syncopal episodes. Abdominal: Reports no abdominal pain. No nausea, vomiting. No diarrhea. constipation. No bloody or tarry stools reports loss of appetite. Genitourinary: No dysuria, increased frequency, urgency. No urinary retention. Musculoskeletal: No myalgias. No muscle weakness, posituve for gait dysf unction, no frequent falls. positive for back pain. No neck pain, right hip pain Integumentary: Right hip wound is covered with a dressing drainage, no lesions. No rash or pruritus. No unusual bruising. No change in hair or nails. Neurologic: No aphasia. No facial droop. No change in mentation. No head injury. No headache. No paralysis. No paresthesia. Psychiatric: positive for depression. positive for anxiety. No mood swings. Endocrine: No abnormal blood sugars. positive for weight change. PHYSICAL EXAMINATION: General: 78-year-old female sitting up in the recliner chair no distress HEENT: Head is atraumatic, normocephalic, pupils were equal round reactive to light and recommendation, extraocular muscle movement were intact, sclera nonicteric, conjunctivae were pale, mucous membranes of the mouth are somewhat dry. Neck: Supple, no JVP, normal carotid upstroke bilaterally, no lymphadenopathy. Chest: Decreased breath sounds at the bases, few rhonchi, no expiratory wheezes, no chest wall tenderness, no intercostal retractions. Heart: First heart sound is normal, second heart sounds normal there is systolic ejection murmur 2/6 located in the left sternal border Abdomen: Soft, nontender, nondistended, positive bowel sounds. Extremities: No edema, no calf tenderness, incision site appears to be clean with no drainage dressing is intact Neurologic examination: Patient is awake alert and oriented x3, cranial nerves II-12 appear grossly intact, muscle power were 4 out of 5 in upper extremities and 3 out of 5 in bilateral lower extremities ASSESSMENT AND PLAN: 1. Postoperative day #9 status post intramedullary long nail for right hip IT fracture. Pain is much better today, continue aspirin 80 mg orally twice every day for 30 days, follow-up with the patient very closely, patient will work with physical therapy and Occupational Therapy likely will need to go for subacute rehabilitation at [facility]. 2. Hypertension and hypertensive cardiovascular disease. Continue patient on lisinopril 5 mg orally once every day, monitor the patient blood pressure very closely. 3. Hyperlipidemia. Continue patient on atorvastatin 40 mg orally orally once every day. 4. History of diabetes mellitus type 2. Patient has been on metformin 500 mg orally twice every day as well and Soliqua 15 units after breakfast daily. We will hold Soliqua and start the patient on Levemir 15 units at bedtime along with a sliding scale insulin. 5. History of anxiety disorder. Continue patient on lorazepam 0.5 mg orally 3 times a day as needed. Continue duloxetine 60 mg orally twice every day. 6. Depressive disorder. Currently on duloxetine 60 mg orally twice every day as well as Abilify 2 mg orally once every day. 7. History of White's esophagus/GERD with esophagitis. Continue patient on pantoprazole 40 mg orally once every day. 8. Fibromyalgia. Continue patient on duloxetine 60 mg orally twice every day. 9. History of polymyalgia rheumatica currently on prednisone 10 mg orally once every day. 10. History of osteoporosis. Was supposed to be started on Prolia injection every 6-month however the insurance declined, patient is currently on calcium 1200 mg once every day, vitamin D3 2000 unit once every day, Evista 60 mg orally once every day. 11. Spondylosis of lumbar spine. Current pain management. 12. Physical therapy has been working with the patient and trying to get the patient to subacute rehabilitation 13. Awaiting prior authorization/ appeal for the patient to be transferred to [facility]. Objective - Vital Signs Vital signs: Vital Signs Temp 97.8 F 05/26/24 02:05 Pulse 85 05/26/24 02:05 Resp 19 05/26/24 02:05 BP 169/81 05/26/24 02:05 Pulse Ox 92 L 05/26/24 02:05 FiO2 Intake & Output 05/25/24 05/25/24 05/26/24 06:59 18:59 06:59 Output Total 600 300 Balance -600 -300 Output: Urine 600 300 Other: # Voids 1 - Labs CBC & Chem 7: 05/25/24 03:23 05/25/24 03:23 Labs: Abnormal Lab Results - Last 24 Hours (Table) 05/25/24 05/25/24 05/25/24 Range/Units 03:23 03:23 16:28 WBC 10.46 H (4.50-10.00) X 10*3/uL RBC 3.45 L (4.10-5.20) X 10*6/uL Hgb 9.3 L (12.0-15.0) g/dL Hct 31.1 L (37.2-46.3) % MCHC 29.9 L (32.0-37.0) g/dL RDW 16.4 H (11.5-14.5) % Plt Count 447 H (140-440) X 10*3/uL Immature Gran # 0.08 H (0.00-0.04) X 10*3/uL BUN/Creatinine Ratio 24.14 H (12.00-20.00) Ratio POC Glucose (mg/dL) 215 H (70-110) mg/dL Total Protein 5.6 L (6.2-8.2) g/dL Albumin 3.3 L (3.8-4.9) g/dL Albumin/Globulin Ratio 1.43 L (1.60-3.17) Ratio 05/25/24 Range/Units 22:43 WBC (4.50-10.00) X 10*3/uL RBC (4.10-5.20) X 10*6/uL Hgb (12.0-15.0) g/dL Hct (37.2-46.3) % MCHC (32.0-37.0) g/dL RDW (11.5-14.5) % Plt Count (140-440) X 10*3/uL Immature Gran # (0.00-0.04) X 10*3/uL BUN/Creatinine Ratio (12.00-20.00) Ratio POC Glucose (mg/dL) 213 H (70-110) mg/dL Total Protein (6.2-8.2) g/dL Albumin (3.8-4.9) g/dL Albumin/Globulin Ratio (1.60-3.17) Ratio
[2024-05-26 06:31] LABS: Glucose,Whole Blood 87 mg/dL (70-110)
--- NOTE | 2024-05-26 08:05 | P.PN ---
Subjective Progress Note Date: 05/26/24 No acute events overnight per patient. Patient states their right hip pain has been controlled with pain medication. Patient states that her pain is slightly worse today due to sitting in the chair all day yesterday. Patient states they have been getting up to the bathroom with assistance. Patient was evaluated by physical therapy on 03/23/2025 and patient was a two-person max assist to transfer to chair and short acute rehab was recommended. Objective - Vital Signs Vital signs: Vital Signs Temp 97.8 F 05/26/24 07:36 Pulse 77 05/26/24 07:36 Resp 17 05/26/24 07:36 BP 151/78 05/26/24 07:36 Pulse Ox 90 L 05/26/24 07:36 FiO2 Intake & Output 05/25/24 05/26/24 05/26/24 18:59 06:59 18:59 Intake Total 240 Output Total 300 Balance -300 240 Intake: Oral 240 Output: Urine 300 Other: # Voids 1 1 - Exam Patient was examined at bedside. Patient is resting comfortably in up in . No apparent distress. They are awake, alert and able to answer questions. On inspection the surgical hip dressings are intact, there is no drainage. The skin surrounding the dressing is free of erythema. There is mild swelling in the operative thigh. Operative femoral nerve function is intact. The operative calf is soft to compression. The patient is able to actively plantarflex and dorsiflex their operative ankle and toes. Their operative foot appears well perfused with capillary refill under 2 seconds. - Labs CBC & Chem 7: 05/25/24 03:23 05/25/24 03:23 Labs: Abnormal Lab Results - Last 24 Hours (Table) 05/25/24 05/25/24 05/25/24 Range/Units 03:23 03:23 16:28 WBC 10.46 H (4.50-10.00) X 10*3/uL RBC 3.45 L (4.10-5.20) X 10*6/uL Hgb 9.3 L (12.0-15.0) g/dL Hct 31.1 L (37.2-46.3) % MCHC 29.9 L (32.0-37.0) g/dL RDW 16.4 H (11.5-14.5) % Plt Count 447 H (140-440) X 10*3/uL Immature Gran # 0.08 H (0.00-0.04) X 10*3/uL BUN/Creatinine Ratio 24.14 H (12.00-20.00) Ratio POC Glucose (mg/dL) 215 H (70-110) mg/dL Total Protein 5.6 L (6.2-8.2) g/dL Albumin 3.3 L (3.8-4.9) g/dL Albumin/Globulin Ratio 1.43 L (1.60-3.17) Ratio 05/25/24 Range/Units 22:43 WBC (4.50-10.00) X 10*3/uL RBC (4.10-5.20) X 10*6/uL Hgb (12.0-15.0) g/dL Hct (37.2-46.3) % MCHC (32.0-37.0) g/dL RDW (11.5-14.5) % Plt Count (140-440) X 10*3/uL Immature Gran # (0.00-0.04) X 10*3/uL BUN/Creatinine Ratio (12.00-20.00) Ratio POC Glucose (mg/dL) 213 H (70-110) mg/dL Total Protein (6.2-8.2) g/dL Albumin (3.8-4.9) g/dL Albumin/Globulin Ratio (1.60-3.17) Ratio Assessment and Plan Assessment: Postop 05/16/2024 Operative fixation of right subtrochanteric femur fracture with long intramedullary hip screw Right hip pain Plan: Weight-bear as tolerated on the operative extremity. Use a walker to ambulate with assistance. Leave surgical dressings in place until postop day 14, then may be removed and left open, but may dress as needed. We appreciate internal medicine for perioperative medical management. Patient was evaluated by physical therapy on 03/23/2025 and patient was a two- person max assist to transfer to chair and short acute rehab was recommended. Disposition: Patient is cleared to transfer to short acute rehab from an orthopedic standpoint. Awaiting authorization.
[2024-05-26 11:34] LABS: Glucose,Whole Blood 138 mg/dL (70-110)
--- NOTE | 2024-05-26 13:49 | P.PN ---
Subjective Progress Note Date: 05/26/24 HISTORY OF PRESENT ILLNESS: This is a 78-year-old female patient of [facility] with a previous medical history significant for hypertension and hypertensive cardiovascular disease, hyperlipidemia, age-related osteoporosis fibromyalgia, anxiety, history of left breast cancer status post left lumpectomy has been under the care of hematology oncology, diabetes mellitus type 2, White's esophagus, anxiety disorder, polymyalgia rheumatica, major depressive disorder, chronic pain syndrome, patient has been taking care of her since she was diagnosed with glioblastoma multiforme he has been getting radiation and chemotherapy here at [facility], apparently patient has been overwhelmed with the fact that her is critically ill, patient woke up to go to use the restroom, and stood up and all of a sudden lost her balance fell backward hit the back and ended up with significant pain in the lumbar spine as well as the right hip area, EMS was called and the patient was transported to [facility] for evaluation, and the lumbar spine x-ray that showed degenerative disc disease without evidence of fracture chest x-ray did not show evidence of acute abnormalities, right hip showed evidence of commuted right IT femoral neck fracture she was admitted under orthopedic surgery I was asked to see the patient for preoperative medical clearance and medical management. 05/17: Patient is laying down in bed in no apparent distress, she denies any chest pain, shortness of breath at this time, her pain is not well-controlled, she underwent right IT femoral neck fracture fixation with a long intramedullary nail that was done successfully, patient was instructed about usage of incentive spirometer to reduce the incidence of atelectasis and healthcare associated pneu monia, continue current pain management, physical therapy evaluation, patient will likely require subacute rehabilitation. 05/18: In bed she is crying less, she continues to to be in pain, she is taking her pain medicine, physical therapy evaluation, patient will require to go to subacute rehabilitation at this time, continue current treatment plan, follow-up with the patient very closely, we will check her labs today 05/19: Patient sitting up in bed in minimal distress, she continues to require 2 people to assist her to move from bed to chair, she will require a lot of physical therapy, patient continues to be on 2 L nasal cannula, chest x-ray showed evidence of COPD without evidence of any pulmonary disease, patient was given Lasix 20 mg IV push along with potassium supplement, we will try to keep the patient on oxygen at this point encouraged to use incentive spirometer, patient can be transferred to [facility] today I will follow-up with patient at [facility] in the next few days. 05/20: Patient sitting up in a recliner chair in no apparent distress, she has no chest pain, shortness of breath, I took her off of the oxygen her oxygenation ranged between 97 and 100% on room air, discontinue oxygenation at this time follow-up with the patient very closely continue physical therapy and Occupational Therapy evaluation, patient is medically stable to be discharged to [facility]. 05/21:Patient evaluated today on the medical floor. She is postoperative day #5 right hip IM nailing. She reports feeling worse than yesterday and states that her right leg is throbbing at the knee. Continues to utilize IV and oral pain medications. Her discharge has gone to an appeals for rehab and social work to follow up on Thursday. 05/22:Patient is evaluated in follow-up on the medical floor. She is quite tearful and discussing her social issues including the need to be at home to care for her and feels like she does not have much family support. Patient is indecisive about going to rehab at this point although she has not been able to ambulate postsurgically. She is now postoperative day #6 right hip IM nailing. Her pain is mildly improved today but she is continuing to use IV and oral pain medications. 05/23: Patient remains in the hospital awaiting the final decision of her [employer] to be transferred to [facility] patient does not appear to need tremendous amount of help and she is down to get IV able to go home the way she is after surgery, especially with her who is fighting with glioblastoma multiforme and he is currently receiving radiation and chemotherapy. I would definitely advise for the patient to go to subacute rehabilitation otherwise her outcome will not be good 05/24: Patient is sitting up in bed in no apparent distress, she continues to h ave some pain on and off in the right lower extremity, she is using two-person assist, to get from the bed to the recliner chair, she continues to work with physical therapy, we are still awaiting prior authorization for the patient to be discharged to a subacute rehabilitation, as a matter fact it was declined and appeal was resent again. 2/19: Emotional at this point in time, she continues to have some pain not as bad as yesterday, she continues to work with physical therapy, show appetite is good, she did have a small bowel movement today, she continue to follow-up with our recommendation, awaiting the final appeal from [facility] for the patient to go to subacute rehabilitation at this point in time, no new changes at this point in time. 05/26: Patient sitting up in recliner chair, she is overall, she is crying, she denies any chest pain at this time, shortness of breath, she is not eating much, she is worried about her ill at home, her daughter is overwhelmed with their care, I will give her a call later on today to discuss the plan of care for both of them. REVIEW OF SYSTEMS: Constitutional: No documented fever, no chills, no night sweats. No weight change. No weakness, fatigue or lethargy. No daytime sleepiness. EENT: No headache. No blurred vision or double vision, no loss of vision. No loss of Hearing, no ringing in the ears, no dizziness. No nasal drainage or congestion. No epistaxis. No sore throat. Lungs: No shortness of breath, no cough, no sputum production. No wheezing. Reports dyspnea with activity. Cardiovascular: No chest pain, no lower extremity edema. No palpitations. No paroxysmal nocturnal dyspnea. No orthopnea. No lightheadedness or dizziness. No syncopal episodes. Abdominal: Reports no abdominal pain. No nausea, vomiting. No diarrhea. constipation. No bloody or tarry stools reports loss of appetite. Genitourinary: No dysuria, increased frequency, urgency. No urinary retention. Musculoskeletal: No myalgias. No muscle weakness, posituve for gait dysfunction, no frequent falls. positive for back pain. No neck pain, right hip pain Integumentary: Right hip wound is covered with a dressing drainage, no lesions. No rash or pruritus. No unusual bruising. No change in hair or nails. Neurologic: No aphasia. No facial droop. No change in mentation. No head injury. No headache. No paralysis. No paresthesia. Psychiatric: positive for depression. positive for anxiety. No mood swings. Endocrine: No abnormal blood sugars. positive for weight change. PHYSICAL EXAMINATION: General: 78-year-old female sitting up in the recliner chair no distress HEENT: Head is atraumatic, normocephalic, pupils were equal round reactive to light and recommendation, extraocular muscle movement were intact, sclera nonicteric, conjunctivae were pale, mucous membranes of the mouth are somewhat dry. Neck: Supple, no JVP, normal carotid upstroke bilaterally, no lymphadenopathy. Chest: Decreased breath sounds at the bases, few rhonchi, no expiratory wheezes, no chest wall tenderness, no intercostal retractions. Heart: First heart sound is normal, second heart sounds normal there is systolic ejection murmur 2/6 located in the left sternal border Abdomen: Soft, nontender, nondistended, positive bowel sounds. Extremities: No edema, no calf tenderness, incision site appears to be clean with no drainage dressing is intact Neurologic examination: Patient is awake alert and oriented x3, cranial nerves II-12 appear grossly intact, muscle power were 4 out of 5 in upper extremities and 3 out of 5 in bilateral lower extremities ASSESSMENT AND PLAN: 1. Postoperative day #10 status post intramedullary long nail for right hip IT fracture. Pain is much better today, continue aspirin 80 mg orally twice every day for 30 days, follow-up with the patient very closely, patient will work with physical therapy and Occupational Therapy likely will need to go for subacute rehabilitation at [facility]. 2. Hypertension and hypertensive cardiovascular disease. Continue patient on lisinopril 5 mg orally once every day, monitor the patient blood pressure very closely. 3. Hyperlipidemia. Continue patient on atorvastatin 40 mg orally orally once every day. 4. History of diabetes mellitus type 2. Patient has been on metformin 500 mg orally twice every day as well and Soliqua 15 units after breakfast daily. We will hold Soliqua and start the patient on Levemir 15 units at bedtime along with a sliding scale insulin. 5. History of anxiety disorder. Continue patient on lorazepam 0.5 mg orally 3 times a day as needed. Continue duloxetine 60 mg orally twice every day. 6. Depressive disorder. Currently on duloxetine 60 mg orally twice every day as well as Abilify 2 mg orally once every day. 7. History of White's esophagus/GERD with esophagitis. Continue patient on pantoprazole 40 mg orally once every day. 8. Fibromyalgia. Continue patient on duloxetine 60 mg orally twice every day. 9. History of polymyalgia rheumatica currently on prednisone 10 mg orally once every day. 10. History of osteoporosis. Was supposed to be started on Prolia injection every 6-month however the insurance declined, patient is currently on calcium 1200 mg once every day, vitamin D3 2000 unit once every day, Evista 60 mg orally once every day. 11. Spondylosis of lumbar spine. Current pain management. 12. Physical therapy has been working with the patient and trying to get the patient to subacute rehabilitation 13. Awaiting prior authorization/ appeal for the patient to be transferred to [facility]. Objective - Vital Signs Vital signs: Vital Signs Temp 97.8 F 05/26/24 02:05 Pulse 85 05/26/24 02:05 Resp 19 05/26/24 02:05 BP 169/81 05/26/24 02:05 Pulse Ox 92 L 05/26/24 02:05 FiO2 Intake & Output 05/25/24 05/25/24 05/26/24 06:59 18:59 06:59 Output Total 600 300 Balance -600 -300 Output: Urine 600 300 Other: # Voids 1 - Labs CBC & Chem 7: 05/25/24 03:23 05/25/24 03:23 Labs: Abnormal Lab Results - Last 24 Hours (Table) 05/25/24 05/25/24 05/25/24 Range/Units 03:23 03:23 16:28 WBC 10.46 H (4.50-10.00) X 10*3/uL RBC 3.45 L (4.10-5.20) X 10*6/uL Hgb 9.3 L (12.0-15.0) g/dL Hct 31.1 L (37.2-46.3) % MCHC 29.9 L (32.0-37.0) g/dL RDW 16.4 H (11.5-14.5) % Plt Count 447 H (140-440) X 10*3/uL Immature Gran # 0.08 H (0.00-0.04) X 10*3/uL BUN/Creatinine Ratio 24.14 H (12.00-20.00) Ratio POC Glucose (mg/dL) 215 H (70-110) mg/dL Total Protein 5.6 L (6.2-8.2) g/dL Albumin 3.3 L (3.8-4.9) g/dL Albumin/Globulin Ratio 1.43 L (1.60-3.17) Ratio 05/25/24 Range/Units 22:43 WBC (4.50-10.00) X 10*3/uL RBC (4.10-5.20) X 10*6/uL Hgb (12.0-15.0) g/dL Hct (37.2-46.3) % MCHC (32.0-37.0) g/dL RDW (11.5-14.5) % Plt Count (140-440) X 10*3/uL Immature Gran # (0.00-0.04) X 10*3/uL BUN/Creatinine Ratio (12.00-20.00) Ratio POC Glucose (mg/dL) 213 H (70-110) mg/dL Total Protein (6.2-8.2) g/dL Albumin (3.8-4.9) g/dL Albumin/Globulin Ratio (1.60-3.17) Ratio
[2024-05-26 14:20] VITALS: BP 112/60; PULSE 85; RESP 18; TEMP 97.7
--- NOTE | 2024-05-26 14:43 | P.DS ---
Providers Date of admission: 05/16/24 06:11 Attending physician: Zac Limon Consults: 05/16/24 06:10 Consult Physician Routine Consulting Provider: Nieves Martin Consult Reason/Comments: Medical management Do you want consulting provider notified?: Yes Primary care physician: Nieves Martin [place] [facility] Course: HPI: The patient is a very pleasant 78-year-old female who is presently in the ER following a ground-level fall. The patient states that she fell last night resulting in right hip pain and an inability to ambulate. She was brought to the ER where x-rays show a right hip fracture. At the time of my evaluation the patient is complaining of isolated pain in her right hip. She normally lives at home with her and is a community ambulator. She denies antecedent right hip pain. On 05/16/2024 the patient underwent Operative fixation of right subtrochanteric femur fracture with long intramedullary hip screw by Dr. Limon. Patient tolerated the procedure well. Patient was transferred to orthopedic floor. Patient had postoperative pain as expected. Patient's postoperative pain has been controlled. Patient refused physical therapy evaluation on 05/20/2024 which delayed getting authorization for halfway facility. Patient was examined at bedside this morning. Patient is resting comfortably in bed. No apparent distress. They are awake, alert and able to answer questions. On inspection the surgical hip dressings are intact, there is no drainage or strikethrough. The skin surrounding the dressing is free of erythema. There is mild swelling in the operative thigh. Operative femoral nerve function is intact. The operative calf is soft to compression. The patient is able to actively plantarflex and dorsiflex their operative ankle and toes. Their operative foot appears well perfused with capillary refill under 2 seconds. Plan: Weight-bear as tolerated on the operative extremity. Use a walker to ambulate with assistance. Leave surgical dressings and slava in place 14 days post op then remove. Patient was evaluated by physical therapy on 03/23/2025 and patient was a two- person max assist to transfer to chair and short acute rehab was recommended. We appreciate internal medicine for perioperative medical management. Disposition: Plan transfer to rehab today. Assessment: Postop day #3 Operative fixation of right subtrochanteric femur fracture with long intramedullary hip screw Right hip pain Patient Condition at Discharge: Stable Plan - Discharge Summary Discharge Rx Participant: Yes New Discharge Prescriptions: New HYDROcodone/APAP 10-325MG [Yucca 10] 1 each PO Q6H PRN #28 tab PRN Reason: Pain Aspirin 81 mg PO BID #60 tab Sennosides-Docusate Sodium [Senokot-S] 1 tab PO BID PRN #60 tablet PRN Reason: Constipation No Action metFORMIN HCL [Glucophage] 1,000 mg PO BID DULoxetine HCL [Cymbalta] 60 mg PO BID Omeprazole 20 mg PO BID lisinopriL [Zestril] 5 mg PO DAILY predniSONE 10 mg PO DAILY LORazepam [Ativan] 0.5 mg PO TID ARIPiprazole [Abilify] 2 mg PO DAILY Insulin Glargine/Lixisenatide [Soliqua 100 Unit-33 Mcg/ml Pen] 15 units SQ DAILY Discharge Medication List DULoxetine HCL [Cymbalta] 60 mg PO BID 04/19/19 [History] Omeprazole 20 mg PO BID 04/19/19 [History] metFORMIN HCL [Glucophage] 1,000 mg PO BID 04/19/19 [History] LORazepam [Ativan] 0.5 mg PO TID 05/18/23 [History] ARIPiprazole [Abilify] 2 mg PO DAILY 05/16/24 [History] Insulin Glargine/Lixisenatide [Soliqua 100 Unit-33 Mcg/ml Pen] 15 units SQ DAILY 05/16/24 [History] lisinopriL [Zestril] 5 mg PO DAILY 05/16/24 [History] predniSONE 10 mg PO DAILY 05/16/24 [History] Aspirin 81 mg PO BID #60 tab 05/18/24 [Rx] HYDROcodone/APAP 10-325MG [Yucca 10] 1 each PO Q6H PRN #28 tab 05/18/24 [Rx] Sennosides-Docusate Sodium [Senokot-S] 1 tab PO BID PRN #60 tablet 05/18/24 [Rx] Follow up Appointment(s)/Referral(s): [facility] [facility] [NON-STAFF] - 1 Week Nieves Martin MD [Primary Care Provider] - 1-2 Days [facility], [NON-STAFF] - As Needed Zac Limon MD [Medical Doctor] - 2 Weeks Activity/Diet/Wound Care/Special Instructions: 1. Weight-bear as tolerated on your operative extremity unless instructed otherwise. Use a walker or other assistive device to ambulate. 2. Surgery date 05/16/2024. Leave surgical dressing in place for 14 days post op then remove. Leave surgical slava for 14 days post op then remove. 3. It is okay to shower with your surgical dressing, but do not submerge in water (no hot tubs, bath's, swimming etc.) 4. Take your blood clot prevention medication as prescribed (aspirin, Eliquis, Xarelto, and Plavix are commonly prescribed medications for blood clot prevention) 5. While taking Yucca or Percocet for pain take a stool softener (Ex: Colace) and drink lots of water. 6. Keep all follow-up appointments as scheduled. Please follow up 2 weeks after discharge from hospital. 7. Please contact the office with any questions or concerns [phone] Discharge/Stand Alone Forms: Who Do I Call?, Adult Foster Senior Care List, Assisted Living Facilities, Community Resources, Help In The Home, Outpatient Counseling, Outpatient Therapy List Discharge Disposition: TRANSFER TO SNF/ECF
[2024-05-26] MEDS ORDERED: INSULIN GLARGINE (LANTUS) 100 UNIT/ML SYR SQ SCH (21:00)
--- NOTE | 2024-05-30 18:10 | CDI ---
Documentation Clarification Form Date: 05/30/2024 05:29:57 PM From: Alexandria Ochoa RN, CCDS Email: [email or web address] Admit Date: 05/16/2024 06:11:00 AM Patient Name: Rajinder Paige Visit Number: [id number] Discharge Date: 05/26/2024 06:28:00 PM ATTENTION: The Clinical Documentation Specialists (CDI) and [facility] Coding Staff appreciate your assistance in clarifying documentation. Please respond to the clarification below the line at the bottom and electronically sign. The CDI & [facility] Coding staff will review the response and follow-up if needed. Please note: Queries are made part of the Legal Health Record. If you have any questions, please contact the author of this message via ITS. Doctor Nieves Martin The patient had fluctuating oxygen levels after surgery. Based on this information and the findings below, is there an additional diagnosis that is clinically appropriate for this patient? Patient history/risk factors: HTN, CAD, osteoporosis, DM and glioblastoma. Presents after having a ground level fall. Admitted with right reverse oblique subtrochanteric femur fracture. S/P Operative fixation of right subtrochanteric femur fracture with long intramedullary hip screw on 05/16. Clinical Indicators: 05/17 pulse ox on room air with exercise: 90% 05/19 pulse ox levels: 82%-92%-88% 05/25 pulse ox levels: 79%-96%-90% 05/19 IM: "patient continues to be on 2 L nasal cannula, chest x-ray showed evidence of COPD without evidence of any pulmonary disease. Patient was given Lasix 20 mg IV push along with potassium supplement. We will try to keep the patient on oxygen at this point and encouraged to use incentive spirometer." Treatment: O2 1.5-3LNC 05/16-05/23; IS; IV Lasix 20mg x1 on 05/19 Is there an additional diagnosis that is clinically appropriate for this patient? [ x ] Acute pulmonary insufficiency following operative fixation of right subtrochanteric femur fracture [ ] No additional diagnosis/Not clinically significant [ ] Unable to determine [ ] Other, please specify MTDD
== END 2024-05-26 18:28 | DRG 480 ==
LOC: EC 04:42 → 4SSUR 06:11
PROVIDERS: ADMIT Orthopaedic Surgery; ATTEND Orthopaedic Surgery
PROC: 8E0YXBF Computer Assisted Procedure of Lower Extremity, With Fluoroscopy (ICD-10-PCS; 2024-05-16)
PROC: 0QS604Z Reposition Right Upper Femur with Internal Fixation Device, Open Approach (ICD-10-PCS; principal; 2024-05-16 11:30)
DX: S72.21XA Displaced subtrochanteric fracture of right femur, initial encounter for closed fracture (principal); J95.2 Acute pulmonary insufficiency following nonthoracic surgery; C71.9 Malignant neoplasm of brain, unspecified; E11.9 Type 2 diabetes mellitus without complications; D64.9 Anemia, unspecified; E55.9 Vitamin D deficiency, unspecified; M06.9 Rheumatoid arthritis, unspecified; J44.9 Chronic obstructive pulmonary disease, unspecified; F32.A Depression, unspecified; I10 Essential (primary) hypertension; Z79.4 Long term (current) use of insulin; E78.2 Mixed hyperlipidemia; M47.816 Spondylosis without myelopathy or radiculopathy, lumbar region; M79.7 Fibromyalgia; W01.0XXA Fall on same level from slipping, tripping and stumbling without subsequent striking against object, initial encounter; K21.00 Gastro-esophageal reflux disease with esophagitis, without bleeding; F41.9 Anxiety disorder, unspecified; I25.10 Atherosclerotic heart disease of native coronary artery without angina pectoris; K22.70 Barrett's esophagus without dysplasia; M35.3 Polymyalgia rheumatica; Z92.21 Personal history of antineoplastic chemotherapy; Z92.3 Personal history of irradiation; G89.4 Chronic pain syndrome; Z87.891 Personal history of nicotine dependence; M81.0 Age-related osteoporosis without current pathological fracture; Z79.82 Long term (current) use of aspirin; Z79.84 Long term (current) use of oral hypoglycemic drugs; Z79.899 Other long term (current) drug therapy; Z85.3 Personal history of malignant neoplasm of breast; Z82.49 Family history of ischemic heart disease and other diseases of the circulatory system; Z90.710 Acquired absence of both cervix and uterus
CPT/HCPCS: 36415; 71045; 72100; 73502; 80048; 80053; 85025; 85610; 85730; 93005; 94760; 96374; 99285